=== PATIENT | male | born 1935 | race Caucasian/White ===

== ENCOUNTER 2018-03-22 14:33 | Inpatient (IN) | payer MEDICARE, OTHER ==
--- NOTE | 2018-03-22 15:12 | ED Physician Documentation ---
PD HPI GI BLEED - Stated complaint Stated Complaint: BLOODY STOOL - Chief complaint Chief Complaint: Abd Pain - History obtained from History obtained from: Patient - History of Present Illness Timing - onset: How many days ago (3) Timing - duration: Days (3) Timing - details: Abrupt onset, Still present Associated symptoms: Black/tarry stool. No: Vomiting, Hematemesis, Maroon stool, Diarrhea, Constipation, Abdominal pain, Fever Contributing factors: NSAID use (Aleve twice daily regularly). No: Sick contact, Bad food, Aspirin use Similar symptoms before: Has not had sx before Recently seen: Not recently seen Review of Systems Constitutional: reports: Fatigue. denies: Fever, Myalgias Nose: denies: Rhinorrhea / runny nose, Congestion Throat: denies: Sore throat Cardiac: denies: Chest pain / pressure Respiratory: denies: Dyspnea GI: reports: Bloody / black stool. denies: Abdominal Pain, Nausea, Vomiting, Constipation, Diarrhea : denies: Dysuria, Frequency Neurologic: reports: Generalized weakness. denies: Focal weakness, Near syncope PD PAST MEDICAL HISTORY - Past Medical History Cardiovascular: None Neuro: None Endocrine/Autoimmune: Type 2 diabetes : Benign prostate hypertrophy Musculoskeletal: Chronic back pain - Present Medications Home Medications: Ambulatory Orders Medication Instructions Recorded Confirmed Cholecalciferol (Vitamin D3) 2,000 unit PO DAILY 03/22/18 03/22/18 [Vitamin D] Cod Liver Oil 1 each PO DAILY 03/22/18 03/22/18 Finasteride 5 mg PO DAILY 03/22/18 03/22/18 Glucosamine HCl 1,500 mg PO DAILY 03/22/18 03/22/18 Multivitamin [Multivitamins] 1 each PO DAILY 03/22/18 03/22/18 Naproxen [Naprosyn] 500 mg PO Q8H 03/22/18 03/22/18 Omeprazole 20 mg PO DAILY 03/22/18 03/22/18 Pravastatin [Pravachol] 10 mg PO DAILY 03/22/18 03/22/18 Primidone 50 mg PO DAILY 03/22/18 03/22/18 diphenhydrAMINE [Benadryl] 25 mg PO ONCE 03/22/18 03/22/18 - Allergies Allergies/Adverse Reactions: Allergies Allergy/AdvReac Type Severity Reaction Status Date / Time Sulfa (Sulfonamide AdvReac Rash Verified 03/22/18 14:44 Antibiotics) PD ED PE NORMAL - Vitals Vital signs reviewed: Yes - General General: Alert and oriented X 3, No acute distress, Well developed/nourished - HEENT HEENT: Moist mucous membranes, Pharynx benign - Neck Neck: Supple, no meningeal sign, No adenopathy, No JVD - Cardiac Cardiac: RRR, No murmur - Respiratory Respiratory: Clear bilaterally - Abdomen Abdomen: Normal bowel sounds, Soft, Non tender, Non distended, No organomegaly - Male Male : Deferred - Rectal Rectal: Other (black to purple stool in vault, markedly guiac positive. No hemorrhoids. ) - Back Back: No CVA TTP - Derm Derm: Normal color, Warm and dry - Extremities Extremities: No deformity, No tenderness to palpate, Normal ROM s pain, No edema, No calf tenderness / cord - Neuro Neuro: Alert and oriented X 3 Eye Opening: Spontaneous Motor: Obeys Commands Verbal: Oriented GCS Score: 15 - Psych Psych: Normal mood, Normal affect Results - Vitals Vitals: Vital Signs - 24 hr 03/22/18 03/22/18 14:42 16:33 Temperature 36 C L Heart Rate 92 74 Respiratory 20 10 L Rate Blood Pressure 125/67 125/56 L O2 Saturation 100 100 Oxygen O2 Source Room air - Labs Labs: Laboratory Tests 03/22/18 03/22/18 16:10 16:10 WBC 8.7 RBC 2.61 L Hgb 8.3 L Hct 25.4 L MCV 97.5 H MCH 31.7 H MCHC 32.5 RDW 13.9 Plt Count 281 MPV 7.5 Neut # (Auto) 5.6 Lymph # (Auto) 2.1 [place] # (Auto) 0.6 Eos # (Auto) 0.3 Baso # (Auto) 0.0 Absolute Nucleated RBC 0.01 Nucleated RBC % 0.1 Sodium 139 Potassium 3.8 Chloride 101 Carbon Dioxide 26 Anion Gap 12.0 BUN 38 H Creatinine 1.3 H Estimated GFR (MDRD) 53 L Glucose 191 H Calcium 8.7 Magnesium 1.8 Total Bilirubin 0.7 AST 35 ALT 20 Alkaline Phosphatase 74 Total Protein 6.3 L Albumin 3.4 Globulin 2.9 Albumin/Globulin Ratio 1.2 Lipase 29 PD MEDICAL DECISION MAKING - ED course Complexity details: reviewed results (Hgb 8.3, will recheck in few hours.), considered differential (3 days of dark stool with general weakness. He does not have any abdominal pain or tenderness. He does take Aleve twice daily regularly for general pains. I would think it most likely to be gastric etiology. Will check his blood count, type and screen, give IV fluids and check orthostatics. I do not see evaluate and imaging at this point so defer any CT or ultrasound. Most useful would be a direct endoscopy.), d/w patient, d/w community health consultant (Matthias Marion, surgery - will consult on patient. ) Departure - Departure Disposition: 66 [facility] DC/Xfer Clinical Impression: GI bleeding Qualifiers: GI bleed type/associated pathology: unspecified gastrointestinal hemorrhage type Qualified Code(s): K92.2 - Gastrointestinal hemorrhage, unspecified Anemia Qualifiers: Anemia type: unspecified type Qualified Code(s): D64.9 - Anemia, unspecified Clinical Impression: (Ruled Out): Abdominal pain Condition: Stable Record reviewed to determine appropriate education?: Yes
[2018-03-22] MEDS ORDERED: SODIUM CHLORIDE 0.9% 1,000 ML IV ONE ×2 (15:39→17:34)
[2018-03-22] MEDS ORDERED: FAMOTIDINE 20 MG/50 ML 50 ML IV ONE (15:40)
[2018-03-22 16:33] LABS: BASOPHILS % (AUTO) 0.6 %; EOSINOPHILS # (AUTO) 0.3 10^3/uL (0.0-0.7); EOSINOPHILS % (AUTO) 3.3 %; HGB - HEMOGLOBIN 8.3 g/dL (14.0-18.0); LYMPHOCYTES # (AUTO) 2.1 10^3/uL (1.5-3.5); LYMPHOCYTES % (AUTO) 24.2 %; MEAN CORPUSCULAR HEMOGLOBIN 31.7 pg (27.0-31.0); MEAN CORPUSCULAR HGB CONC 32.5 g/dL (32.0-36.0); MEAN CORPUSCULAR VOLUME 97.5 fL (80.0-94.0); MEAN PLATELET VOLUME 7.5 fL (7.4-11.4); MONOCYTES # (AUTO) 0.6 10^3/uL (0.0-1.0); NEUTROPHILS # (AUTO) 5.6 10^3/uL (1.5-6.6); NEUTROPHILS % (AUTO) 64.9 %; PLT - PLATELET COUNT 281 10^3/uL (130-450); RED BLOOD COUNT 2.61 10^6/uL (4.70-6.10); RED CELL DISTRIBUTION WIDTH 13.9 % (12.0-15.0); WHITE BLOOD COUNT 8.7 x10^3/uL (4.8-10.8)
[2018-03-22 16:46] LABS: ALBUMIN 3.4 g/dL (3.2-5.5); ALBUMIN/GLOBULIN RATIO 1.2 (1.0-2.2); BILIRUBIN,TOTAL 0.7 mg/dL (0.2-1.0); CALCIUM 8.7 mg/dL (8.5-10.3); CREATININE 1.3 mg/dL (0.6-1.2); MAGNESIUM 1.8 mg/dL (1.7-2.8); TOTAL PROTEIN 6.3 g/dL (6.7-8.2)
[2018-03-22] MEDS ORDERED: PANTOPRAZOLE 40 MG VIAL IVP STA (17:34)
--- NOTE | 2018-03-22 17:49 | HISTORY & PHYSICAL EXAMINATION ---
Chief Complaint - Chief Complaint Chief Complaint: Melena with no abd pain on Alleve for chronic back pain GI Bleed Admit Template - Admitted From Admitted from: ED - History Obtained From Records Reviewed: RN notes reviewed History obtained from: Patient Exam limitations: No limitations (Pleasant 82 y/p) - History of Present Illness Context-bleeding started w/: reports: Bowel movement Timing: reports: Gradual onset Improved with: reports: Nothing Associated symptoms: reports: Feeling faint / dizzy, General Weakness (This is a pleasant 82 y/o with Type 2 DM, BPH Chroninc LBP who takes alleve prn for his back pain was shoveling now and noticed progressive weakness has been for the last 3 days having dark maroon like stools looking somewhat purple in color with increase in volume w/o abd pain, nause, emesis, hemoptysis, MP rash, joint swelling, chest pain, SOB, or other GI/ symptoms. On exam he had some mild pallor, initial hgb 8.3 and unknown baseline, would admit for possible upper endoscopy, Dr. Marion aware.) HPI Comment/Other: This is a pleasant 82 y/o with Type 2 DM, essential tremors, HLP, BPH Chronic LBP who takes alleve prn for his back pain was shoveling now and noticed progressive weakness has been for the last 3 days having dark maroon like stools looking somewhat purple in color with increase in volume w/o abd pain, nausea, emesis, hemoptysis, MP rash, joint swelling, chest pain, SOB, or other GI/ symptoms. On exam he had some mild pallor, initial hgb 8.3 and unknown baseline, would admit for possible upper endoscopy, Dr. Marion aware. PMH/PSH - Past Medical History Cardiovascular: positive: None Respiratory: positive: None Neuro: positive: None Endocrine/Autoimmune: positive: Type 2 diabetes GI: positive: GERD : positive: Benign prostate hypertrophy Musculoskeletal: positive: Chronic back pain Derm: positive: None MRSA Hx?: No - Past Surgical History General: positive: Hiatal hernia repair Social & Family Hx - Social History Does the pt smoke?: No Smoking Status: Never smoker Does the pt drink ETOH?: No Does the pt have substance abuse?: No Meds/Allgy - Home Medications Home Medications: Ambulatory Orders Medication Instructions Recorded Confirmed Cholecalciferol (Vitamin D3) 2,000 unit PO DAILY 03/22/18 03/22/18 [Vitamin D] Cod Liver Oil 1 each PO DAILY 03/22/18 03/22/18 Finasteride 5 mg PO DAILY 03/22/18 03/22/18 Glucosamine HCl 1,500 mg PO DAILY 03/22/18 03/22/18 Multivitamin [Multivitamins] 1 each PO DAILY 03/22/18 03/22/18 Naproxen [Naprosyn] 500 mg PO Q8H 03/22/18 03/22/18 Omeprazole 20 mg PO DAILY 03/22/18 03/22/18 Pravastatin [Pravachol] 10 mg PO DAILY 03/22/18 03/22/18 Primidone 50 mg PO DAILY 03/22/18 03/22/18 diphenhydrAMINE [Benadryl] 25 mg PO ONCE 03/22/18 03/22/18 - Allergies Allergies/Adverse Reactions: Allergies Allergy/AdvReac Type Severity Reaction Status Date / Time Sulfa (Sulfonamide AdvReac Rash Verified 03/22/18 14:44 Antibiotics) Review of Systems - Constitutional Constitutional: reports: Fatigue, Weakness - Ears, Nose & Throat Ears, Nose & Throat: denies: Tinnitus, Vertigo - Cardiovascular Cariovascular: denies: Irregular heart rate, Palpitations, Chest pain, Lightheadedness, Syncope, Exertional dyspnea - Respiratory Respiratory: denies: Sputum production, Wheezing, Hemoptysis, Orthopnea, SOB at rest, SOB with exertion, Pleuritic pain - Gastrointestinal Gastrointestinal: reports: Black stools, Bloody stools. denies: Abdominal pain, Abdominal distention, Constipation, Diarrhea, Nausea, Vomiting, Bile emesis, Justin blood emesis, Coffee grounds emesis, Reflux/heartburn, Bloating, Poor appetite - Genitourinary Genitourinary: denies: Dysuria, Frequency, Urgency - Musculoskeletal Musculoskeletal: denies: Muscle pain, Back pain, Stiffness - Integumentary Integumentary: denies: Rash, Pruritis, Lesions - Neurological Neurological: denies: General weakness, Focal weakness, Headache, Memory problems - Psychiatric Psychiatric: denies: Depression, Hallucinations - Endocrine Endocrine: denies: Polyuria, Polydypsia, Polyphagia - Hematologic/Lymphatic Hematologic/Lymphatic: reports: Blood clots. denies: Anemia Prior Level of Functionality: Independent with home ADL's Exam - Vital Signs Reviewed Vital Signs: Yes Vital Signs: Vital Signs x48h Temp Pulse Resp BP Pulse Ox 03/22/18 16:33 74 10 L 125/56 L 100 03/22/18 14:42 36 C L 92 20 125/67 100 - Physical Exam General Appearance: positive: No acute distress, Alert Eyes Bilateral: positive: Normal inspection, PERRL, EOMI, Conjunctivae nml, No scleral icterus ENT: positive: ENT inspection nml, Pharynx nml Neck: positive: Thyroid nml, No JVD, Trachea midline. negative: Thyromegaly Respiratory: positive: Chest non-tender, No respiratory distress, Breath sounds nml Cardiovascular: positive: Regular rate & rhythm, No murmur, No gallop. negative: Irregularly irregular, JVD present Peripheral Pulses: positive: 2+ Abdomen: positive: Non-tender, No organomegaly, Nml bowel sounds, No distention. negative: Tenderness Rectal: positive: Stool - heme POS Skin: positive: Color nml, No rash, Warm, Pallor. negative: Skin rash Extremities: positive: Non-tender, Full ROM, Nml appearance. negative: Pedal edema, Joint swelling Neurologic/Psychiatric: positive: Oriented x3, CN's nml (2-12) Results - Lab Results Lab results reviewed: Yes Fish Bones: 03/22/18 16:10 03/22/18 16:10 Other Lab Results: Lab Results x24hrs 03/22/18 03/22/18 03/22/18 Range/Units 16:10 16:10 16:10 WBC 8.7 (4.8-10.8) x10^3/uL RBC 2.61 L (4.70-6.10) 10^6/uL Hgb 8.3 L (14.0-18.0) g/dL Hct 25.4 L (42.0-52.0) % MCV 97.5 H (80.0-94.0) fL MCH 31.7 H (27.0-31.0) pg MCHC 32.5 (32.0-36.0) g/dL RDW 13.9 (12.0-15.0) % Plt Count 281 (130-450) 10^3/uL MPV 7.5 (7.4-11.4) fL Neut # (Auto) 5.6 (1.5-6.6) 10^3/uL Lymph # (Auto) 2.1 (1.5-3.5) 10^3/uL [place] # (Auto) 0.6 (0.0-1.0) 10^3/uL Eos # (Auto) 0.3 (0.0-0.7) 10^3/uL Baso # (Auto) 0.0 (0.0-0.1) 10^3/uL Absolute Nucleated RBC 0.01 x10^3/uL Nucleated RBC % 0.1 /100WBC Sodium 139 (135-145) mmol/L Potassium 3.8 (3.5-5.0) mmol/L Chloride 101 (101-111) mmol/L Carbon Dioxide 26 (21-32) mmol/L Anion Gap 12.0 (6-13) BUN 38 H (6-20) mg/dL Creatinine 1.3 H (0.6-1.2) mg/dL Estimated GFR (MDRD) 53 L (>89) Glucose 191 H (70-100) mg/dL Calcium 8.7 (8.5-10.3) mg/dL Magnesium 1.8 (1.7-2.8) mg/dL Total Bilirubin 0.7 (0.2-1.0) mg/dL AST 35 (10-42) IU/L ALT 20 (10-60) IU/L Alkaline Phosphatase 74 (42-121) IU/L Total Protein 6.3 L (6.7-8.2) g/dL Albumin 3.4 (3.2-5.5) g/dL Globulin 2.9 (2.1-4.2) g/dL Albumin/Globulin Ratio 1.2 (1.0-2.2) Lipase 29 (22-51) U/L Blood Type O POSITIVE Antibody Screen NEGATIVE - EKG Results EKG Interpreted Independently: No Impression/Plan - Problem List Problem List: 1. UGIB sec to NSAIDS vs bleeding PUD 2. Acute blood loss anemia 3. Generalized weakness sec to above 4. BPH 5. Hyperlipidemia 6. Essential tremors 7. Advanced Care planning and counseling 8. Type 2 DM Plan: Will admit to tele/obs. NPO, bowel rest, start IV protonic 40 mg BID plus sandostatin gtt, IVF's to run, place on ISS with NPO protocol, check iron, vitb12/FA due to macrocytosis, TSH, HgbA1c. Patient likely has a NSAID induced bleeding ulcer due to the chronicity of taking naproxen for his chronic back pain. Would need an EGD with Dr. Marion who was consulted in ED. Serial H/H with transfusion if Hgb<7 g/dl due to no evidence of cardiac disease. DVT ppx with SCD's only, already will have a PPI for dvt ppx. Advanced Care planning and counseling was done. Patient has a clear understanding of his medical condition and we discussed goals of care, symptom mgmt in terms of giving blood transfusions, placing on NPO for bowel rest and managing his diabetes. In the setting of cardiac or neurological events he expressed his wishes for full resuscitative efforts but would not continue with aggressive means if medical futility was present. Code status: Full code Core Measures - Anticipated LOS I expect patient to be DC'd or transferred within 96 hours.: Yes - Issues Hospital Issues and Management Plan: EGD, NPO, IVF;s and supportive care, IV PPI/Sandostantin - DVT/VTE - Prophylaxis VTE/DVT Device ordered at admit?: Yes VTE/DVT Prophylaxis med ordered at admit?: No Not Ordered - Medical Reason: Contraindicated - Stroke - Rehab Assessment Rehab services assessment to be ordered?: No Not Ordered - Medical Reason: Not indicated - AMI - Statin at Admit Aspirin Prescribed on Admit: No Not Ordered - Medical Reason: Not indicated
[2018-03-22] MEDS ORDERED: ONDANSETRON 4 MG/2 ML VIAL IVP PRN (17:52)
[2018-03-22] MEDS ORDERED: PROCHLORPERAZINE 10 MG/2 ML VIAL IVP PRN (17:52)
[2018-03-22 18:26] LABS: % IRON SATURATION 7 % (20-50); IRON 28 ug/dL (45-182); TOTAL IRON BINDING CAPACITY 384 ug/dL (250-450); TRANSFERRIN 274 mg/dL (180-329)
[2018-03-22 18:38] LABS: THYROID STIMULATING HORMONE 1.3 uIU/mL (0.34-5.60)
[2018-03-22 19:02] LABS: HB2 TOTAL 8.6 g/dL; HEMOGLOBIN A1C 0.43 g/dL; HEMOGLOBIN A1C % 6.7 % (4.6-6.2)
[2018-03-22] MEDS: D5NS W/20 MEQ KCL 1,000 ML IV SCH (19:02)
[2018-03-22 19:26] LABS: BASOPHILS # (AUTO) 0.1 10^3/uL (0.0-0.1); BASOPHILS % (AUTO) 0.6 %; EOSINOPHILS # (AUTO) 0.3 10^3/uL (0.0-0.7); EOSINOPHILS % (AUTO) 3.1 %; HGB - HEMOGLOBIN 7.3 g/dL (14.0-18.0); LYMPHOCYTES # (AUTO) 2.7 10^3/uL (1.5-3.5); LYMPHOCYTES % (AUTO) 29.4 %; MEAN CORPUSCULAR HEMOGLOBIN 32.3 pg (27.0-31.0); MEAN CORPUSCULAR HGB CONC 32.5 g/dL (32.0-36.0); MEAN CORPUSCULAR VOLUME 99.3 fL (80.0-94.0); MEAN PLATELET VOLUME 7.4 fL (7.4-11.4); MONOCYTES % (AUTO) 10.3 %; NEUTROPHILS # (AUTO) 5.3 10^3/uL (1.5-6.6); NEUTROPHILS % (AUTO) 56.6 %; PLT - PLATELET COUNT 264 10^3/uL (130-450); RED BLOOD COUNT 2.25 10^6/uL (4.70-6.10); RED CELL DISTRIBUTION WIDTH 13.7 % (12.0-15.0); WHITE BLOOD COUNT 9.3 x10^3/uL (4.8-10.8)
--- NOTE | 2018-03-22 19:53 | CONSULTATION NOTE ---
Referring Provider Name of Referring Provider:: Consult Date: 03/22/18 Chief Complaint - Chief Complaint Chief Complaint: black tarry stools History of Present Illness - Admitted From Admitted From:: ER - History Obtained From Records Reviewed: yes History obtained from: pt, records Exam Limitations: none - History of Present Illness HPI Comment/Other: 82 yo male with 3 days of passing black tarry bowel movements. Up to 3 per day. No N/V, abd pain, hematochezia, previous similar episodes, dizziness or syncope, or wt loss. No hx PUD. He does have chronic GERD which is well controlled with 20 mg omeprazole daily. Neg Fh GI tumors. His last and only colonoscopy was approximately [address] [facility], which was incomplete and was foll owed by a barium enema which was nl per pt. He takes naproxen 500 mg BID for chronic low back pain; no tobacco; minimal alcohol, denies other NSAID or steroid use. History - Past Medical History Cardiovascular: reports: None Respiratory: reports: None Neuro: reports: None Endocrine/Autoimmune: reports: Type 2 diabetes GI: reports: GERD : reports: Benign prostate hypertrophy Musculoskeletal: reports: Chronic back pain Derm: reports: None MRSA Hx?: No - Past Surgical History General: reports: Colonoscopy, Other (BIH, umbilical hernia repairs) Neuro: reports: Craniotomy (x 2 for benign tumor) - Family & Social History Family History Comment/Other: neg for GI tumors Living arrangement: At home - Substance History Use: Uses substance without health or social issues: NONE Meds/Allgy - Home Medications Home Medications: Ambulatory Orders Medication Instructions Recorded Confirmed Cholecalciferol (Vitamin D3) 2,000 unit PO DAILY 03/22/18 03/22/18 [Vitamin D] Cod Liver Oil 1 each PO DAILY 03/22/18 03/22/18 Finasteride 5 mg PO DAILY 03/22/18 03/22/18 Glucosamine HCl 1,500 mg PO DAILY 03/22/18 03/22/18 Multivitamin [Multivitamins] 1 each PO DAILY 03/22/18 03/22/18 Naproxen [Naprosyn] 500 mg PO Q8H 03/22/18 03/22/18 Omeprazole 20 mg PO DAILY 03/22/18 03/22/18 Pravastatin [Pravachol] 10 mg PO DAILY 03/22/18 03/22/18 Primidone 50 mg PO DAILY 03/22/18 03/22/18 diphenhydrAMINE [Benadryl] 25 mg PO ONCE 03/22/18 03/22/18 - Allergies Allergies/Adverse Reactions: Allergies Allergy/AdvReac Type Severity Reaction Status Date / Time Sulfa (Sulfonamide AdvReac Rash Verified 03/22/18 14:44 Antibiotics) Review of Systems - Constitutional Constitutional: denies: Weight loss - Cardiovascular Cariovascular: denies: Chest pain, Lightheadedness, Syncope - Respiratory Respiratory: denies: Cough, Sputum production - Gastrointestinal Gastrointestinal: reports: Change in bowel habits, Black stools, Reflux/heartburn. denies: Abdominal pain, Abdominal distention, Constipation, Diarrhea, Rectal bleeding, Bloody stools, Nausea, Vomiting, Coffee grounds emesis, Bloating, Poor appetite - Hematologic/Lymphatic Hematologic/Lymphatic: denies: Blood clots, Bleeding tendencies - All Other Systems All Other Systems: reports: Reviewed and negative Exam - Vital Signs Reviewed Vital Signs: Yes Vital Signs: Vital Signs x48h Temp Pulse Pulse Resp BP BP Pulse Ox 03/22/18 19:30 36.6 C 81 18 113/58 L 100 03/22/18 18:00 75 13 123/54 L 100 03/22/18 16:33 74 10 L 125/56 L 100 03/22/18 14:42 36 C L 92 20 125/67 100 - Physical Exam General Appearance: positive: No acute distress, Alert Eyes Bilateral: positive: Normal inspection, No scleral icterus, Other (conjunctivae pale) ENT: positive: ENT inspection nml, Pharynx nml, Dry mucous membranes Neck: positive: Nml inspection, No JVD. negative: Lymphadenopathy (R), Lymphadenopathy (L) Respiratory: positive: Chest non-tender, No respiratory distress, Breath sounds nml. negative: Wheezes, Rales, Rhonchi Cardiovascular: positive: Regular rate & rhythm, No murmur, No gallop Abdomen: positive: Non-tender, No organomegaly, Nml bowel sounds, No distention. negative: Guarding, Rebound, Hepatomegaly, Splenomegaly, Mass Skin: positive: Color nml, No rash, Warm, Dry. negative: Cyanosis Extremities: positive: No pedal edema. negative: Calf tenderness Neurologic/Psychiatric: positive: Oriented x3 Conclusion/Plan - Diagnosis Diagnosis: GI bleed/melena. DDX includes UGI sources such as PUD, ulcerative esophagitis, dieulafoy lesion, angiodysplasia, UGI malignancy, doubt varices, doubt LGI source but can not r/o. - Plan Plan: Agree with IVF, empiric high dose PPI therapy, transfuse as necessary. EGD in am. PAR conference with pt. IF neg, will need colonoscopy for further evaluation. thanks, - Lab Results Lab results reviewed: Yes Peter Bones: 03/22/18 17:10 03/22/18 16:10
[2018-03-22] MEDS: INSULIN REGULAR HUMAN 100 UNIT/1 ML 10 ML MDV SUBQ SCH (19:58)
[2018-03-22] MEDS: OCTREOTIDE 500 MCG in SODIUM CHLORIDE 0.9% 100ML 99 ML IV SCH (20:18)
[2018-03-22] MEDS: PANTOPRAZOLE 40 MG VIAL IVP SCH (20:47)
[2018-03-22 22:03] LABS: HGB - HEMOGLOBIN 6.4 g/dL (14.0-18.0)
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
[2018-03-22] MEDS ORDERED: SODIUM CHLORIDE 0.9% 500 ML IV ONE (22:17)
[2018-03-23] MEDS: INSULIN REGULAR HUMAN 100 UNIT/1 ML 10 ML MDV SUBQ SCH ×4 (00:07→18:19)
[2018-03-23] MEDS: SODIUM CHLORIDE FLUSH 0.9% 10 ML SYRINGE IVP SCH ×3 (00:09→18:19)
[2018-03-23] MEDS ORDERED: SODIUM CHLORIDE 0.9% 500 ML IV ONE (01:19)
[2018-03-23] MEDS: ACETAMINOPHEN 325 MG TABLET PO PRN ×2 (01:41→12:25)
[2018-03-23] MEDS: SODIUM CHLORIDE FLUSH 0.9% 10 ML SYRINGE IVP PRN ×2 (01:43→01:44)
[2018-03-23] MEDS: D5NS W/20 MEQ KCL 1,000 ML IV SCH ×3 (02:07→19:31)
[2018-03-23 05:43] LABS: BASOPHILS # (AUTO) 0.1 10^3/uL (0.0-0.1); BASOPHILS % (AUTO) 0.8 %; EOSINOPHILS # (AUTO) 0.2 10^3/uL (0.0-0.7); EOSINOPHILS % (AUTO) 2.9 %; HGB - HEMOGLOBIN 8.1 g/dL (14.0-18.0); LYMPHOCYTES # (AUTO) 1.5 10^3/uL (1.5-3.5); LYMPHOCYTES % (AUTO) 18.2 %; MEAN CORPUSCULAR HEMOGLOBIN 31.4 pg (27.0-31.0); MEAN CORPUSCULAR HGB CONC 33.7 g/dL (32.0-36.0); MEAN CORPUSCULAR VOLUME 93.4 fL (80.0-94.0); MEAN PLATELET VOLUME 7.5 fL (7.4-11.4); MONOCYTES # (AUTO) 0.8 10^3/uL (0.0-1.0); MONOCYTES % (AUTO) 9.6 %; NEUTROPHILS # (AUTO) 5.7 10^3/uL (1.5-6.6); NEUTROPHILS % (AUTO) 68.5 %; PLT - PLATELET COUNT 204 10^3/uL (130-450); RED BLOOD COUNT 2.58 10^6/uL (4.70-6.10); RED CELL DISTRIBUTION WIDTH 15.7 % (12.0-15.0); WHITE BLOOD COUNT 8.3 x10^3/uL (4.8-10.8)
[2018-03-23 05:50] LABS: ALBUMIN 2.8 g/dL (3.2-5.5); CALCIUM 7.5 mg/dL (8.5-10.3); CREATININE 1.1 mg/dL (0.6-1.2); PHOSPHORUS 3.3 mg/dL (2.5-4.6)
[2018-03-23] MEDS: OCTREOTIDE 500 MCG in SODIUM CHLORIDE 0.9% 100ML 99 ML IV SCH ×2 (06:08→19:26)
--- NOTE | 2018-03-23 07:44 | ANESTHESIA ---
Pre-Anesthesia VS, & Labs - Diagnosis Diagnosis GI bleed/melena. DDX includes UGI sources such as PUD, ulcerative esophagitis, dieulafoy lesion , angiodysplasia, UGI malignancy, doubt varices, doubt LGI source but can not r/o. - Procedure EGD Vital Signs: Temp Pulse Resp BP Pulse Ox 36.5 C 31 L 16 134/70 H 100 03/23/18 04:25 03/23/18 04:25 03/23/18 04:25 03/23/18 04:25 03/23/18 04:25 Height 6 ft Weight (kg) 89.5 kg Body Mass Index 26.7 - NPO >8 hours - Lab Results Current Lab Results: Laboratory Tests 03/23/18 05:58: POC Whole Bld Glucose 176 H 03/23/18 05:21: Sodium 137, Potassium 4.3, Chloride 104, Carbon Dioxide 24, Anion Gap 9.0, BUN 33 H, Creatinine 1.1, Estimated GFR (MDRD) 64 L, Glucose 203 H, Calcium 7.5 L, Phosphorus 3.3, Albumin 2.8 L 03/23/18 05:21: WBC 8.3, RBC 2.58 L, Hgb 8.1 L, Hct 24.1 L, MCV 93.4, MCH 31.4 H , MCHC 33.7, RDW 15.7 H, Plt Count 204, MPV 7.5, Neut # (Auto) 5.7, Lymph # (Auto) 1.5, [place] # (Auto) 0.8, Eos # (Auto) 0.2, Baso # (Auto) 0.1, Absolute Nucleated RBC 0.00, Nucleated RBC % 0.0 03/22/18 23:48: POC Whole Bld Glucose 228 H 03/22/18 21:50: Hgb 6.4 L*, Hct 19.3 L* 03/22/18 19:12: POC Whole Bld Glucose 119 H 03/22/18 17:10: Blood Type Recheck O POSITIVE 03/22/18 17:10: WBC 9.3, RBC 2.25 L, Hgb 7.3 L, Hct 22.3 L, MCV 99.3 H, MCH 32.3 H, MCHC 32.5, RDW 13.7, Plt Count 264, MPV 7.4, Neut # (Auto) 5.3, Lymph # (Auto) 2.7, [place] # (Auto) 1.0, Eos # (Auto) 0.3, Baso # (Auto) 0.1, Absolute Nucleated RBC 0.00, Nucleated RBC % 0.0 03/22/18 16:10: Blood Type Cancelled, Antibody Screen Cancelled, Crossmatch IS Only See Detail 03/22/18 16:10: Glycated Hemoglobin 6.7 H, Estim Average Glucose 146 H 03/22/18 16:10: Blood Type Cancelled, Antibody Screen Cancelled, Crossmatch IS Only See Detail 03/22/18 16:10: Blood Type O POSITIVE, Antibody Screen NEGATIVE 03/22/18 16:10: Sodium 139, Potassium 3.8, Chloride 101, Carbon Dioxide 26, Anion Gap 12.0, BUN 38 H, Creatinine 1.3 H, Estimated GFR (MDRD) 53 L, Glucose 191 H, Calcium 8.7, Magnesium 1.8, Total Bilirubin 0.7, AST 35, ALT 20, Alkaline Phosphatase 74, Total Protein 6.3 L, Albumin 3.4, Globulin 2.9, Albumin/Globulin Ratio 1.2, Lipase 29 03/22/18 16:10: WBC 8.7, RBC 2.61 L, Hgb 8.3 L, Hct 25.4 L, MCV 97.5 H, MCH 31.7 H, MCHC 32.5, RDW 13.9, Plt Count 281, MPV 7.5, Neut # (Auto) 5.6, Lymph # (Auto) 2.1, [place] # (Auto) 0.6, Eos # (Auto) 0.3, Baso # (Auto) 0.0, Absolute Nucleated RBC 0.01, Nucleated RBC % 0.1 03/22/18 15:40: Vitamin B12 251, Folate 31.00, TSH 1.30 03/22/18 15:40: Iron 28 L, TIBC 384, % Saturation 7 L, Transferrin 274 Fish Bones: 03/23/18 05:21 03/23/18 05:21 Home Medications and Allergies Home Medications: Ambulatory Orders Cholecalciferol (Vitamin D3) [Vitamin D] 2,000 unit PO DAILY 03/22/18 Cod Liver Oil 1 each PO DAILY 03/22/18 Finasteride 5 mg PO DAILY 03/22/18 Glucosamine HCl 1,500 mg PO DAILY 03/22/18 Multivitamin [Multivitamins] 1 each PO DAILY 03/22/18 Naproxen [Naprosyn] 500 mg PO Q8H 03/22/18 Omeprazole 20 mg PO DAILY 03/22/18 Pravastatin [Pravachol] 10 mg PO DAILY 03/22/18 Primidone 50 mg PO DAILY 03/22/18 diphenhydrAMINE [Benadryl] 25 mg PO ONCE 03/22/18 Active Medications Acetaminophen (Tylenol) 650 mg PO Q4HR PRN PRN Reason: Pain or Fever > 38C (100.4F) Last Admin: 03/23/18 01:41 Dose: 650 mg Potassium Chloride/Dextrose/Sod Cl () 1,000 mls @ 125 mls/hr IV .Q8H [facility] Last Admin: 03/23/18 02:07 Dose: 125 mls/hr Octreotide Acetate 500 mcg/ (Sodium Chloride) 100 mls @ 10 mls/hr IV .Q10H [facility] Last Admin: 03/23/18 06:08 Dose: 50 mcg/hr, 10 mls/hr Insulin Human Regular (Novolin R) 2 - 10 unit SUBQ Q6HR [facility]; Protocol Last Admin: 03/23/18 06:09 Dose: 2 unit Ondansetron HCl (Zofran Inj) 4 mg IVP Q6HR PRN PRN Reason: Nausea / Vomiting Pantoprazole Sodium (Protonix) 40 mg IVP BID [facility] Last Admin: 03/22/18 20:47 Dose: 40 mg Polyethylene Glycol (Miralax) 17 gm PO DAILY [facility] Prochlorperazine Edisylate (Compazine Inj) 10 mg IVP Q6HR PRN PRN Reason: Nausea / Vomiting Sodium Chloride (Normal Saline Flush 0.9%) 10 ml IVP PRN PRN PRN Reason: NEEDED PER PROVIDER ORDERS Last Admin: 03/23/18 01:44 Dose: 10 ml Sodium Chloride (Normal Saline Flush 0.9%) 10 ml IVP 0100,0900,1700 [facility] Last Admin: 03/23/18 00:09 Dose: Not Given Cholecalciferol (Vitamin D3) [Vitamin D] 2,000 unit PO DAILY 03/22/18 Cod Liver Oil 1 each PO DAILY 03/22/18 Finasteride 5 mg PO DAILY 03/22/18 Glucosamine HCl 1,500 mg PO DAILY 03/22/18 Multivitamin [Multivitamins] 1 each PO DAILY 03/22/18 Naproxen [Naprosyn] 500 mg PO Q8H 03/22/18 Omeprazole 20 mg PO DAILY 03/22/18 Pravastatin [Pravachol] 10 mg PO DAILY 03/22/18 Primidone 50 mg PO DAILY 03/22/18 diphenhydrAMINE [Benadryl] 25 mg PO ONCE 03/22/18 Allergies/Adverse Reactions: Allergies Allergy/AdvReac Type Severity Reaction Status Date / Time Sulfa (Sulfonamide AdvReac Rash Verified 03/22/18 14:44 Antibiotics) Anes History & Medical History - Anesthetic History Anesthesia Complications: reports: No previous complications - Medical History Cardiovascular: reports: None Pulmonary: reports: None Gastrointestinal: reports: GERD Urinary: reports: Benign prostate hypertrophy Neuro: reports: None, Other (crani for tumor) Musculoskeletal: reports: Chronic back pain Endocrine/Autoimmune: reports: Type 2 diabetes Blood Disorders: reports: None Skin: reports: None Smoking Status: Former smoker - Surgical History General: Colonoscopy, Other (BIH, umbilical hernia repairs) Urologic: Bladder surgery Neurologic: Craniotomy (x 2 for benign tumor) Exam General: Alert Dental: WNL Mouth Opening: Greater than 4 Fingerbreadths Neck Mobility: Normal Respiratory: Lungs clear Cardiovascular: Regular rate Plan Anesthesia Type: MAC Consent for Procedure(s) Verified and Reviewed: Yes Code Status: Attempt Resuscitation ASA classification: 2-Mild systemic disease Is this case an emergency?: Yes
--- NOTE | 2018-03-23 08:16 | PROVIDER PROGRESS NOTE ---
Assessment/Plan - Problem List (1) GI bleeding Qualifiers: GI bleed type/associated pathology: unspecified gastrointestinal hemorrhage type Qualified Code(s): K92.2 - Gastrointestinal hemorrhage, unspecified Assessment/Plan: Ongoing, etiology as yet unclear. Hemodynamically stable; plan EGD this morning. - Current Meds Current Meds: Current Medications Generic Name Dose Route Start Last Admin Trade Name Freq PRN Reason Stop Dose Admin Acetaminophen 650 mg 03/23/18 01:22 03/23/18 01:41 Tylenol PO 650 mg Q4HR PRN Administration Pain or Fever > 38C (100.4F) Potassium Chloride/Dextrose/Sod Cl 1,000 mls @ 125 mls/hr 03/22/18 19:00 03/23/18 02:07 IV 125 mls/hr .Q8H [facility] Administration Octreotide Acetate 500 mcg/ 100 mls @ 10 mls/hr 03/22/18 20:00 03/23/18 06:08 Sodium Chloride IV 50 mcg/hr .Q10H [facility] 10 mls/hr Administration 50 MCG/HR Insulin Human Regular 2 - 10 unit 03/22/18 19:00 03/23/18 06:09 Novolin R SUBQ 2 unit Q6HR [facility] Administration Protocol Pantoprazole Sodium 40 mg 03/22/18 20:00 03/22/18 20:47 Protonix IVP 40 mg BID [facility] Administration Sodium Chloride 10 ml 03/22/18 17:52 03/23/18 01:44 Normal Saline Flush 0.9% IVP 10 ml PRN PRN Administration NEEDED PER PROVIDER ORDERS Sodium Chloride 10 ml 03/23/18 01:00 03/23/18 00:09 Normal Saline Flush 0.9% IVP Not Given 0100,0900,1700 [facility] - Lab Result Fish Bone Diagrams: 03/23/18 05:21 03/23/18 05:21 Other Lab Results: Received 2 units PRBCS over night Subjective - Subjective Patient Reports: No Complaints (except passing large black stool last night with dizziness and near syncope; none since; received 2 units prbcs) Objective Vital Signs: Vital Signs - 24 hr 03/22/18 03/22/18 03/22/18 14:42 16:33 18:00 Temperature 36 C L Heart Rate 92 74 75 Heart Rate [ Brachial] Respiratory 20 10 L 13 Rate Blood Pressure 125/67 125/56 L 123/54 L Blood Pressure [Left Brachial artery] Blood Pressure [Right Brachial artery] O2 Saturation 100 100 100 03/22/18 03/22/18 03/22/18 19:30 21:42 21:45 Temperature 36.6 C 36.4 C L Heart Rate Heart Rate [ 81 86 84 Brachial] Respiratory 18 Rate Blood Pressure Blood Pressure 113/47 L [Left Brachial artery] Blood Pressure 113/58 L 130/50 L [Right Brachial artery] O2 Saturation 100 95 98 03/22/18 03/22/18 03/22/18 22:15 22:35 22:45 Temperature 36.7 C 36.7 C 36.7 C Heart Rate 76 73 76 Heart Rate [ 76 Brachial] Respiratory 12 12 12 Rate Blood Pressure 101/46 L 98/47 L 109/42 L Blood Pressure 101/46 L [Left Brachial artery] Blood Pressure [Right Brachial artery] O2 Saturation 99 03/22/18 03/23/18 03/23/18 23:46 01:06 01:34 Temperature 36.5 C 36.6 C 36.6 C Heart Rate 79 76 Heart Rate [ 82 Brachial] Respiratory 17 14 15 Rate Blood Pressure 116/55 L 116/53 L Blood Pressure [Left Brachial artery] Blood Pressure 115/42 L [Right Brachial artery] O2 Saturation 99 03/23/18 03/23/18 03/23/18 01:50 01:58 04:23 Temperature 36.6 C 36.7 C 36.5 C Heart Rate 76 76 81 Heart Rate [ Brachial] Respiratory 15 16 16 Rate Blood Pressure 127/60 114/53 L 134/70 H Blood Pressure [Left Brachial artery] Blood Pressure [Right Brachial artery] O2 Saturation 03/23/18 03/23/18 04:25 08:08 Temperature 36.5 C 36.5 C Heart Rate Heart Rate [ 31 L 76 Brachial] Respiratory 16 16 Rate Blood Pressure Blood Pressure 134/70 H [Left Brachial artery] Blood Pressure 108/58 L [Right Brachial artery] O2 Saturation 100 100 Oxygen O2 Source Nasal cannula I&O (Last 24 Hrs): Intake and Output Totals x24h 03/21/18 03/22/18 03/23/18 23:59 23:59 23:59 Intake Total 1241.3 1681.750 Output Total 425 Balance 1241.3 1256.750 General: Alert, Oriented x3, Cooperative, No acute distress Neck: No JVD Neuro: Alert Abdomen: Soft, No tenderness, No hepatospenomegaly, No masses Extremities: No edema, No tenderness/swelling - Results Results: Laboratory Results WBC 8.3 x10^3/uL (4.8-10.8) 03/23/18 05:21 RBC 2.58 10^6/uL (4.70-6.10) L 03/23/18 05:21 Hgb 8.1 g/dL (14.0-18.0) L 03/23/18 05:21 Hct 24.1 % (42.0-52.0) L 03/23/18 05:21 MCV 93.4 fL (80.0-94.0) 03/23/18 05:21 MCH 31.4 pg (27.0-31.0) H 03/23/18 05:21 MCHC 33.7 g/dL (32.0-36.0) 03/23/18 05:21 RDW 15.7 % (12.0-15.0) H 03/23/18 05:21 Plt Count 204 10^3/uL (130-450) 03/23/18 05:21 MPV 7.5 fL (7.4-11.4) 03/23/18 05:21 Neut # (Auto) 5.7 10^3/uL (1.5-6.6) 03/23/18 05:21 Lymph # (Auto) 1.5 10^3/uL (1.5-3.5) 03/23/18 05:21 [place] # (Auto) 0.8 10^3/uL (0.0-1.0) 03/23/18 05:21 Eos # (Auto) 0.2 10^3/uL (0.0-0.7) 03/23/18 05:21 Baso # (Auto) 0.1 10^3/uL (0.0-0.1) 03/23/18 05:21 Absolute Nucleated RBC 0.00 x10^3/uL 03/23/18 05:21 Nucleated RBC % 0.0 /100WBC 03/23/18 05:21 Sodium 137 mmol/L (135-145) 03/23/18 05:21 Potassium 4.3 mmol/L (3.5-5.0) 03/23/18 05:21 Chloride 104 mmol/L (101-111) 03/23/18 05:21 Carbon Dioxide 24 mmol/L (21-32) 03/23/18 05:21 Anion Gap 9.0 (6-13) 03/23/18 05:21 BUN 33 mg/dL (6-20) H 03/23/18 05:21 Creatinine 1.1 mg/dL (0.6-1.2) 03/23/18 05:21 Estimated GFR (MDRD) 64 (>89) L 03/23/18 05:21 Glucose 203 mg/dL (70-100) H 03/23/18 05:21 POC Whole Bld Glucose 176 mg/dL (70 - 100) H 03/23/18 05:58 Glycated Hemoglobin 6.7 % (4.6-6.2) H 03/22/18 16:10 Estim Average Glucose 146 (70-100) H 03/22/18 16:10 Calcium 7.5 mg/dL (8.5-10.3) L 03/23/18 05:21 Phosphorus 3.3 mg/dL (2.5-4.6) 03/23/18 05:21 Magnesium 1.8 mg/dL (1.7-2.8) 03/22/18 16:10 Iron 28 ug/dL (45-182) L 03/22/18 15:40 TIBC 384 ug/dL (250-450) 03/22/18 15:40 % Saturation 7 % (20-50) L 03/22/18 15:40 Transferrin 274 mg/dL (180-329) 03/22/18 15:40 Total Bilirubin 0.7 mg/dL (0.2-1.0) 03/22/18 16:10 AST 35 IU/L (10-42) 03/22/18 16:10 ALT 20 IU/L (10-60) 03/22/18 16:10 Alkaline Phosphatase 74 IU/L (42-121) 03/22/18 16:10 Total Protein 6.3 g/dL (6.7-8.2) L 03/22/18 16:10 Albumin 2.8 g/dL (3.2-5.5) L 03/23/18 05:21 Globulin 2.9 g/dL (2.1-4.2) 03/22/18 16:10 Albumin/Globulin Ratio 1.2 (1.0-2.2) 03/22/18 16:10 Lipase 29 U/L (22-51) 03/22/18 16:10 Vitamin B12 251 pg/mL (180-914) 03/22/18 15:40 Folate 31.00 ng/mL (5.90 - >24.8) 03/22/18 15:40 TSH 1.30 uIU/mL (0.34-5.60) 03/22/18 15:40 Blood Type O POSITIVE 03/22/18 16:10 Blood Type Recheck O POSITIVE 03/22/18 17:10 Antibody Screen NEGATIVE 03/22/18 16:10 Crossmatch IS Only See Detail 03/22/18 16:10 ABX Reporting Has patient been on IV antibiotics over the past 48 hours?: No
[2018-03-23] MEDS ORDERED: LACTATED RINGERS 1,000 ML IV ONE ×2 (08:45→08:54)
[2018-03-23] MEDS ORDERED: POLYETHYLENE GLYCOL 3350 17 GM PACKET PO SCH (09:00)
[2018-03-23] MEDS ORDERED: PROPOFOL 200 MG/20 ML VIAL IVP ONE (09:06)
[2018-03-23] MEDS ORDERED: LIDOCAINE-MPF 2% 5 ML VIAL IM ONE (09:06)
--- NOTE | 2018-03-23 09:09 | PROCEDURE REPORT ---
Hospitalist Procedure Note - Procedure Note Procedure Note: 03/23/18: EGD: findings: 1. No blood in UGI tract; no UGI source of bleeding identified 2. 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 3. Esophageal polyp at 36 cm 4. Hiatal hernia. Rec: CT angio to attempt localization of source of bleeding today.
[2018-03-23] MEDS ORDERED: IOVERSOL 320 100 ML VIAL IVP ONE ×2 (09:29→10:13)
[2018-03-23] MEDS: PANTOPRAZOLE 40 MG VIAL IVP SCH (09:39)
--- NOTE | 2018-03-23 10:45 | CT Report ---
Reason: LOWER GI BLEED, ASSESS FOR ETIOLOGY Procedure Date: 03/23/2018 Accession Number: [id number] / [id number] Procedure: CT - Abdomen/Pelvis Angio CPT Code: FULL RESULT: EXAM: CT ANGIOGRAM ABDOMEN AND PELVIS WITH AND WITHOUT CONTRAST EXAM DATE: 03/23/2018 09:55 AM. CLINICAL HISTORY: LOWER GI BLEED, ASSESS FOR ETIOLOGY. COMPARISONS: 11/19/2015. TECHNIQUE: Routine helical CT angiogram imaging was performed through the abdomen and pelvis in the arterial phase and without contrast. IV contrast: ISOVUE 300 100mL. Enteric contrast: No. Reconstructions: Coronal, sagittal, and 3D MIP reconstructions. In accordance with CT protocol optimization, one or more of the following dose reduction techniques were utilized for this exam: automated exposure control, adjustment of mA and/or KV based on patient size, or use of iterative reconstructive technique. FINDINGS: Vasculature: Unenhanced images are without evidence of intramural or periaortic hematoma. Extensive calcified plaque is identified. Lung Bases: Basilar scar/atelectasis. Heart size upper normal. Coronary artery calcified plaque. Thoracic aortic calcified plaque. Trace pericardial effusion. Moderate to large hiatal hernia. The abdominal aorta is normal in caliber. Extensive noncalcified plaque. The celiac artery is widely patent as well as the splenic and hepatic artery. No occlusion, stenosis, or aneurysm. The SMA is patent. Mild stenosis is seen proximally due to noncalcified and calcified plaque. No evidence for severe stenosis. The SMA and its branches are patent. The LORETTA is patent. Calcified and noncalcified plaque is seen in the iliac and femoral arteries. No occlusion or severe stenosis. There are rounded areas of high density seen within diverticula in the distal colon likely due to stool-like material. Otherwise, no other areas of high density are seen within the lumen of bowel on the unenhanced images. Arterial phase images are without areas of focal contrast accumulation either in the small bowel or colon. Delayed images are without evidence for accumulation of contrast within the lumen of the small bowel or colon. Abdominal Solid Organs: No hepatic lesions. Multiple at least partially calcified gallstones are seen. No pericholecystic edema. Pancreatic parenchymal volume loss. No peripancreatic edema. Spleen is unremarkable. Adrenal glands appear normal. Right renal nonobstructing calculi are seen. Renal low-attenuation lesions are evident with the largest right peripelvic measuring 4.6 cm. No right ureteral dilatation. There is left perinephric edema and left hydronephrosis due to a collection of several calculi in the left ureter with the largest most distal calculus measures 11 x 8 mm causing left hydronephrosis. Multiple left renal cysts are seen, the largest along the lateral upper pole measuring up to 6 cm. Nonobstructing calculus in the left kidney which appears to be a staghorn calculus and measures up to 18 mm. Delayed images show minimal opacification of the right ureter. Minimal opacification of the left renal collecting system with fluid level. Peritoneal Cavity: Stomach is mildly distended and unremarkable. No small bowel obstruction. No small bowel wall thickening. Duodenal diverticula noted. Small to moderate volume of stool is seen in the colon. Multiple diverticula are seen throughout the colon. No clear evidence for diverticulitis. Appendix is normal. No enlarged retroperitoneal or mesenteric lymph nodes. Pelvic Organs: Urinary bladder is mildly distended and unremarkable prostate calcifications are noted. No bladder calculi. No significant opacification with contrast of the urinary bladder. There is a right ureteral jet identified. Bilateral fatty inguinal hernias. Bones: Degenerative changes lower thoracic and lumbar spine greatest at L5-S1. Facet arthropathy. Degenerative changes of both hip joints. Other: None. IMPRESSION: 1. No focus of extravasation of contrast or contrast accumulation is seen within the lumen of the small bowel or colon to suggest acute bleeding. 2. Abdominal aortic and iliac atherosclerosis. Widely patent mesenteric vasculature. No occlusion or stenosis. 3. Multiple aligned obstructing mid left ureteral calculi with the largest distalmost calculus within the left ureter measuring 11 x 8 mm causing left hydronephrosis. 4. Bilateral nonobstructing renal calculi. 5. Bilateral renal cysts. 6. Colonic diverticulosis. No diverticulitis. No bowel obstruction. No focal bowel wall thickening. 7. Normal appendix. 8. Cholelithiasis. 9. Moderate to large hiatal hernia. RADIA
--- NOTE | 2018-03-23 11:25 | PROVIDER PROGRESS NOTE ---
Assessment/Plan - Problem List (1) GI bleeding Qualifiers: GI bleed type/associated pathology: unspecified gastrointestinal hemorrhage type Qualified Code(s): K92.2 - Gastrointestinal hemorrhage, unspecified Assessment/Plan: The upper endoscopy showed no active bleeding and the CTA of abd/pelvis showed no extravasation of blood to localize the source. Will continue nPO, posibly a bowel prep for colonoscopy, per [facility] [employer] [facility], Dr Francisco Marion. Continue PPI, and avoid ulcerogenic meds, his Naprosyn is on hold. (2) Anemia Qualifiers: Anemia type: iron deficiency Assessment/Plan: Pt had 2 U of PRBCs transfused this a.m., after his Hgb dropped to 6.3. Will follow CBC every 6-12 hours, till bleeding stops and Hgb stabilizes. (3) Syncope due to orthostatic hypotension Assessment/Plan: Pt will be transferred to full Inpt status, given his ongoing symptomatic GI blood loss anemia. Continue iv hydration, while he is NPO. Follow BMP and CBC. (4) Diabetes mellitus Qualifiers: Diabetes mellitus type: type 2 Assessment/Plan: His Metformin is on hold. On ss Insulin and hypoglycemia protocol and fingerstick glu checks for NPO status. (5) Hydronephrosis concurrent with and due to calculi of kidney and ureter Assessment/Plan: Incidental finding on abd/pelvis imaging found today was a large calculus, obstructing flow and he has hydronephrosis. Currently not symptomatic from this. Creat not increasing. Will watch BUN/creat daily. - Current Meds Current Meds: Current Medications Generic Name Dose Route Start Last Admin Trade Name Freq PRN Reason Stop Dose Admin Acetaminophen 650 mg 03/23/18 01:22 03/23/18 01:41 Tylenol PO 650 mg Q4HR PRN Administration Pain or Fever > 38C (100.4F) Potassium Chloride/Dextrose/Sod Cl 1,000 mls @ 125 mls/hr 03/22/18 19:00 03/23/18 02:07 IV 125 mls/hr .Q8H MONTSE Administration Octreotide Acetate 500 mcg/ 100 mls @ 10 mls/hr 03/22/18 20:00 03/23/18 06:08 Sodium Chloride IV 50 mcg/hr .Q10H MONTSE 10 mls/hr Administration 50 MCG/HR Insulin Human Regular 2 - 10 unit 03/22/18 19:00 03/23/18 06:09 Novolin R SUBQ 2 unit Q6HR MONTSE Administration Protocol Pantoprazole Sodium 40 mg 03/22/18 20:00 03/23/18 09:39 Protonix IVP 40 mg BID MONTSE Administration Polyethylene Glycol 17 gm 03/23/18 09:00 03/23/18 09:39 Miralax PO Not Given DAILY MONTSE Sodium Chloride 10 ml 03/22/18 17:52 03/23/18 01:44 Normal Saline Flush 0.9% IVP 10 ml PRN PRN Administration NEEDED PER PROVIDER ORDERS Sodium Chloride 10 ml 03/23/18 01:00 03/23/18 09:39 Normal Saline Flush 0.9% IVP 10 ml 0100,0900,1700 MONTSE Administration - Lab Result Fish Bone Diagrams: 03/23/18 05:21 03/23/18 05:21 - Additional Planning My Orders: My Active Orders 03/23/18 15:00 CBC - COMP BLD CT W/AUTO DIFF [HEME] Timed 03/24/18 05:00 BMP - BASIC METABOLIC PANEL [CHEM] DAILYLAB CBC - COMP BLD CT W/AUTO DIFF [HEME] DAILYLAB 03/25/18 05:00 BMP - BASIC METABOLIC PANEL [CHEM] DAILYLAB CBC - COMP BLD CT W/AUTO DIFF [HEME] DAILYLAB 03/26/18 05:00 BMP - BASIC METABOLIC PANEL [CHEM] DAILYLAB CBC - COMP BLD CT W/AUTO DIFF [HEME] DAILYLAB Subjective - Subjective Patient Reports: Resting Comfortably Nursing Reports: Other (Patient had orthostatic syncope overnight, handled by [employer].) Objective Vital Signs: Vital Signs - 24 hr 03/22/18 03/22/18 03/22/18 14:42 16:33 18:00 Temperature 36 C L Heart Rate 92 74 75 Heart Rate [ Brachial] Respiratory 20 10 L 13 Rate Blood Pressure 125/67 125/56 L 123/54 L Blood Pressure [Left Brachial artery] Blood Pressure [Right Brachial artery] O2 Saturation 100 100 100 03/22/18 03/22/18 03/22/18 19:30 21:42 21:45 Temperature 36.6 C 36.4 C L Heart Rate Heart Rate [ 81 86 84 Brachial] Respiratory 18 Rate Blood Pressure Blood Pressure 113/47 L [Left Brachial artery] Blood Pressure 113/58 L 130/50 L [Right Brachial artery] O2 Saturation 100 95 98 03/22/18 03/22/18 03/22/18 22:15 22:35 22:45 Temperature 36.7 C 36.7 C 36.7 C Heart Rate 76 73 76 Heart Rate [ 76 Brachial] Respiratory 12 12 12 Rate Blood Pressure 101/46 L 98/47 L 109/42 L Blood Pressure 101/46 L [Left Brachial artery] Blood Pressure [Right Brachial artery] O2 Saturation 99 03/22/18 03/23/18 03/23/18 23:46 01:06 01:34 Temperature 36.5 C 36.6 C 36.6 C Heart Rate 79 76 Heart Rate [ 82 Brachial] Respiratory 17 14 15 Rate Blood Pressure 116/55 L 116/53 L Blood Pressure [Left Brachial artery] Blood Pressure 115/42 L [Right Brachial artery] O2 Saturation 99 03/23/18 03/23/18 03/23/18 01:50 01:58 04:23 Temperature 36.6 C 36.7 C 36.5 C Heart Rate 76 76 81 Heart Rate [ Brachial] Respiratory 15 16 16 Rate Blood Pressure 127/60 114/53 L 134/70 H Blood Pressure [Left Brachial artery] Blood Pressure [Right Brachial artery] O2 Saturation 03/23/18 03/23/18 03/23/18 04:25 08:08 08:54 Temperature 36.5 C 36.5 C 36.2 C L Heart Rate 68 Heart Rate [ 31 L 76 Brachial] Respiratory 16 16 18 Rate Blood Pressure 109/64 Blood Pressure 134/70 H [Left Brachial artery] Blood Pressure 108/58 L [Right Brachial artery] O2 Saturation 100 100 99 03/23/18 03/23/18 03/23/18 09:00 09:05 09:15 Temperature 36.2 C L Heart Rate 67 68 70 Heart Rate [ Brachial] Respiratory 18 16 16 Rate Blood Pressure 109/64 111/64 123/63 Blood Pressure [Left Brachial artery] Blood Pressure [Right Brachial artery] O2 Saturation 99 99 100 03/23/18 03/23/18 09:30 10:00 Temperature 36.5 C 36.4 C L Heart Rate Heart Rate [ 72 78 Brachial] Respiratory 16 18 Rate Blood Pressure Blood Pressure 121/60 132/59 H [Left Brachial artery] Blood Pressure [Right Brachial artery] O2 Saturation 98 99 Oxygen O2 Source Nasal cannula I&O (Last 24 Hrs): Intake and Output Totals x24h 03/21/18 03/22/18 03/23/18 23:59 23:59 23:59 Intake Total 1241.3 1681.750 Output Total 425 Balance 1241.3 1256.750 General: Alert, Oriented x3 HEENT: Mucous membr. moist/pink Neck: Supple, No JVD Neuro: Non Focal Cardiovascular: Regular rate, No murmurs Respiratory: No respiratory distress, Breath sounds nml Abdomen: Soft, No tenderness, No hepatospenomegaly Extremities: No edema - Results Results: Laboratory Results WBC 8.3 x10^3/uL (4.8-10.8) 03/23/18 05:21 RBC 2.58 10^6/uL (4.70-6.10) L 03/23/18 05:21 Hgb 8.1 g/dL (14.0-18.0) L 03/23/18 05:21 Hct 24.1 % (42.0-52.0) L 03/23/18 05:21 MCV 93.4 fL (80.0-94.0) 03/23/18 05:21 MCH 31.4 pg (27.0-31.0) H 03/23/18 05:21 MCHC 33.7 g/dL (32.0-36.0) 03/23/18 05:21 RDW 15.7 % (12.0-15.0) H 03/23/18 05:21 Plt Count 204 10^3/uL (130-450) 03/23/18 05:21 MPV 7.5 fL (7.4-11.4) 03/23/18 05:21 Neut # (Auto) 5.7 10^3/uL (1.5-6.6) 03/23/18 05:21 Lymph # (Auto) 1.5 10^3/uL (1.5-3.5) 03/23/18 05:21 [place] # (Auto) 0.8 10^3/uL (0.0-1.0) 03/23/18 05:21 Eos # (Auto) 0.2 10^3/uL (0.0-0.7) 03/23/18 05:21 Baso # (Auto) 0.1 10^3/uL (0.0-0.1) 03/23/18 05:21 Absolute Nucleated RBC 0.00 x10^3/uL 03/23/18 05:21 Nucleated RBC % 0.0 /100WBC 03/23/18 05:21 Sodium 137 mmol/L (135-145) 03/23/18 05:21 Potassium 4.3 mmol/L (3.5-5.0) 03/23/18 05:21 Chloride 104 mmol/L (101-111) 03/23/18 05:21 Carbon Dioxide 24 mmol/L (21-32) 03/23/18 05:21 Anion Gap 9.0 (6-13) 03/23/18 05:21 BUN 33 mg/dL (6-20) H 03/23/18 05:21 Creatinine 1.1 mg/dL (0.6-1.2) 03/23/18 05:21 Estimated GFR (MDRD) 64 (>89) L 03/23/18 05:21 Glucose 203 mg/dL (70-100) H 03/23/18 05:21 POC Whole Bld Glucose 176 mg/dL (70 - 100) H 03/23/18 05:58 Glycated Hemoglobin 6.7 % (4.6-6.2) H 03/22/18 16:10 Estim Average Glucose 146 (70-100) H 03/22/18 16:10 Calcium 7.5 mg/dL (8.5-10.3) L 03/23/18 05:21 Phosphorus 3.3 mg/dL (2.5-4.6) 03/23/18 05:21 Magnesium 1.8 mg/dL (1.7-2.8) 03/22/18 16:10 Iron 28 ug/dL (45-182) L 03/22/18 15:40 TIBC 384 ug/dL (250-450) 03/22/18 15:40 % Saturation 7 % (20-50) L 03/22/18 15:40 Transferrin 274 mg/dL (180-329) 03/22/18 15:40 Total Bilirubin 0.7 mg/dL (0.2-1.0) 03/22/18 16:10 AST 35 IU/L (10-42) 03/22/18 16:10 ALT 20 IU/L (10-60) 03/22/18 16:10 Alkaline Phosphatase 74 IU/L (42-121) 03/22/18 16:10 Total Protein 6.3 g/dL (6.7-8.2) L 03/22/18 16:10 Albumin 2.8 g/dL (3.2-5.5) L 03/23/18 05:21 Globulin 2.9 g/dL (2.1-4.2) 03/22/18 16:10 Albumin/Globulin Ratio 1.2 (1.0-2.2) 03/22/18 16:10 Lipase 29 U/L (22-51) 03/22/18 16:10 Vitamin B12 251 pg/mL (180-914) 03/22/18 15:40 Folate 31.00 ng/mL (5.90 - >24.8) 03/22/18 15:40 TSH 1.30 uIU/mL (0.34-5.60) 03/22/18 15:40 Blood Type O POSITIVE 03/22/18 16:10 Blood Type Recheck O POSITIVE 03/22/18 17:10 Antibody Screen NEGATIVE 03/22/18 16:10 Crossmatch IS Only See Detail 03/22/18 16:10
[2018-03-23 16:26] LABS: BASOPHILS # (AUTO) 0.1 10^3/uL (0.0-0.1); BASOPHILS % (AUTO) 0.5 %; EOSINOPHILS # (AUTO) 0.5 10^3/uL (0.0-0.7); HGB - HEMOGLOBIN 8.3 g/dL (14.0-18.0); LYMPHOCYTES # (AUTO) 1.8 10^3/uL (1.5-3.5); LYMPHOCYTES % (AUTO) 14.9 %; MEAN CORPUSCULAR HEMOGLOBIN 31.1 pg (27.0-31.0); MEAN CORPUSCULAR HGB CONC 33.5 g/dL (32.0-36.0); MEAN CORPUSCULAR VOLUME 92.9 fL (80.0-94.0); MEAN PLATELET VOLUME 7.6 fL (7.4-11.4); NEUTROPHILS # (AUTO) 8.7 10^3/uL (1.5-6.6); NEUTROPHILS % (AUTO) 72.6 %; PLT - PLATELET COUNT 211 10^3/uL (130-450); RED BLOOD COUNT 2.68 10^6/uL (4.70-6.10); RED CELL DISTRIBUTION WIDTH 16.1 % (12.0-15.0)
[2018-03-23] MEDS: SODIUM/POTASSIUM/MAG SULFATES 354 ML PREP KIT PO SCH (18:19)
--- NOTE | 2018-03-23 19:06 | PROVIDER PROGRESS NOTE ---
Assessment/Plan - Problem List (1) GI bleeding Qualifiers: GI bleed type/associated pathology: unspecified gastrointestinal hemorrhage type Qualified Code(s): K92.2 - Gastrointestinal hemorrhage, unspecified Assessment/Plan: Clinically stable at present; etiology unclear; UGI source excluded. ddx now includes angiodysplasia of small or large bowel, diverticular hemorrhage. No evidence of malignancy, IBD, colitis, etc on CT angiogram. Rec: colonoscopy in am PAR conference with patient, who wishes to proceed. - Current Meds Current Meds: Current Medications Generic Name Dose Route Start Last Admin Trade Name Freq PRN Reason Stop Dose Admin Acetaminophen 650 mg 03/23/18 01:22 03/23/18 12:25 Tylenol PO 650 mg Q4HR PRN Administration Pain or Fever > 38C (100.4F) Potassium Chloride/Dextrose/Sod Cl 1,000 mls @ 125 mls/hr 03/22/18 19:00 03/23/18 11:23 IV 125 mls/hr .Q8H M[facility]SE Administration Octreotide Acetate 500 mcg/ 100 mls @ 10 mls/hr 03/22/18 20:00 03/23/18 18:05 Sodium Chloride IV Infused .Q10H MONTSE Infusion 50 MCG/HR Insulin Human Regular 2 - 10 unit 03/22/18 19:00 03/23/18 18:19 Novolin R SUBQ 2 unit Q6HR MONTSE Administration Protocol Sodium Chloride 10 ml 03/22/18 17:52 03/23/18 01:44 Normal Saline Flush 0.9% IVP 10 ml PRN PRN Administration NEEDED PER PROVIDER ORDERS Sodium Chloride 10 ml 03/23/18 01:00 03/23/18 18:19 Normal Saline Flush 0.9% IVP 10 ml 0100,0900,1700 MONTSE Administration Sodium Sulfate/Potass Sulf/Mag Sulf 177 ml 03/23/18 18:00 03/23/18 18:19 Suprep Bowel Prep Kit PO 03/24/18 05:01 177 ml 1800,0500 MONTSE Administration - Lab Result Lab results reviewed: Yes Fish Bone Diagrams: 03/23/18 16:16 03/23/18 05:21 - Additional Planning Condition/Complexity: Stable My Orders: My Active Orders 03/23/18 18:00 Sodium/Potassium/Mag Sulfates [Suprep Bowel Prep Kit] 177 ml PO 1800,0500 02/13/19 07:00 Pantoprazole [Protonix] 40 mg IVP QDAC Plan Discussed with:: Patient, Other (hospitalists) Time Spent: 15-30 minutes Subjective - Subjective Patient Reports: No Complaints (no further bm's since EGD this am) Objective Vital Signs: Vital Signs - 24 hr 03/22/18 03/22/18 03/22/18 19:30 21:42 21:45 Temperature 36.6 C 36.4 C L Heart Rate Heart Rate [ 81 86 84 Brachial] Respiratory 18 Rate Blood Pressure Blood Pressure 113/47 L [Left Brachial artery] Blood Pressure 113/58 L 130/50 L [Right Brachial artery] O2 Saturation 100 95 98 03/22/18 03/22/18 03/22/18 22:15 22:35 22:45 Temperature 36.7 C 36.7 C 36.7 C Heart Rate 76 73 76 Heart Rate [ 76 Brachial] Respiratory 12 12 12 Rate Blood Pressure 101/46 L 98/47 L 109/42 L Blood Pressure 101/46 L [Left Brachial artery] Blood Pressure [Right Brachial artery] O2 Saturation 99 03/22/18 03/23/18 03/23/18 23:46 01:06 01:34 Temperature 36.5 C 36.6 C 36.6 C Heart Rate 79 76 Heart Rate [ 82 Brachial] Respiratory 17 14 15 Rate Blood Pressure 116/55 L 116/53 L Blood Pressure [Left Brachial artery] Blood Pressure 115/42 L [Right Brachial artery] O2 Saturation 99 03/23/18 03/23/18 03/23/18 01:50 01:58 04:23 Temperature 36.6 C 36.7 C 36.5 C Heart Rate 76 76 81 Heart Rate [ Brachial] Respiratory 15 16 16 Rate Blood Pressure 127/60 114/53 L 134/70 H Blood Pressure [Left Brachial artery] Blood Pressure [Right Brachial artery] O2 Saturation 03/23/18 03/23/18 03/23/18 04:25 08:08 08:54 Temperature 36.5 C 36.5 C 36.2 C L Heart Rate 68 Heart Rate [ 31 L 76 Brachial] Respiratory 16 16 18 Rate Blood Pressure 109/64 Blood Pressure 134/70 H [Left Brachial artery] Blood Pressure 108/58 L [Right Brachial artery] O2 Saturation 100 100 99 03/23/18 03/23/1819 09:00 09:05 09:15 Temperature 36.2 C L Heart Rate 67 68 70 Heart Rate [ Brachial] Respiratory 18 16 16 Rate Blood Pressure 109/64 111/64 123/63 Blood Pressure [Left Brachial artery] Blood Pressure [Right Brachial artery] O2 Saturation 99 99 100 03/23/18 03/23/18 03/23/18 09:30 10:00 11:45 Temperature 36.5 C 36.4 C L 36.5 C Heart Rate Heart Rate [ 72 78 72 Brachial] Respiratory 16 18 18 Rate Blood Pressure Blood Pressure 121/60 132/59 H 123/56 L [Left Brachial artery] Blood Pressure [Right Brachial artery] O2 Saturation 98 99 97 03/23/18 16:35 Temperature 36.8 C Heart Rate Heart Rate [ 80 Brachial] Respiratory 18 Rate Blood Pressure Blood Pressure 110/48 L [Left Brachial artery] Blood Pressure [Right Brachial artery] O2 Saturation 94 Oxygen O2 Source Room air I&O (Last 24 Hrs): Intake and Output Totals x24h 03/21/18 03/22/18 03/23/18 23:59 23:59 23:59 Intake Total 1241.3 2781.750 Output Total 425 Balance 1241.3 2356.750 General: Alert, Oriented x3, Cooperative - Results Results: Laboratory Results WBC 12.0 x10^3/uL (4.8-10.8) H 03/23/18 16:16 RBC 2.68 10^6/uL (4.70-6.10) L 03/23/18 16:16 Hgb 8.3 g/dL (14.0-18.0) L 03/23/18 16:16 Hct 24.9 % (42.0-52.0) L 03/23/18 16:16 MCV 92.9 fL (80.0-94.0) 03/23/18 16:16 MCH 31.1 pg (27.0-31.0) H 03/23/18 16:16 MCHC 33.5 g/dL (32.0-36.0) 03/23/18 16:16 RDW 16.1 % (12.0-15.0) H 03/23/18 16:16 Plt Count 211 10^3/uL (130-450) 03/23/18 16:16 MPV 7.6 fL (7.4-11.4) 03/23/18 16:16 Neut # (Auto) 8.7 10^3/uL (1.5-6.6) H 03/23/18 16:16 Lymph # (Auto) 1.8 10^3/uL (1.5-3.5) 03/23/18 16:16 [place] # (Auto) 1.0 10^3/uL (0.0-1.0) 03/23/18 16:16 Eos # (Auto) 0.5 10^3/uL (0.0-0.7) 03/23/18 16:16 Baso # (Auto) 0.1 10^3/uL (0.0-0.1) 03/23/18 16:16 Absolute Nucleated RBC 0.00 x10^3/uL 03/23/18 16:16 Nucleated RBC % 0.0 /100WBC 03/23/18 16:16 Sodium 137 mmol/L (135-145) 03/23/18 05:21 Potassium 4.3 mmol/L (3.5-5.0) 03/23/18 05:21 Chloride 104 mmol/L (101-111) 03/23/18 05:21 Carbon Dioxide 24 mmol/L (21-32) 03/23/18 05:21 Anion Gap 9.0 (6-13) 03/23/18 05:21 BUN 33 mg/dL (6-20) H 03/23/18 05:21 Creatinine 1.1 mg/dL (0.6-1.2) 03/23/18 05:21 Estimated GFR (MDRD) 64 (>89) L 03/23/18 05:21 Glucose 203 mg/dL (70-100) H 03/23/18 05:21 POC Whole Bld Glucose 176 mg/dL (70 - 100) H 03/23/18 16:31 Glycated Hemoglobin 6.7 % (4.6-6.2) H 03/22/18 16:10 Estim Average Glucose 146 (70-100) H 03/22/18 16:10 Calcium 7.5 mg/dL (8.5-10.3) L 03/23/18 05:21 Phosphorus 3.3 mg/dL (2.5-4.6) 03/23/18 05:21 Magnesium 1.8 mg/dL (1.7-2.8) 03/22/18 16:10 Iron 28 ug/dL (45-182) L 03/22/18 15:40 TIBC 384 ug/dL (250-450) 03/22/18 15:40 % Saturation 7 % (20-50) L 03/22/18 15:40 Transferrin 274 mg/dL (180-329) 03/22/18 15:40 Total Bilirubin 0.7 mg/dL (0.2-1.0) 03/22/18 16:10 AST 35 IU/L (10-42) 03/22/18 16:10 ALT 20 IU/L (10-60) 03/22/18 16:10 Alkaline Phosphatase 74 IU/L (42-121) 03/22/18 16:10 Total Protein 6.3 g/dL (6.7-8.2) L 03/22/18 16:10 Albumin 2.8 g/dL (3.2-5.5) L 03/23/18 05:21 Globulin 2.9 g/dL (2.1-4.2) 03/22/18 16:10 Albumin/Globulin Ratio 1.2 (1.0-2.2) 03/22/18 16:10 Lipase 29 U/L (22-51) 03/22/18 16:10 Vitamin B12 251 pg/mL (180-914) 03/22/18 15:40 Folate 31.00 ng/mL (5.90 - >24.8) 03/22/18 15:40 TSH 1.30 uIU/mL (0.34-5.60) 03/22/18 15:40 Blood Type O POSITIVE 03/22/18 16:10 Blood Type Recheck O POSITIVE 03/22/18 17:10 Antibody Screen NEGATIVE 03/22/18 16:10 Crossmatch IS Only See Detail 03/22/18 16:10 - Procedures Procedures: EGD this am: no UGI source of bleeding identified. ABX Reporting Has patient been on IV antibiotics over the past 48 hours?: No
[2018-03-24] MEDS: INSULIN REGULAR HUMAN 100 UNIT/1 ML 10 ML MDV SUBQ SCH ×3 (00:41→12:23)
[2018-03-24] MEDS: SODIUM CHLORIDE FLUSH 0.9% 10 ML SYRINGE IVP SCH ×2 (03:52→08:05)
[2018-03-24] MEDS: D5NS W/20 MEQ KCL 1,000 ML IV SCH (03:52)
[2018-03-24 05:16] LABS: BASOPHILS # (AUTO) 0.1 10^3/uL (0.0-0.1); BASOPHILS % (AUTO) 0.8 %; EOSINOPHILS # (AUTO) 0.5 10^3/uL (0.0-0.7); EOSINOPHILS % (AUTO) 5.9 %; HGB - HEMOGLOBIN 7.7 g/dL (14.0-18.0); LYMPHOCYTES # (AUTO) 2.2 10^3/uL (1.5-3.5); LYMPHOCYTES % (AUTO) 25.4 %; MEAN CORPUSCULAR HEMOGLOBIN 31.3 pg (27.0-31.0); MEAN CORPUSCULAR VOLUME 94.8 fL (80.0-94.0); MEAN PLATELET VOLUME 7.5 fL (7.4-11.4); MONOCYTES # (AUTO) 0.7 10^3/uL (0.0-1.0); MONOCYTES % (AUTO) 8.5 %; NEUTROPHILS # (AUTO) 5.2 10^3/uL (1.5-6.6); NEUTROPHILS % (AUTO) 59.4 %; PLT - PLATELET COUNT 210 10^3/uL (130-450); RED BLOOD COUNT 2.47 10^6/uL (4.70-6.10); WHITE BLOOD COUNT 8.8 x10^3/uL (4.8-10.8)
[2018-03-24 05:29] LABS: CALCIUM 7.4 mg/dL (8.5-10.3); CREATININE 1.1 mg/dL (0.6-1.2)
[2018-03-24] MEDS: SODIUM/POTASSIUM/MAG SULFATES 354 ML PREP KIT PO SCH (05:38)
[2018-03-24] MEDS: SODIUM CHLORIDE FLUSH 0.9% 10 ML SYRINGE IVP PRN (06:41)
[2018-03-24] MEDS: OCTREOTIDE 500 MCG in SODIUM CHLORIDE 0.9% 100ML 99 ML IV SCH (06:42)
[2018-03-24] MEDS ORDERED: PANTOPRAZOLE 40 MG VIAL IVP SCH (07:00)
--- NOTE | 2018-03-24 07:26 | PROVIDER PROGRESS NOTE ---
Assessment/Plan - Problem List (1) GI bleeding Qualifiers: GI bleed type/associated pathology: unspecified gastrointestinal hemorrhage type Qualified Code(s): K92.2 - Gastrointestinal hemorrhage, unspecified Assessment/Plan: appears to be resolving; hemodynamically stable, minimal bleeding overnight with bowel prep; plan colonoscopy this am. - Current Meds Current Meds: Current Medications Generic Name Dose Route Start Last Admin Trade Name Freq PRN Reason Stop Dose Admin Acetaminophen 650 mg 03/23/18 01:22 03/23/18 12:25 Tylenol PO 650 mg Q4HR PRN Administration Pain or Fever > 38C (100.4F) Potassium Chloride/Dextrose/Sod Cl 1,000 mls @ 125 mls/hr 03/22/18 19:00 03/24/18 03:52 IV 125 mls/hr .Q8H MONTSE Administration Octreotide Acetate 500 mcg/ 100 mls @ 10 mls/hr 03/22/18 20:00 03/24/18 06:42 Sodium Chloride IV 50 mcg/hr .Q10H MONTSE 10 mls/hr Administration 50 MCG/HR Insulin Human Regular 2 - 10 unit 03/22/18 19:00 03/24/18 06:41 Novolin R SUBQ 2 unit Q6HR MONTSE Administration Protocol Pantoprazole Sodium 40 mg 03/24/18 07:00 03/24/18 06:41 Protonix IVP 40 mg QDAC MONTSE Administration Sodium Chloride 10 ml 03/22/18 17:52 03/24/18 06:41 Normal Saline Flush 0.9% IVP 10 ml PRN PRN Administration NEEDED PER PROVIDER ORDERS Sodium Chloride 10 ml 03/23/18 01:00 03/24/18 03:52 Normal Saline Flush 0.9% IVP Not Given 0100,0900,1700 MONTSE - Lab Result Lab results reviewed: Yes Fish Bone Diagrams: 03/24/18 04:50 03/24/18 04:50 Other Lab Results: h/h stable without need for additional blood products since EGD yesterday. - Diagnostic Imaging Results Diagnostic Imaging Results: Final report reviewed, Discussed with radiologist, Read independently Diagnostic Imaging Results Comments: CT angiogram neg for source of bleeding; tics in colon noted. - Additional Planning Condition/Complexity: Stable My Orders: My Active Orders 03/24/18 07:00 Pantoprazole [Protonix] 40 mg IVP QDAC Plan Discussed with:: Patient Time Spent: 15-30 minutes Subjective - Subjective Patient Reports: Resting Comfortably, No Complaints (brown stools last night with bowel prep; mild blood tinged clear liquid stool this am.) Objective Vital Signs: Vital Signs - 24 hr 03/23/18 03/23/18 03/23/18 08:08 08:54 09:00 Temperature 36.5 C 36.2 C L Heart Rate 68 67 Heart Rate [ 76 Brachial] Respiratory 16 18 18 Rate Blood Pressure 109/64 109/64 Blood Pressure [Left Brachial artery] Blood Pressure 108/58 L [Right Brachial artery] O2 Saturation 100 99 99 03/23/18 03/23/18 03/23/18 09:05 09:15 09:30 Temperature 36.2 C L 36.5 C Heart Rate 68 70 Heart Rate [ 72 Brachial] Respiratory 16 16 16 Rate Blood Pressure 111/64 123/63 Blood Pressure 121/60 [Left Brachial artery] Blood Pressure [Right Brachial artery] O2 Saturation 99 100 98 03/23/18 03/23/18 03/23/18 10:00 11:45 16:35 Temperature 36.4 C L 36.5 C 36.8 C Heart Rate Heart Rate [ 78 72 80 Brachial] Respiratory 18 18 18 Rate Blood Pressure Blood Pressure 132/59 H 123/56 L 110/48 L [Left Brachial artery] Blood Pressure [Right Brachial artery] O2 Saturation 99 97 94 03/23/18 03/24/18 21:00 01:00 Temperature 36.8 C 36.9 C Heart Rate Heart Rate [ 84 86 Brachial] Respiratory 18 18 Rate Blood Pressure Blood Pressure 131/64 H 119/47 L [Left Brachial artery] Blood Pressure [Right Brachial artery] O2 Saturation 99 96 Oxygen O2 Source Room air I&O (Last 24 Hrs): Intake and Output Totals x24h 03/22/18 03/23/18 03/24/18 23:59 23:59 23:59 Intake Total 1241.3 5281.750 2050 Output Total 425 200 Balance 1241.3 4856.750 1850 General: Alert, Oriented x3, Cooperative - Results Results: Laboratory Results WBC 8.8 x10^3/uL (4.8-10.8) 03/24/18 04:50 RBC 2.47 10^6/uL (4.70-6.10) L 03/24/18 04:50 Hgb 7.7 g/dL (14.0-18.0) L 03/24/18 04:50 Hct 23.4 % (42.0-52.0) L 03/24/18 04:50 MCV 94.8 fL (80.0-94.0) H 03/24/18 04:50 MCH 31.3 pg (27.0-31.0) H 03/24/18 04:50 MCHC 33.0 g/dL (32.0-36.0) 03/24/18 04:50 RDW 16.0 % (12.0-15.0) H 03/24/18 04:50 Plt Count 210 10^3/uL (130-450) 03/24/18 04:50 MPV 7.5 fL (7.4-11.4) 03/24/18 04:50 Neut # (Auto) 5.2 10^3/uL (1.5-6.6) 03/24/18 04:50 Lymph # (Auto) 2.2 10^3/uL (1.5-3.5) 03/24/18 04:50 [place] # (Auto) 0.7 10^3/uL (0.0-1.0) 03/24/18 04:50 Eos # (Auto) 0.5 10^3/uL (0.0-0.7) 03/24/18 04:50 Baso # (Auto) 0.1 10^3/uL (0.0-0.1) 03/24/18 04:50 Absolute Nucleated RBC 0.00 x10^3/uL 03/24/18 04:50 Nucleated RBC % 0.0 /100WBC 03/24/18 04:50 Sodium 140 mmol/L (135-145) 03/24/18 04:50 Potassium 3.8 mmol/L (3.5-5.0) 03/24/18 04:50 Chloride 108 mmol/L (101-111) 03/24/18 04:50 Carbon Dioxide 25 mmol/L (21-32) 03/24/18 04:50 Anion Gap 7.0 (6-13) 03/24/18 04:50 BUN 21 mg/dL (6-20) H 03/24/18 04:50 Creatinine 1.1 mg/dL (0.6-1.2) 03/24/18 04:50 Estimated GFR (MDRD) 64 (>89) L 03/24/18 04:50 Glucose 172 mg/dL (70-100) H 03/24/18 04:50 POC Whole Bld Glucose 146 mg/dL (70 - 100) H 03/24/18 06:22 Glycated Hemoglobin 6.7 % (4.6-6.2) H 03/22/18 16:10 Estim Average Glucose 146 (70-100) H 03/22/18 16:10 Calcium 7.4 mg/dL (8.5-10.3) L 03/24/18 04:50 Phosphorus 3.3 mg/dL (2.5-4.6) 03/23/18 05:21 Magnesium 1.8 mg/dL (1.7-2.8) 03/22/18 16:10 Iron 28 ug/dL (45-182) L 03/22/18 15:40 TIBC 384 ug/dL (250-450) 03/22/18 15:40 % Saturation 7 % (20-50) L 03/22/18 15:40 Transferrin 274 mg/dL (180-329) 03/22/18 15:40 Total Bilirubin 0.7 mg/dL (0.2-1.0) 03/22/18 16:10 AST 35 IU/L (10-42) 03/22/18 16:10 ALT 20 IU/L (10-60) 03/22/18 16:10 Alkaline Phosphatase 74 IU/L (42-121) 03/22/18 16:10 Total Protein 6.3 g/dL (6.7-8.2) L 03/22/18 16:10 Albumin 2.8 g/dL (3.2-5.5) L 03/23/18 05:21 Globulin 2.9 g/dL (2.1-4.2) 03/22/18 16:10 Albumin/Globulin Ratio 1.2 (1.0-2.2) 03/22/18 16:10 Lipase 29 U/L (22-51) 03/22/18 16:10 Vitamin B12 251 pg/mL (180-914) 03/22/18 15:40 Folate 31.00 ng/mL (5.90 - >24.8) 03/22/18 15:40 TSH 1.30 uIU/mL (0.34-5.60) 03/22/18 15:40 Blood Type O POSITIVE 03/22/18 16:10 Blood Type Recheck O POSITIVE 03/22/18 17:10 Antibody Screen NEGATIVE 03/22/18 16:10 Crossmatch IS Only See Detail 03/22/18 16:10 ABX Reporting Has patient been on IV antibiotics over the past 48 hours?: No
[2018-03-24] MEDS ORDERED: LACTATED RINGERS 1,000 ML IV ONE (07:37)
[2018-03-24] MEDS ORDERED: fentaNYL 250 MCG/5 ML VIAL IVP ONE (07:37)
[2018-03-24] MEDS ORDERED: MIDAZOLAM 2 MG/2 ML VIAL IVP ONE (07:37)
--- NOTE | 2018-03-24 08:49 | PROCEDURE REPORT ---
Hospitalist Procedure Note - Procedure Note Procedure Note: 03/24/18: Colonoscopy findings: 1. Stage 2 coccygeal decubitus ulcer 2. mild rectal mucosal prolapse 3. large internal hemorrhoids, nonbleeding 4. severe escudero diverticulosis 5. no active gi bleeding identified.
[2018-03-24] MEDS ORDERED: MIN OIL/DIMETHICON/COCONUT OIL 92 GM TUBE TOP PRN (11:33)
[2018-03-24 11:53] LABS: BASOPHILS # (AUTO) 0.1 10^3/uL (0.0-0.1); BASOPHILS % (AUTO) 0.7 %; EOSINOPHILS # (AUTO) 0.5 10^3/uL (0.0-0.7); EOSINOPHILS % (AUTO) 5.3 %; HGB - HEMOGLOBIN 8.8 g/dL (14.0-18.0); MEAN CORPUSCULAR HEMOGLOBIN 31.9 pg (27.0-31.0); MEAN CORPUSCULAR HGB CONC 34.2 g/dL (32.0-36.0); MEAN CORPUSCULAR VOLUME 93.3 fL (80.0-94.0); MEAN PLATELET VOLUME 7.4 fL (7.4-11.4); MONOCYTES # (AUTO) 0.8 10^3/uL (0.0-1.0); MONOCYTES % (AUTO) 7.8 %; NEUTROPHILS # (AUTO) 6.7 10^3/uL (1.5-6.6); NEUTROPHILS % (AUTO) 66.2 %; PLT - PLATELET COUNT 244 10^3/uL (130-450); RED BLOOD COUNT 2.76 10^6/uL (4.70-6.10); RED CELL DISTRIBUTION WIDTH 15.9 % (12.0-15.0); WHITE BLOOD COUNT 10.1 x10^3/uL (4.8-10.8)
--- NOTE | 2018-03-24 14:36 | Discharge Plan ---
Discharge Plan Disposition: 01 Home, Self Care Condition: Stable Prescriptions: Ferrous Gluconate [Fergon] 270 mg PO DAILY #30 tablet Diet: Regular Activity Restrictions: Activity as Tolerated Shower Restrictions: No Driving Restrictions: Yes (No driving until cleared to do so by your PCP) Instruction Topics: Bleeding Gastrointestinal Additional Instructions or Follow Up instructions: You were admitted for evaluation and management of a significant intestinal bleed. You were severely anemic which caused you to faint. The scope evaluations showed no active bleeding, therefore the source was not found. Resume your pre-hospital medications EXCEPT STOP using the Naprosyn (which can cause bleeding in the GI tract). You are being discharged with new Iron replacement pills. See your PCP for blood tests regarding the anemia and Iron pill refills. You had endoscopy done by the surgeon, and you should also see Dr Francisco Marion in office for follow-up, as directed. One of the imaging tests found that you have a large stone in your urinary system. You will need a referral to a Urologist for furthet management of this. You also have an open wound on your lower back (coccyx area) which was evaluated and managed with the Wound Nurse. You should follow her directions for care of that wound. [place] be [place] [facility] [place] [facility] [facility] [place]; make an appointment for follow-up. If you have new or worsening symptoms, come to the ER. Follow-Up Care: [facility] [place] [facility] [place] No Smoking: If you smoke, Please STOP! Call for help. Follow-up with: Steven Pinedo MD [Primary Care Provider] -
[2018-03-24 15:36] VITALS: BP 130/65
[2018-03-25] MEDS ORDERED: FERROUS GLUCONATE 324 MG TABLET PO SCH (12:00)
--- NOTE | 2018-03-28 03:07 | DISCHARGE SUMMARY ---
Physician: Nohemy Carpio MD DATE OF ADMISSION: 03/23/2018 DATE OF DISCHARGE: 03/24/2018 HISTORY OF PRESENT ILLNESS: This is an 82-year-old white male who has a history of type 2 diabetes, BPH, presented to the emergency room after he felt extremely weak while shoveling snow and had continued weakness for several days. He also admitted to 3 days of dark maroon stools without abdominal pain, nausea, vomiting or hematemesis. He was examined in the emergency room and found to have a heme-positive stool. Hemoglobin was 6.4. He was admitted for evaluation and management of GI blood loss anemia. HOSPITAL COURSE AND DISCHARGE DIAGNOSES 1. Gastrointestinal hemorrhage, unspecified. Patient was kept n.p.o. and underwent an EGD that was within normal limits. He then had bowel preparation and underwent colonoscopy, which showed many diverticuli, none were bleeding and there was also a very large hemorrhoid that was also not bleeding. The presumed source could be the diverticuli, however, there was never active bleeding seen. He was sent home on iron replacement therapy and told to stop Naprosyn, which he was using for arthritis pain relief. He was told to see his primary care physician in a week for followup CBC, followup exam, and future refills of iron tablets if needed. 2. Iron deficiency anemia. Hemoglobin was 6.4, and he required 2 units of red blood cells. Hemoglobin improved to 8.3. His iron panel showed low iron of 28, TIBC of 384, and low saturation of 7%. He was discharged home with iron replacement. 3. Syncope due to orthostatic hypotension. On the first night of admission, the patient walked to the bathroom and got dizzy and had a syncopal episode without any trauma. He was also incontinent of maroon stool at this point. He was stabilized. Blood pressure when he returned to bed was 130/90. Pulse was controlled. He was then ordered not to be out of bed on his own. Bedside commode was ordered. He was also advised not to drive, at discharge, but to see his primary care physician for clearance to resume driving. 4. Type 2 diabetes. Patient was on a carbohydrate-controlled diet after his various scopes were completed as well as sliding scale insulin coverage. 5. Hydronephrosis. Abdomen and pelvis CTA was done to look for extravasation of dye into the abdominal space when there was suspected active bleeding. There was no focus of extravasation or contrast seen in any area to suggest acute bleeding. 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 He was told he will need referral to a Urologist for further management of his kidney and ureteral stones. 6. Sacral decubitus ulcer. Patient was noted to have a stage II decubitus ulcer when he had the close evaluation during colonoscopy. The patient admitted that he had been laying in bed for 3 days because of his extreme weakness. He was seen by a wound nurse while here, who advised dressing management and gave him an appointment to the [facility] [place] wound clinic here in several days. LABORATORY DATA AND IMAGING: Reviewed and summarized above. ALLERGIES: SULFA. MEDICATIONS AT THE TIME OF DISCHARGE 1. Vitamin D3 2000 units daily. 2. Cod liver oil daily. 3. Finasteride 5 mg daily. 4. Glucosamine sulfate 1000 mg b.i.d. 5. Metformin 1500 mg p.o., unknown frequency. 6. Multivitamin daily. 7. Omeprazole 20 mg daily. 8. Primidone 75 mg b.i.d. 9. Crestor 5 mg daily. 10. Benadryl p.r.n. 11. Ferrous gluconate 270 mg daily. 12. Naprosyn was ordered to be discontinued. CONDITION AT DISCHARGE: Stable. PHYSICAL EXAMINATION VITAL SIGNS: Blood pressure 130/60 with no orthostatic drop. Heart rate in the 60s and 70s, in sinus rhythm. Afebrile. Room air saturation 100%. HEENT: Unremarkable. NECK: Without JVD or carotid bruits. CHEST: Clear. HEART: Normal heart sounds. ABDOMEN: Soft. Positive bowel sounds. Nontender. No organomegaly. EXTREMITIES: No edema. NEUROLOGIC: Grossly intact. FOLLOWUP: He was advised to see his PCP within 1 week for followup of this hospitalization, a CBC test, clearance for driving. He is advised to see the surgeon who performed the endoscopies in approximately a week for followup;and the surgeon's instructions were given to patient. He was advised to keep his new wound clinic appointment. CODE STATUS: FULL CODE. Time required to complete this entire discharge, chart review, patient education, prescription orders: 35 minutes. cc: Steven Pinedo MD TD: 03/27/2018 19:28 GUSTAVO
== END 2018-03-24 15:55 | disposition home or self-care (01) | DRG 378 ==
LOC: ED 14:33 → OBS 17:52 → OBSVTOIN 03-23 09:26 → MS2 03-23 09:27
PROVIDERS: ADMIT Family Medicine; ATTEND Internal Medicine
PROC: 0DB38ZX Excision of Lower Esophagus, Via Natural or Artificial Opening Endoscopic, Diagnostic (ICD-10-PCS; 2018-03-23)
PROC: 30233N1 Transfusion of Nonautologous Red Blood Cells into Peripheral Vein, Percutaneous Approach (ICD-10-PCS; 2018-03-23)
PROC: 0DB38ZZ Excision of Lower Esophagus, Via Natural or Artificial Opening Endoscopic (ICD-10-PCS; principal; 2018-03-23 08:00)
PROC: 0DJD8ZZ Inspection of Lower Intestinal Tract, Via Natural or Artificial Opening Endoscopic (ICD-10-PCS; 2018-03-24)
DX: K92.2 Gastrointestinal hemorrhage, unspecified (principal); D64.9 Anemia, unspecified; K57.31 Diverticulosis of large intestine without perforation or abscess with bleeding; N13.2 Hydronephrosis with renal and ureteral calculous obstruction; D62 Acute posthemorrhagic anemia; K22.711 Barrett's esophagus with high grade dysplasia; K21.9 Gastro-esophageal reflux disease without esophagitis; M54.9 Dorsalgia, unspecified; G89.29 Other chronic pain; I95.1 Orthostatic hypotension; E11.9 Type 2 diabetes mellitus without complications; L89.152 Pressure ulcer of sacral region, stage 2; N40.0 Benign prostatic hyperplasia without lower urinary tract symptoms; E78.5 Hyperlipidemia, unspecified; G25.0 Essential tremor; K44.9 Diaphragmatic hernia without obstruction or gangrene; K64.8 Other hemorrhoids; K62.3 Rectal prolapse; Z79.84 Long term (current) use of oral hypoglycemic drugs; Z79.1 Long term (current) use of non-steroidal anti-inflammatories (NSAID)
CPT/HCPCS: 36415; 36430; 74174; 80048; 80053; 80069; 82607; 82746; 83036; 83540; 83690; 83735; 84443; 84466; 85014; 85018; 85025; 86850; 86900; 86901; 86920; 96361; 96365; 96366; 96367; 96375; 96376; 99283; 99284

== ENCOUNTER 2018-07-15 14:38 | Outpatient (CLI) | payer MEDICARE, OTHER ==
[2018-07-15 15:14] LABS: BASOPHILS # (AUTO) 0.2 10^3/uL (0.0-0.1); BASOPHILS % (AUTO) 1.9 %; EOSINOPHILS # (AUTO) 0.4 10^3/uL (0.0-0.7); EOSINOPHILS % (AUTO) 4.5 %; LYMPHOCYTES % (AUTO) 24.8 %; MEAN CORPUSCULAR HEMOGLOBIN 29.7 pg (27.0-31.0); MEAN CORPUSCULAR HGB CONC 32.6 g/dL (32.0-36.0); MEAN PLATELET VOLUME 7.6 fL (7.4-11.4); MONOCYTES # (AUTO) 0.6 10^3/uL (0.0-1.0); NEUTROPHILS % (AUTO) 61.8 %; PLT - PLATELET COUNT 305 10^3/uL (130-450); RED BLOOD COUNT 4.39 10^6/uL (4.70-6.10); RED CELL DISTRIBUTION WIDTH 14.9 % (12.0-15.0); WHITE BLOOD COUNT 8.1 x10^3/uL (4.8-10.8)
[2018-07-15 15:27] LABS: ALBUMIN 4.2 g/dL (3.2-5.5); ALBUMIN/GLOBULIN RATIO 1.2 (1.0-2.2); BILIRUBIN,TOTAL 0.6 mg/dL (0.2-1.0); CALCIUM 9.4 mg/dL (8.5-10.3); CREATININE 1.4 mg/dL (0.6-1.2); TOTAL PROTEIN 7.6 g/dL (6.7-8.2)
== END 2018-07-15 14:39 | disposition home or self-care (01) ==
LOC: LAB 14:38
PROVIDERS: ATTEND Internal Medicine Gastroenterology
DX: N13.30 Unspecified hydronephrosis (principal); K22.711 Barrett's esophagus with high grade dysplasia; D50.9 Iron deficiency anemia, unspecified
CPT/HCPCS: 36415; 80053; 85025

== ENCOUNTER 2018-07-20 07:23 | Day surgery (SDC) | payer MEDICARE, OTHER ==
[~2018-07-20 07:23] MED LIST: LACTATED RINGERS 1,000 ML IV ONE
[2018-07-20] MEDS ORDERED: LIDO GARGLE 30 ML BOTTLE ONE (08:02)
[2018-07-20] MEDS ORDERED: LIDO GARGLE 30 ML BOTTLE PO ONE (08:57)
[2018-07-20] MEDS ORDERED: MIDAZOLAM 2 MG/2 ML VIAL IVP ONE (09:00)
[2018-07-20] MEDS ORDERED: fentaNYL 250 MCG/5 ML VIAL IVP ONE (09:00)
[2018-07-20 10:21] VITALS: BP 105/54
== END 2018-07-20 07:24 | disposition home or self-care (01) ==
LOC: SDS 07:23
PROVIDERS: ATTEND Internal Medicine Gastroenterology
PROC: 0DB78ZZ Excision of Stomach, Pylorus, Via Natural or Artificial Opening Endoscopic (ICD-10-PCS; 2018-07-20)
PROC: 0DB58ZX Excision of Esophagus, Via Natural or Artificial Opening Endoscopic, Diagnostic (ICD-10-PCS; principal; 2018-07-20 08:30)
DX: K22.711 Barrett's esophagus with high grade dysplasia (principal); D50.9 Iron deficiency anemia, unspecified; K31.7 Polyp of stomach and duodenum; K44.9 Diaphragmatic hernia without obstruction or gangrene; K22.8 Other specified diseases of esophagus; E11.9 Type 2 diabetes mellitus without complications; N13.30 Unspecified hydronephrosis
CPT/HCPCS: 43239; 43251; A9270; J3010; J7120

== ENCOUNTER 2019-07-20 18:42 | Outpatient (CLI) | payer MEDICARE, OTHER | END 2019-07-20 18:43 | disposition critical access hospital (66) | LOC: EMS 18:42 | PROVIDERS: ATTEND Surgery | DX: S01.511A Laceration without foreign body of lip, initial encounter (principal); W01.0XXA Fall on same level from slipping, tripping and stumbling without subsequent striking against object, initial encounter; Y93.01 Activity, walking, marching and hiking; Y92.480 Sidewalk as the place of occurrence of the external cause | CPT/HCPCS: A0425; A0429 ==

== ENCOUNTER 2019-07-20 18:56 | Emergency (ER) | payer MEDICARE, OTHER ==
--- NOTE | 2019-07-20 19:47 | ED Physician Documentation ---
PD HPI Fall - Stated complaint Stated Complaint: GLF X2/ LIP LAC - Chief complaint Chief Complaint: Trauma Hd/Nk - History obtained from History obtained from: Patient - History of Present Illness Mechanism of injury: Tripped, Lost balance (The patient denies lightheadedness nor feeling of near syncope or syncope. He states he was walking a usual route that he walks uphill and then returns downhill. As he turned from going uphill to start downhill he states his feet felt family and his leg gave out and he fell forward onto his face. He denied any ongoing feeling of weakness of his legs and did not have any weakness of his arms. He states he has had problems with his left knee in the past with cartilage and it does feel like it gives out at times.) Fall distance: Standing position Where injury occurred: Street (He states he lose at assisted living at [facility] and takes a walk regularly and a established route that he is done before going uphill and then turns around and comes down the hill. It was a familiar area. He states he felt off balance as he started going downhill in his legs fumbled and his left knee gave out.) Timing - onset: Today (just METALLURGIST PROCESS) Injury(ies) location: Face, Chest (sternal area is hurting). No: Neck, Abdomen Associated symptoms: Other (facial abrasions and upper lip laceration). No: LOC, AMS, Seizures, Weakness, Paresthesias Contributing factors: No: Anticoagulated, Intoxicated Similar symptoms before: No diagnosis (has had left knee give out and not support him at times in the past.) Recently seen: Not recently seen Review of Systems Constitutional: denies: Fever, Chills Nose: denies: Rhinorrhea / runny nose, Congestion Throat: denies: Oral lesions / sores, Sore throat Cardiac: denies: Chest pain / pressure Respiratory: denies: Cough GI: denies: Nausea, Vomiting Skin: reports: Abrasion (s), Laceration (s) (left upper lip) Musculoskeletal: denies: Neck pain, Back pain Neurologic: reports: Headache (mild frontal area since fall). denies: Focal weakness, Numbness, Near syncope, Syncope, Altered mental status PD PAST MEDICAL HISTORY - Past Medical History Past Medical History: Yes Cardiovascular: None Respiratory: None Neuro: None, Other Endocrine/Autoimmune: Type 2 diabetes GI: GERD : Benign prostate hypertrophy HEENT: Chronic vision loss, Chronic hearing loss Psych: None Musculoskeletal: Chronic back pain Derm: None - Past Surgical History Past Surgical History: Yes General: Colonoscopy, EGD Neuro: Craniotomy - Present Medications Home Medications: Ambulatory Orders Medication Instructions Recorded Confirmed Cholecalciferol (Vitamin D3) 2,000 unit PO DAILY 03/22/18 07/20/18 [Vitamin D3] Cod Liver Oil 1 each PO DAILY 03/22/18 07/20/18 Finasteride 5 mg PO DAILY 03/22/18 07/20/18 Multivitamin [Multivitamins] 1 each PO DAILY 03/22/18 07/20/18 Omeprazole 20 mg PO DAILY 03/22/18 07/20/18 Primidone 75 mg PO BID 03/22/18 07/20/18 Glucosamine Sulfate Dipot Chlr 1,000 mg PO BID 03/23/18 07/20/18 [Glucosamine Sulfate] Rosuvastatin Calcium 5 mg PO DAILY 03/23/18 07/20/18 metFORMIN [Glucophage] 1,500 mg PO TIDWM 03/23/18 07/20/18 Ferrous Gluconate [Fergon] 270 mg PO DAILY #30 tablet 03/24/18 07/20/18 diphenhydrAMINE [Benadryl] 25 mg PO BID PRN #0 03/24/18 07/20/18 - Allergies Allergies/Adverse Reactions: Allergies Allergy/AdvReac Type Severity Reaction Status Date / Time Sulfa (Sulfonamide AdvReac Rash Verified 03/22/18 14:44 Antibiotics) - Social History Does the pt smoke?: No Smoking Status: Never smoker Does the pt drink ETOH?: No Does the pt have substance abuse?: No - Immunizations Immunizations are current?: Yes - POLST Patient has POLST: No PD ED PE NORMAL - Vitals Vital signs reviewed: Yes - General General: Alert and oriented X 3, Well developed/nourished - HEENT HEENT: PERRL, EOMI, Moist mucous membranes, Pharynx benign (no noted sores/swelling), Other (There are abrasions noted on the left cheek and the forehead. There is a 1-1/2 cm laceration in the left upper lip outer aspect not crossing the vermilion border. There is a inner lip laceration in that same area. No dental fractures noted.) - Neck Neck: Supple, no meningeal sign, No bony TTP, No adenopathy (nor masses felt) - Cardiac Cardiac: RRR, No murmur - Respiratory Respiratory: Clear bilaterally, Other (There is tenderness along the midsternal area without any crepitance or no obvious deformity.) - Abdomen Abdomen: Soft, Non tender - Back Back: No CVA TTP - Derm Derm: Normal color, Warm and dry - Extremities Extremities: No tenderness to palpate, Normal ROM s pain, No edema, No calf tenderness / cord - Neuro Neuro: Alert and oriented X 3, No motor deficit, No sensory deficit, Normal speech Eye Opening: Spontaneous Motor: Obeys Commands Verbal: Oriented GCS Score: 15 Results - Vitals Vitals: Vital Signs - 24 hr 07/20/19 07/20/19 07/20/19 19:02 19:20 21:24 Temperature 36.6 C Heart Rate 86 76 65 Respiratory 16 16 16 Rate Blood Pressure 160/81 H 160/69 H 135/69 H O2 Saturation 94 95 96 07/20/19 23:34 Temperature Heart Rate 65 Respiratory 13 Rate Blood Pressure 156/68 H O2 Saturation 96 Oxygen O2 Source Room air - Labs Labs: Laboratory Tests 07/20/19 07/20/19 07/20/19 19:42 19:42 19:42 WBC 9.2 RBC 4.31 L Hgb 14.4 Hct 42.8 MCV 99.3 H MCH 33.4 H MCHC 33.6 RDW 12.6 Plt Count 262 MPV 9.0 Neut # (Auto) 6.0 Lymph # (Auto) 2.1 Cross # (Auto) 0.6 Eos # (Auto) 0.3 Baso # (Auto) 0.1 Absolute Nucleated RBC 0.00 Nucleated RBC % 0.0 Sodium 139 Potassium 3.8 Chloride 101 Carbon Dioxide 24 Anion Gap 14.0 H BUN 21 H Creatinine 1.6 H Estimated GFR (MDRD) 41 L Glucose 219 H Calcium 8.8 Magnesium Total Bilirubin 0.5 AST 25 ALT 23 Alkaline Phosphatase 73 Troponin I High Sens 11.5 Total Protein 6.9 Albumin 3.9 Globulin 3.0 Albumin/Globulin Ratio 1.3 Lipase 31 07/20/19 19:42 WBC RBC Hgb Hct MCV MCH MCHC RDW Plt Count MPV Neut # (Auto) Lymph # (Auto) Cross # (Auto) Eos # (Auto) Baso # (Auto) Absolute Nucleated RBC Nucleated RBC % Sodium Potassium Chloride Carbon Dioxide Anion Gap BUN Creatinine Estimated GFR (MDRD) Glucose Calcium Magnesium 1.9 Total Bilirubin AST ALT Alkaline Phosphatase Troponin I High Sens Total Protein Albumin Globulin Albumin/Globulin Ratio Lipase - Rads (name of study) chest CT Radiology: Prelim report reviewed (no acute processes), See rad report head/neck/face CT Radiology: Prelim report reviewed (No fractures nor ICH. There is mass in left tonsillar pillar area, with some distortion of the mastoid air cells and erosion of the petrous ridge. ), See rad report Procedures - Laceration (location) left upper lip Length in cm: 1.5 Wound type: Stellate, Into subcut fat, Clean Neurovascular status: Sensory intact, Motor intact Anesthesia: LET Wound Preparation: Irrigated copiously NS, Wound explored, To the base. No: FB identified Skin layer closure: Nylon, Running, Size #-0 - enter number (5), Sutures - enter # (6) Other: Patient tolerated well, No complications, Neurovascular intact, Tetanus UTD Complexity: Simple PD MEDICAL DECISION MAKING - ED course Complexity details: re-evaluated patient (Sounds like mechanical fall and was not syncopal episode. No unilateral weakness but really sounds like his footing missed stepped and possibly his knee gave out sounding meniscal. He does not have any notable injuries on CT scans but did find a unknown on previously known throat mass with erosion of the petrous ridge. Clinically I cannot see it in the throat or palpably on the neck and he does not have any lump feeling with swallowing. This is truly in fortunate incidental finding and hopefully it is not evolved too much at this time. Refer him to ENT at this point for initial evaluation.), considered differential (The patient denies lightheadedness nor feeling of near syncope or syncope. He states he was walking a usual route that he walks uphill and then returns downhill. As he turned from going uphill to start downhill he states his feet felt family and his leg gave out and he fell forward onto his face. He denied any ongoing feeling of weakness of his legs and did not have any weakness of his arms. He states he has had problems with his left knee in the past with cartilage and it does feel like it gives out at times.), d/w patient Departure - Departure Disposition: 01 Home, Self Care Clinical Impression: Neck mass Fall from slip, trip, or stumble Qualifiers: Encounter type: initial encounter Qualified Code(s): W01.0XXA - Fall on same level from slipping, tripping and stumbling without subsequent striking against object, initial encounter Facial contusion Qualifiers: Encounter type: initial encounter Qualified Code(s): S00.83XA - Contusion of other part of head, initial encounter Lip laceration Qualifiers: Encounter type: initial encounter Qualified Code(s): S01.511A - Laceration without foreign body of lip, initial encounter Condition: Stable Record reviewed to determine appropriate education?: Yes Instructions: ED Laceration Facial Sutr Tape Follow-Up: Steven Pinedo MD [Primary Care Provider] - [facility] [Provider Group] Comments: It is okay to wash and shower. Clean off the wound twice a day with soap and water, or peroxide and water. Apply some antibiotic ointment to it to keep it moist. Also to watch for signs of infection such as purulence, redness or increasing pain. Return to your primary care or the ER at the specified time for suture removal. Suture removal 7 or 8 days. Tylenol if needed for pains. The CT scans of your head face and neck did not show any obvious fractures or bleeding. Your chest scan was normal as well. You will still be sore in those areas. 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 It is causing some erosion in the bone near the base of the ear as well so it is concerning for neoplasm. Call ENT and follow-up with them regarding further evaluation of it and whether this needs biopsy (presumably) or if it is a surgical approach. Call them tomorrow for a soon follow-up. Discharge Date/Time: 07/20/19 23:52
[2019-07-20 19:48] LABS: BASOPHILS # (AUTO) 0.1 10^3/uL (0.0-0.1); BASOPHILS % (AUTO) 0.9 %; EOSINOPHILS # (AUTO) 0.3 10^3/uL (0.0-0.7); EOSINOPHILS % (AUTO) 3.1 %; HGB - HEMOGLOBIN 14.4 g/dL (14.0-18.0); LYMPHOCYTES # (AUTO) 2.1 10^3/uL (1.5-3.5); LYMPHOCYTES % (AUTO) 23.2 %; MEAN CORPUSCULAR HEMOGLOBIN 33.4 pg (27.0-31.0); MEAN CORPUSCULAR HGB CONC 33.6 g/dL (32.0-36.0); MEAN CORPUSCULAR VOLUME 99.3 fL (80.0-94.0); MONOCYTES # (AUTO) 0.6 10^3/uL (0.0-1.0); MONOCYTES % (AUTO) 6.7 %; NEUTROPHILS % (AUTO) 65.3 %; PLT - PLATELET COUNT 262 10^3/uL (130-450); RED BLOOD COUNT 4.31 10^6/uL (4.70-6.10); RED CELL DISTRIBUTION WIDTH 12.6 % (12.0-15.0); WHITE BLOOD COUNT 9.2 x10^3/uL (4.8-10.8)
[2019-07-20 20:02] LABS: ALBUMIN 3.9 g/dL (3.2-5.5); ALBUMIN/GLOBULIN RATIO 1.3 (1.0-2.2); BILIRUBIN,TOTAL 0.5 mg/dL (0.2-1.0); CALCIUM 8.8 mg/dL (8.5-10.3); CREATININE 1.6 mg/dL (0.6-1.2); TOTAL PROTEIN 6.9 g/dL (6.7-8.2)
[2019-07-20] MEDS ORDERED: KETOROLAC 15 MG/ML VIAL IVP STA (20:12)
[2019-07-20] MEDS ORDERED: SODIUM CHLORIDE 0.9% 1,000 ML IV STA (20:12)
[2019-07-20] MEDS ORDERED: MORPHINE 2 MG/ML CARPUJECT IVP STA (20:12)
[2019-07-20] MEDS ORDERED: IOVERSOL 320 100 ML VIAL IVP ONE ×2 (20:24→21:03)
--- NOTE | 2019-07-20 21:30 | CT Report ---
Reason: fall with sternal tenderness Procedure Date: 07/20/2019 Accession Number: [id number] / [id number] Procedure: CT - CHEST W CPT Code: Final Report FULL RESULT: PROCEDURE: CHEST W INDICATIONS: fall with sternal tenderness CONTRAST: IV CONTRAST: Optiray 320 ml: 80 PO CONTRAST: *NO PO CONTRAST TECHNIQUE: After the administration of intravenous contrast, 5 mm thick sections acquired from the pulmonary apices to the posterior costophrenic angles. 7 mm thick coronal MIP reformats were acquired. For radiation dose reduction, the following was used: automated exposure control, adjustment of mA and/or kV according to patient size. COMPARISON: None. FINDINGS: Image quality: Excellent. Lungs and pleura: No acute air space opacities. No pleural effusions or pneumothorax. Central and peripheral airways are patent and normal in caliber. Mediastinum: Heart size is normal. No pericardial effusion. No mediastinal or hilar adenopathy by size criteria. Thoracic aorta and central pulmonary arteries are normal in size. Esophagus is normal in caliber. No hiatal hernia. Bones and chest wall: No suspicious bony lesions. No vertebral body compression fractures. No axillary or supraclavicular adenopathy by size criteria. Thyroid gland appears normal where well seen. Abdomen: There is a large hiatal hernia behind the heart IMPRESSION: No definite acute disease over the chest. Large hiatal hernia behind the heart. Please also refer to dedicated reports for scanning of the abdomen/pelvis. Reviewed by: Joel Robles MD on 07/20/2019 9:28 PM PDT Approved by: Joel Robles MD on 07/20/2019 9:28 PM PDT Station ID: [id number]
[2019-07-20] MEDS ORDERED: LIDOCAINE-EPINEPH-TETRACAINE 3 ML SYRINGE TOP STA (21:32)
--- NOTE | 2019-07-20 21:38 | CT Report ---
Reason: fall with facial injury and headache Procedure Date: 07/20/2019 Accession Number: [id number] / [id number] Procedure: CT - MAXILLOFACIAL WO CPT Code: Final Report FULL RESULT: PROCEDURE: MAXILLOFACIAL WO INDICATIONS: fall with facial injury and headache TECHNIQUE: Noncontrast 1.5 mm thick axial images acquired from the mandible through the frontal sinuses, with coronal and sagittal reformatting. For radiation dose reduction, the following was used: automated exposure control, adjustment of mA and/or kV according to patient size. COMPARISON: None. FINDINGS: Image quality: Excellent. Bones and teeth: Orbital chiu are intact. Sinus chiu show no fracture or deformity. Nasal bones and septum are intact. Visualized portions of the mandible demonstrate no fractures or subluxation but there is relatively severe degeneration at the left mandibular condyle. Zygomatic arches are intact. Pterygoid plates are intact. Sinuses: Paranasal sinuses are aerated, without fluid levels, mucosal thickening, or mucoceles. Mastoid air cells are asymmetrically normally aerated on the right but densely opacified on the left. Soft tissues: No edema or fluid collections. There is a masslike deformity involving the base of the left than the contiguous left tonsillar pillar, seen on axial imaging, with soft tissue asymmetry extending posteriorly to the skull base. Axial and coronal reformation imaging show what appears to the skull base osseous erosions involving the medial left petrous ridge, incompletely visualized by this noncontrast CT scanning. No enlarged lymph nodes. No soft tissue lacerations or debris. Vascular: Visualized vascular structures appear normal in the absence of contrast. Bony vascular foramina and canals are intact. IMPRESSION: 1. No acute trauma found. 2. 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 This is associated with asymmetric dense opacification through the mastoid air cells on the left, and ostial lysis appears to extend into the occipital condyle on the left. Follow-up by contrast-enhanced MR scanning is recommended to most accurately assess the skull base lesion and adjacent left-sided pharyngeal soft tissue abnormalities. 3. Incidental note is made of asymmetric left-sided predominant mandibular condyle degeneration. Reviewed by: Joel Robles MD on 07/20/2019 9:37 PM PDT Approved by: Joel Robles MD on 07/20/2019 9:37 PM PDT Station ID: [id number]
--- NOTE | 2019-07-20 21:44 | CT Report ---
Reason: fall with facial injury and headache Procedure Date: 07/20/2019 Accession Number: [id number] / [id number] Procedure: CT - HEAD WO CPT Code: Final Report FULL RESULT: PROCEDURE: HEAD WO INDICATIONS: fall with facial injury and headache TECHNIQUE: Noncontrast 4.5 mm thick angled axial sections acquired from the foramen magnum to the vertex. For radiation dose reduction, the following was used: automated exposure control, adjustment of mA and/or kV according to patient size. COMPARISON: None. FINDINGS: Image quality: Excellent. CSF spaces: Basal cisterns are patent. No extra-axial fluid collections. Ventricles are normal in size and shape. Brain: No midline shift. No intracranial masses or hemorrhage. Varghese-white matter interface is normal except at the left temporal fossa where encephalomalacia is present and asymmetric enlargement of the temporal horn of the left lateral ventricle is associated. Skull and face: Calvarium and visualized facial bones are intact, without suspicious lesions. Note is made of what appears to be a fixation plate at the left lateral orbital rim, and also left posterior temporal prior craniotomy, in this patient with possible osteolytic process at the medial left petrous ridge. Sinuses: Visualized sinuses and mastoids are clear. 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 Secondary mild enlargement of the temporal horn of the left lateral ventricle. No acute trauma found. Note is made of prior craniotomy on the left involving the left temporal bone, and it is unclear whether the prior operative procedure may relate to the findings worrisome for representing a medial left petrous ridge osteolytic process. Clinical history provided indicates some form of brain surgery in 2003 reported by the patient. The area of concern for asymmetry of the left tonsillar pillar and left base of tongue is not included on this portion of the patient and evaluation by CT scanning this evening. Chronicity therefore is uncertain. Reviewed by: Joel Robles MD on 07/20/2019 9:43 PM PDT Approved by: Joel Robles MD on 07/20/2019 9:43 PM PDT Station ID: [id number]
--- NOTE | 2019-07-20 21:51 | CT Report ---
Reason: fall with head/neck pain Procedure Date: 07/20/2019 Accession Number: [id number] / [id number] Procedure: CT - CERVICAL SPINE WO CPT Code: Final Report FULL RESULT: PROCEDURE: CERVICAL SPINE WO INDICATIONS: fall with head/neck pain TECHNIQUE: Noncontrast 3 mm thick sections acquired from the skull base to the T4 level. Sagittal and coronal reformats were then constructed. For radiation dose reduction, the following was used: automated exposure control, adjustment of mA and/or kV according to patient size. COMPARISON: None. FINDINGS: Image quality: Excellent. Bones: No cervical fractures or dislocations. Visualized superior ribs are intact. Note is again made of the findings of prior left temporal craniotomy and what appears to be a osteolytic process involving the medial left petrous ridge, chronicity uncertain. Soft tissues: Prevertebral soft tissues are normal in thickness but again noted is the asymmetric soft tissue prominence along the left tonsillar pillar and base of the tongue on the left.. No paravertebral hematomas. No apical pneumothoraces. IMPRESSION: As was previously described in maxillofacial CT report there is no acute appearing trauma but significant distortions are present involving the soft tissues in the area of the left tonsillar pillar, and the possible permeative infiltrative neoplastic process may explain the increased radiodensity and loss of fat planes adjacent to the undersurface of the base of the left skull and what appears to be ostial lysis at the medial anterior left petrous ridge. The clinical history seems to indicate some form of prior brain surgery but the current findings extend well beyond the cranial vault. Close clinical correlation to the base of the left, and tonsillar pillar area, and also obtaining old comparison CT and MR studies through this area would be recommended. Follow-up by dedicated high-resolution postcontrast MR scanning through the skull base and pharyngeal regions likely is warranted, electively, unless these abnormalities can be established as chronic. Reviewed by: Joel Robles MD on 07/20/2019 9:49 PM PDT Approved by: Joel Robles MD on 07/20/2019 9:49 PM PDT Station ID: [id number]
[2019-07-20 23:35] VITALS: BP 156/68
== END 2019-07-20 23:52 | disposition home or self-care (01) ==
LOC: EDUNIT# → ED 18:56
DX: S01.511A Laceration without foreign body of lip, initial encounter (principal); S00.83XA Contusion of other part of head, initial encounter; S00.81XA Abrasion of other part of head, initial encounter; W01.0XXA Fall on same level from slipping, tripping and stumbling without subsequent striking against object, initial encounter; Y93.01 Activity, walking, marching and hiking; Y92.410 Unspecified street and highway as the place of occurrence of the external cause; R22.1 Localized swelling, mass and lump, neck; K44.9 Diaphragmatic hernia without obstruction or gangrene; I45.2 Bifascicular block; E11.9 Type 2 diabetes mellitus without complications; Z79.84 Long term (current) use of oral hypoglycemic drugs
CPT/HCPCS: 12011; 36415; 70450; 70486; 71260; 72125; 80053; 83690; 83735; 84484; 85025; 93005; 96361; 96374; 99284; Q9967

== ENCOUNTER 2019-07-29 13:21 | Emergency (ER) | payer MEDICARE, OTHER ==
[2019-07-29 13:37] VITALS: BP 158/67
--- NOTE | 2019-07-29 13:47 | ED Physician Documentation ---
History of Present Illness - Stated complaint Stated Complaint: Suture removal - Chief complaint Chief Complaint: General - History obtained from History obtained from: Patient - Additonal information Additional information: Patient comes emergency department for removal of sutures from his left upper lip after sustaining a laceration on July 19. Patient states the wound has been doing well and that he was not able to get in a couple of days ago when he was actually supposed to have the sutures removed. No redness or drainage of the wound. No wound dehiscence. Patient denies any other trauma to the area. No other complaints at this time. Review of Systems Ten Systems: 10 systems reviewed and negative Constitutional: reports: Reviewed and negative Eyes: reports: Reviewed and negative Ears: reports: Reviewed and negative Nose: reports: Reviewed and negative Throat: reports: Reviewed and negative Cardiac: reports: Reviewed and negative Respiratory: reports: Reviewed and negative GI: reports: Reviewed and negative : reports: Reviewed and negative Skin: reports: Laceration (s) (Healed) Musculoskeletal: reports: Reviewed and negative Neurologic: reports: Reviewed and negative Psychiatric: reports: Reviewed and negative Endocrine: reports: Reviewed and negative Immunocompromised: reports: Reviewed and negative PD PAST MEDICAL HISTORY - Past Medical History Past Medical History: Yes Cardiovascular: None Respiratory: None Neuro: None, Other Endocrine/Autoimmune: Type 2 diabetes GI: GERD : Benign prostate hypertrophy HEENT: Chronic vision loss, Chronic hearing loss Psych: None Musculoskeletal: Chronic back pain Derm: None - Past Surgical History Past Surgical History: Yes General: Colonoscopy, EGD Neuro: Craniotomy - Present Medications Home Medications: Ambulatory Orders Medication Instructions Recorded Confirmed Cholecalciferol (Vitamin D3) 2,000 unit PO DAILY 03/22/18 07/20/18 [Vitamin D3] Cod Liver Oil 1 each PO DAILY 03/22/18 07/20/18 Finasteride 5 mg PO DAILY 03/22/18 07/20/18 Multivitamin [Multivitamins] 1 each PO DAILY 03/22/18 07/20/18 Omeprazole 20 mg PO DAILY 03/22/18 07/20/18 Primidone 75 mg PO BID 03/22/18 07/20/18 Glucosamine Sulfate Dipot Chlr 1,000 mg PO BID 03/23/18 07/20/18 [Glucosamine Sulfate] Rosuvastatin Calcium 5 mg PO DAILY 03/23/18 07/20/18 metFORMIN [Glucophage] 1,500 mg PO TIDWM 03/23/18 07/20/18 Ferrous Gluconate [Fergon] 270 mg PO DAILY #30 tablet 03/24/18 07/20/18 diphenhydrAMINE [Benadryl] 25 mg PO BID PRN #0 03/24/18 07/20/18 - Allergies Allergies/Adverse Reactions: Allergies Allergy/AdvReac Type Severity Reaction Status Date / Time Sulfa (Sulfonamide AdvReac Rash Verified 07/29/19 13:26 Antibiotics) - Social History Does the pt smoke?: No Smoking Status: Never smoker Does the pt drink ETOH?: No Does the pt have substance abuse?: No - Immunizations Immunizations are current?: Yes - POLST Patient has POLST: No PD ED PE NORMAL - Vitals Vital signs reviewed: Yes - General General: Alert and oriented X 3, No acute distress - HEENT HEENT: Atraumatic, PERRL, EOMI, Moist mucous membranes (5 mm healing mucosal laceration of the left upper lip which appears to have previously communicated with the external laceration noted below.No induration or wound drainage.), Other (No acute trauma of the face or mouth noted.) - Neck Neck: Supple, no meningeal sign - Respiratory Respiratory: No respiratory distress - Derm Derm: Normal color, Warm and dry, No rash, Other (Well-healed laceration noted on the left upper lip with no sutures in place. No erythema or induration. No evidence of sutures beneath the skin. No wound dehiscence or drainage.) - Extremities Extremities: No deformity - Neuro Neuro: Alert and oriented X 3 - Psych Psych: Normal mood, Normal affect Results - Vitals Vitals: Vital Signs - 24 hr 07/29/19 13:26 Temperature 36.7 C Heart Rate 73 Respiratory 14 Rate Blood Pressure 158/67 H O2 Saturation 98 Oxygen O2 Source Room air PD MEDICAL DECISION MAKING - ED course Complexity details: considered differential, d/w patient ED course: I discussed with the patient that I do not see any sutures present in his wound. The patient then did note that he had shaved at this morning with his electric razor, and on reexamination, I did note that patient had freshly shaved hairs directly adjacent to the wound. Review of the patient's prior note stated the patient had had a running suture with 5-0 nylon. I discussed with the patient that his sutures appear to be completely gone at this point. We have discussed home management of the wound, which is almost completely healed. We have also discussed the usual indications for return. Departure - Departure Disposition: 01 Home, Self Care Clinical Impression: Visit for wound check Condition: Stable Instructions: ED Wound Check Sutr Remove No Infec Comments: You have no sutures in place at this time. Most likely, while you are receiving, your sutures were cut and pulled out. Please follow-up with your primary doctor if needed. At this point in time, however, your wound looks great, and is unlikely to cause you any issues.
== END 2019-07-29 14:12 | disposition home or self-care (01) ==
LOC: ED 13:21
DX: S01.511D Laceration without foreign body of lip, subsequent encounter (principal); X58.XXXD Exposure to other specified factors, subsequent encounter; E11.9 Type 2 diabetes mellitus without complications; Z79.84 Long term (current) use of oral hypoglycemic drugs
CPT/HCPCS: 99281

== ENCOUNTER 2020-11-12 18:44 | Outpatient (CLI) | payer MEDICARE, OTHER | END 2020-11-12 18:45 | disposition critical access hospital (66) | LOC: EMS 18:44 | DX: R55 Syncope and collapse (principal); I95.9 Hypotension, unspecified | CPT/HCPCS: A0425; A0427 ==

== ENCOUNTER 2020-11-12 19:31 | Emergency (ER) | payer MEDICARE, OTHER ==
[2020-11-12 20:21] LABS: BASOPHILS # (AUTO) 0.1 10^3/uL (0.0-0.1); BASOPHILS % (AUTO) 0.3 %; EOSINOPHILS % (AUTO) 0.1 %; HCT - HEMATOCRIT 37.9 % (42.0-52.0); HGB - HEMOGLOBIN 12.2 g/dL (14.0-18.0); LYMPHOCYTES # (AUTO) 0.9 10^3/uL (1.5-3.5); LYMPHOCYTES % (AUTO) 4.9 %; MEAN CORPUSCULAR HEMOGLOBIN 32.8 pg (27.0-31.0); MEAN CORPUSCULAR HGB CONC 32.2 g/dL (32.0-36.0); MEAN CORPUSCULAR VOLUME 101.9 fL (80.0-94.0); MEAN PLATELET VOLUME 8.9 fL (7.4-11.4); MONOCYTES # (AUTO) 0.9 10^3/uL (0.0-1.0); MONOCYTES % (AUTO) 4.9 %; NEUTROPHILS # (AUTO) 15.6 10^3/uL (1.5-6.6); NEUTROPHILS % (AUTO) 89.2 %; PLT - PLATELET COUNT 357 10^3/uL (130-450); RED BLOOD COUNT 3.72 10^6/uL (4.70-6.10); WHITE BLOOD COUNT 17.5 x10^3/uL (4.8-10.8)
[2020-11-12 20:35] LABS: ALBUMIN 3.6 g/dL (3.2-5.5); ALBUMIN/GLOBULIN RATIO 1.2 (1.0-2.2); BILIRUBIN,TOTAL 1.6 mg/dL (0.2-1.0); CALCIUM 9.1 mg/dL (8.5-10.3); CREATININE 1.3 mg/dL (0.6-1.2); POTASSIUM 3.5 mmol/L (3.5-5.0); TOTAL PROTEIN 6.7 g/dL (6.7-8.2)
--- NOTE | 2020-11-12 20:52 | XRAY Report ---
PROCEDURE: Chest 1 View X-Ray INDICATIONS: Chest Pain TECHNIQUE: One view of the chest was acquired. COMPARISON: CT chest dated 07/20/2019 FINDINGS: Surgical changes and devices: None. Lungs and pleura: No pleural effusions or pneumothorax. Minimal streaky left basilar opacities likel y representing atelectasis. Moderate size hiatal hernia as before. Mediastinum: Mediastinal contours appear normal. Heart size is normal. Bones and chest wall: No suspicious bony lesions. Overlying soft tissues appear unremarkable. IMPRESSION: Chest without acute cardiopulmonary abnormalities. Moderate-sized hiatal hernia with adjacent compressive atelectasis of the left lung base. Reviewed by: Giancarlo Major MD on 11/12/2020 8:51 PM PDT Approved by: Giancarlo Major MD on 11/12/2020 8:51 PM PDT Station ID: [id number]
--- NOTE | 2020-11-12 21:28 | ED Physician Documentation ---
PD HPI SYNCOPE - Stated complaint Stated Complaint: GLF/ALOC - Chief complaint Chief Complaint: Neuro - History obtained from History obtained from: Patient - History of Present Illness Witnessed: Witnessed Timing - onset: Today Duration: Seconds Preceding symptoms: Vision changes, Light headed, Generalized weakness Contributing factors: Other (viagra) Injury occurred: None Similar symptoms before: Has not had sx before Recently seen: Clinic - Additional information Additional information: 85-year-old male took some Viagra this evening and within about an hour he began to feel lightheaded and dizzy and had a syncopal episode. The patient was hypoxic at the scene and has subsequently recovered.The patient tells me that he feels normal now. He has had a 2-month history of dysphagia and he has been evaluated for a mass in his neck. He has not been able to eat much she has lost weight and he indicates that even when he swallows liquids it sometimes is having a hard time going down. Review of Systems Constitutional: denies: Fever Eyes: denies: Decreased vision Ears: denies: Ear pain Nose: denies: Congestion Throat: denies: Sore throat Respiratory: denies: Cough GI: reports: Vomiting PD PAST MEDICAL HISTORY - Past Medical History Cardiovascular: None Respiratory: None Neuro: None, Other Endocrine/Autoimmune: Type 2 diabetes GI: GERD : Benign prostate hypertrophy HEENT: Chronic vision loss, Chronic hearing loss Psych: None Musculoskeletal: Chronic back pain Derm: None - Past Surgical History Past Surgical History: Yes General: Colonoscopy, EGD Neuro: Craniotomy - Present Medications Home Medications: Ambulatory Orders Medication Instructions Recorded Confirmed Cholecalciferol (Vitamin D3) 2,000 unit PO DAILY 03/22/18 07/20/18 [Vitamin D3] Cod Liver Oil 1 each PO DAILY 03/22/18 07/20/18 Finasteride 5 mg PO DAILY 03/22/18 07/20/18 Multivitamin [Multivitamins] 1 each PO DAILY 03/22/18 07/20/18 Omeprazole 20 mg PO DAILY 03/22/18 07/20/18 Primidone 75 mg PO BID 03/22/18 07/20/18 Glucosamine Sulfate Dipot Chlr 1,000 mg PO BID 03/23/18 07/20/18 [Glucosamine Sulfate] Rosuvastatin Calcium 5 mg PO DAILY 03/23/18 07/20/18 metFORMIN [Glucophage] 1,500 mg PO TIDWM 03/23/18 07/20/18 Ferrous Gluconate [Fergon] 270 mg PO DAILY #30 tablet 03/24/18 07/20/18 diphenhydrAMINE [Benadryl] 25 mg PO BID PRN #0 03/24/18 07/20/18 - Allergies Allergies/Adverse Reactions: Allergies Allergy/AdvReac Type Severity Reaction Status Date / Time Sulfa (Sulfonamide Allergy Intermediate Rash Verified 11/12/20 19:46 Antibiotics) - Social History Does the pt smoke?: No Smoking Status: Never smoker Does the pt drink ETOH?: No Does the pt have substance abuse?: No - Immunizations Immunizations are current?: Yes - POLST Patient has POLST: No PD ED PE NORMAL - Vitals Vital signs reviewed: Yes (Wide pulse pressure and hypoxia) - General General: Alert and oriented X 3, No acute distress, Well developed/nourished, Other (Low gravelly voice) - HEENT HEENT: Atraumatic, PERRL, EOMI - Neck Neck: Supple, no meningeal sign, No bony TTP - Cardiac Cardiac: RRR, No murmur - Respiratory Respiratory: No respiratory distress, Clear bilaterally - Abdomen Abdomen: Normal bowel sounds, Soft, Non tender, Non distended, No organomegaly - Back Back: No CVA TTP, No spinal TTP - Derm Derm: Normal color, Warm and dry, No rash - Extremities Extremities: No deformity, No edema - Neuro Neuro: Alert and oriented X 3, 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, No motor deficit, No sensory deficit, Other (The speech is low and gravelly) Eye Opening: Spontaneous Motor: Obeys Commands Verbal: Oriented GCS Score: 15 - Psych Psych: Normal mood, Normal affect Results - Vitals Vitals: Vital Signs - 24 hr 11/12/20 11/12/20 11/12/20 19:39 19:46 20:35 Temperature 36.1 C L Heart Rate 92 97 Respiratory 24 21 Rate Blood Pressure 113/55 L 139/63 H O2 Saturation 87 L 95 97 11/12/20 11/12/20 11/12/20 21:00 21:38 22:00 Temperature 37.2 C Heart Rate 92 91 90 Respiratory 20 16 18 Rate Blood Pressure 125/59 L 139/61 H 130/64 O2 Saturation 94 96 95 11/12/20 11/12/20 11/12/20 22:30 23:00 23:30 Temperature 37.0 C Heart Rate 87 97 90 Respiratory 17 23 20 Rate Blood Pressure 114/64 114/64 112/62 O2 Saturation 96 94 95 Oxygen O2 Source Room air - EKG (time done) 20:06 Rate: Rate (enter#) (94) Rhythm: NSR Tad: Anterior hemiblock Intervals: RBBB Ischemia: Normal ST segments Compare to prior EKG: Changed from prior EKG (SPT 11-29-19 rate has increased) Computer interpretation: Agree with computer - Labs Labs: Laboratory Tests 11/12/20 11/12/20 11/12/20 20:14 20:14 20:14 WBC 17.5 H RBC 3.72 L Hgb 12.2 L Hct 37.9 L MCV 101.9 H MCH 32.8 H MCHC 32.2 RDW 13.0 Plt Count 357 MPV 8.9 Neut # (Auto) 15.6 H Lymph # (Auto) 0.9 L Daniels # (Auto) 0.9 Eos # (Auto) 0.0 Baso # (Auto) 0.1 Absolute Nucleated RBC 0.00 Nucleated RBC % 0.0 Sodium 141 Potassium 3.5 Chloride 103 Carbon Dioxide 22 Anion Gap 16.0 H BUN 23 H Creatinine 1.3 H Estimated GFR (MDRD) 52 L Glucose 185 H Calcium 9.1 Total Bilirubin 1.6 H AST 23 ALT 34 Alkaline Phosphatase 67 Troponin I High Sens 27.1 H* Total Protein 6.7 Albumin 3.6 Globulin 3.1 Albumin/Globulin Ratio 1.2 Lipase 24 11/12/20 22:34 WBC RBC Hgb Hct MCV MCH MCHC RDW Plt Count MPV Neut # (Auto) Lymph # (Auto) Daniels # (Auto) Eos # (Auto) Baso # (Auto) Absolute Nucleated RBC Nucleated RBC % Sodium Potassium Chloride Carbon Dioxide Anion Gap BUN Creatinine Estimated GFR (MDRD) Glucose Calcium Total Bilirubin AST ALT Alkaline Phosphatase Troponin I High Sens 31.9 H* Total Protein Albumin Globulin Albumin/Globulin Ratio Lipase - Rads (name of study) chest Radiology: Prelim report reviewed (Impression: Chest without acute cardiopulmonary abnormalities. Moderate sized hiatal hernia with adjacent compressive atelectasis of the left lung base.), EMP read indepedently, See rad report PD MEDICAL DECISION MAKING - ED course Complexity details: reviewed old records, reviewed results, re-evaluated patient, considered differential, d/w patient ED course: 85-year-old male with syncope after taking Viagra as a mild elevation in his troponin which is stable and he is administered a banana bag intravenously for support. He has not been able to eat or drink normally for 2 months. He is currently undergoing evaluation for a mass in his neck. He feels back to his baseline. He was discharged to home. Departure - Departure Disposition: 01 Home, Self Care Clinical Impression: Syncope due to orthostatic hypotension, Dehydration Condition: Stable Instructions: ED Dehydration, ED Syncope Vasovagal Follow-Up: Steven Pinedo MD [Primary Care Provider] - Discharge Date/Time: 11/13/20 00:15
[2020-11-12] MEDS ORDERED: FOLIC ACID INJ 1 MG, THIAMINE INJ 100 MG, MAGNESIUM SULFATE 2 GM, MULTIVITAMIN 10 ML in... IV STA ×5 (22:30)
[2020-11-12] MEDS ORDERED: MAGNESIUM SULFATE 1 GM/2 ML VIAL ONE (22:41)
[2020-11-12] MEDS ORDERED: THIAMINE 100 MG/1 ML 2 ML MDV ONE (22:41)
[2020-11-12] MEDS ORDERED: ACETAMINOPHEN 325 MG TABLET PO STA (22:47)
[2020-11-12 23:48] VITALS: BP 112/62
== END 2020-11-13 00:15 | disposition home or self-care (01) ==
LOC: EDUNIT# → ED 19:31
DX: I95.1 Orthostatic hypotension (principal); E11.9 Type 2 diabetes mellitus without complications; Z79.84 Long term (current) use of oral hypoglycemic drugs; R09.02 Hypoxemia
CPT/HCPCS: 36415; 71045; 80053; 83690; 84484; 85025; 93005; 96365; 99283; 99284; A9270; J3411

== ENCOUNTER 2021-07-26 10:54 | Emergency (ER) | payer MEDICARE, OTHER ==
[2021-07-26] MEDS ORDERED: SODIUM CHLORIDE 0.9% 1,000 ML IV STA ×2 (11:20→12:38)
--- NOTE | 2021-07-26 11:24 | ED Physician Documentation ---
History of Present Illness - Stated complaint Stated Complaint: WEAK - Chief complaint Chief Complaint: General - History obtained from History obtained from: Patient - Additonal information Additional information: 85-year-old gentleman with history of craniotomy for probably meningioma had had troubles with swallowing for quite some time. He was seen by GI at the [facility] and had several upper endoscopies, the findings are unknown but he sounds like there was nothing major. Subsequently about 8 months ago started to lose his voice and was seen by ENT. Per his description he had nasolaryngoscopy showing vocal cord dysfunction and/or paralysis. He has had a gravelly low voice since then but about 4 days ago developed a cough and feels like there is mucus stuck in his throat and because of that he cannot tolerate swallowing food or liquid, it just comes right back up. He has a runny nose with it. No fevers. Review of Systems Ten Systems: 10 systems reviewed and negative Constitutional: denies: Fever, Chills Throat: reports: Reviewed and negative Cardiac: reports: Reviewed and negative Respiratory: reports: Reviewed and negative PD PAST MEDICAL HISTORY - Past Medical History Cardiovascular: None Respiratory: None Neuro: None, Other Endocrine/Autoimmune: Type 2 diabetes GI: GERD : Benign prostate hypertrophy HEENT: Chronic vision loss, Chronic hearing loss Psych: None Musculoskeletal: Chronic back pain Derm: None - Past Surgical History Past Surgical History: Yes General: Colonoscopy, EGD Neuro: Craniotomy - Present Medications Home Medications: Ambulatory Orders Medication Instructions Recorded Confirmed Cholecalciferol (Vitamin D3) 2,000 unit PO DAILY 03/22/18 07/20/18 [Vitamin D3] Cod Liver Oil 1 each PO DAILY 03/22/18 07/20/18 Finasteride 5 mg PO DAILY 03/22/18 07/20/18 Multivitamin [Multivitamins] 1 each PO DAILY 03/22/18 07/20/18 Omeprazole 20 mg PO DAILY 03/22/18 07/20/18 Primidone 75 mg PO BID 03/22/18 07/20/18 Glucosamine Sulfate Dipot Chlr 1,000 mg PO BID 03/23/18 07/20/18 [Glucosamine Sulfate] Rosuvastatin Calcium 5 mg PO DAILY 03/23/18 07/20/18 metFORMIN [Glucophage] 1,500 mg PO TIDWM 02/12/19 06/11/19 Ferrous Gluconate [Fergon] 270 mg PO DAILY #30 tablet 03/24/18 07/20/18 diphenhydrAMINE [Benadryl] 25 mg PO BID PRN #0 03/24/18 07/20/18 Amoxicillin/Potassium Clav 10 ml PO BID #200 ml 07/26/21 [Amox-Clav 400-57 mg/5 ml Susp] - Allergies Allergies/Adverse Reactions: Allergies Allergy/AdvReac Type Severity Reaction Status Date / Time Sulfa (Sulfonamide Allergy Intermediate Rash Verified 07/26/21 11:17 Antibiotics) - Social History Does the pt smoke?: No Smoking Status: Never smoker Does the pt drink ETOH?: No Does the pt have substance abuse?: No - Immunizations Immunizations are current?: Yes - POLST Patient has POLST: No PD ED PE NORMAL - Vitals Vital signs reviewed: Yes - General General: Alert and oriented X 3, Other (Quiet gravelly slow voice and has a coarse tremor.) - HEENT HEENT: Other (Visualized portions of the oropharynx are normal) - Neck Neck: Supple, no meningeal sign, No bony TTP - Cardiac Cardiac: RRR, No murmur - Respiratory Respiratory: No respiratory distress, Clear bilaterally - Back Back: No CVA TTP, No spinal TTP - Derm Derm: Normal color, Warm and dry - Extremities Extremities: No edema, No calf tenderness / cord - Neuro Neuro: Alert and oriented X 3, Normal speech Results - Vitals Vitals: Vital Signs - 24 hr 07/26/21 07/26/21 11:13 11:55 Temperature 36.9 C Heart Rate 87 73 Respiratory 14 17 Rate Blood Pressure 116/67 O2 Saturation 98 98 Oxygen O2 Source Room air - Labs Labs: Laboratory Tests 07/26/21 07/26/21 11:28 11:28 WBC 7.7 RBC 4.14 L Hgb 13.4 L Hct 41.8 L MCV 101.0 H MCH 32.4 H MCHC 32.1 RDW 13.1 Plt Count 349 MPV 9.6 Neut # (Auto) 5.1 Lymph # (Auto) 1.8 Linn # (Auto) 0.6 Eos # (Auto) 0.1 Baso # (Auto) 0.1 Absolute Nucleated RBC 0.00 Nucleated RBC % 0.0 Sodium 141 Potassium 4.0 Chloride 99 L Carbon Dioxide 28 Anion Gap 14.0 H BUN 21 H Creatinine 1.3 H Estimated GFR (MDRD) 52 L Glucose 142 H Calcium 9.9 Magnesium 1.9 Total Bilirubin 0.7 AST 36 ALT 50 Alkaline Phosphatase 82 Total Protein 8.2 Albumin 3.9 Globulin 4.3 H Albumin/Globulin Ratio 0.9 L Lipase 26 PD MEDICAL DECISION MAKING - ED course ED course: I tried to have him drink a glass of water at the bedside. He started coughing and sputtering and spit up some mucus fairly quickly after drinking just a few sips. 85-year-old gentleman presents with difficulty swallowing, this is in addition to a subacute process which is caused him to lose his voice. Now he is more phlegmy and having difficulty keeping anything down. Mild prerenal azotemia with a BUN of 21 and creatinine of 1.3, basically unremarkable electrolytes and CBC. CT of the neck and chest were with and without contrast given the ongoing severe contrast shortage and concerning for an abnormality in the tongue with atrophic tongue and a slowly progressive mass with left lower lobe nodule suggestive of infection or inflammation. He may have a mild case of aspiration and received a dose of Unasyn here. He felt well enough to go home after that and I discussed the case by phone with Dr. Redd Romero, ENT in [place] and agrees that he should follow-up with them but also recommends following up for an EGD as well. Departure - Departure Disposition: 01 Home, Self Care Clinical Impression: Aspiration pneumonia Qualifiers: Aspiration pneumonia type: unspecified Laterality: left Lung location: lower lobe of lung Qualified Code(s): J69.0 - Pneumonitis due to inhalation of food and vomit Dysphagia Qualifiers: Dysphagia type: unspecified Qualified Code(s): R13.10 - Dysphagia, unspecified Condition: Good Record reviewed to determine appropriate education?: Yes Instructions: Pneumonia Dc Prescriptions: Amoxicillin/Potassium Clav [Amox-Clav 400-57 mg/5 ml Susp] 10 ml PO BID #200 ml Comments: As discussed, the scans are concerning for potentially a mass at the base of the tongue and an aspiration pneumonia. You need to follow-up with ENT as well as GI for scopes of both your throat and esophagus to get this again. Call your primary care physician on Thursday for the GI referral. I did discuss your case with Dr. Redd Romero in [place] and they are happy to see you for the throat scope. Their phone number is [phone]. Call today or Thursday for an appointment.
[2021-07-26 11:35] LABS: BASOPHILS # (AUTO) 0.1 10^3/uL (0.0-0.1); BASOPHILS % (AUTO) 0.8 %; EOSINOPHILS # (AUTO) 0.1 10^3/uL (0.0-0.7); EOSINOPHILS % (AUTO) 1.4 %; HCT - HEMATOCRIT 41.8 % (42.0-52.0); HGB - HEMOGLOBIN 13.4 g/dL (14.0-18.0); LYMPHOCYTES # (AUTO) 1.8 10^3/uL (1.5-3.5); LYMPHOCYTES % (AUTO) 23.6 %; MEAN CORPUSCULAR HEMOGLOBIN 32.4 pg (27.0-31.0); MEAN CORPUSCULAR HGB CONC 32.1 g/dL (32.0-36.0); MEAN PLATELET VOLUME 9.6 fL (7.4-11.4); MONOCYTES # (AUTO) 0.6 10^3/uL (0.0-1.0); MONOCYTES % (AUTO) 7.2 %; NEUTROPHILS # (AUTO) 5.1 10^3/uL (1.5-6.6); NEUTROPHILS % (AUTO) 66.9 %; PLT - PLATELET COUNT 349 10^3/uL (130-450); RED BLOOD COUNT 4.14 10^6/uL (4.70-6.10); RED CELL DISTRIBUTION WIDTH 13.1 % (12.0-15.0); WHITE BLOOD COUNT 7.7 x10^3/uL (4.8-10.8)
[2021-07-26 11:47] LABS: ALBUMIN 3.9 g/dL (3.2-5.5); ALBUMIN/GLOBULIN RATIO 0.9 (1.0-2.2); BILIRUBIN,TOTAL 0.7 mg/dL (0.2-1.0); CALCIUM 9.9 mg/dL (8.5-10.3); CREATININE 1.3 mg/dL (0.6-1.2); MAGNESIUM 1.9 mg/dL (1.7-2.8); TOTAL PROTEIN 8.2 g/dL (6.7-8.2)
--- NOTE | 2021-07-26 12:21 | CT Report ---
PROCEDURE: CHEST WO INDICATIONS: cough/can't swallow TECHNIQUE: Noncontrast 1mm axial images were acquired from the pulmonary apices to the posterior costophrenic an gles. Axial 5 mm soft tissue kernel reconstructions were performed as well as 8 mm axial MIP and cor onal and sagittal 5 mm reformations. For radiation dose reduction, the following was used: automate d exposure control, adjustment of mA and/or kV according to patient size. COMPARISON: CT neck 07/26/2021, CT chest 08/19/2019 FINDINGS: Image quality: Excellent. Lungs and pleura: 3 mm groundglass nodules noted within the right upper lobe on series 4 image 133. 3 mm nodular focus is noted within the right upper lobe on series 4 image 131, new compared to prior e xam. Punctate nodule is present in the right upper lobe on series 4 image 147, new compared to prior exam. 2 mm nodule is present in the anterior aspect of the right upper lobe series 4 image 92. 4 mm r ight lateral lower lobe nodule series 4 image 267 is unchanged. There is a persistent 6 mm anterior l eft upper lobe pleural-based focus of groundglass opacity on series 4 image 114, unchanged. The left lower lobe demonstrates multiple scattered nodules new compared to prior exam. No pleural effusions or pneumothorax. Central and peripheral airways are patent and normal in calibe r. Mediastinum: Heart size is normal. Minimal pericardial effusion. No mediastinal adenopathy by size criteria. Thoracic aorta and central pulmonary arteries are normal in size. Esophagus is normal in caliber. Mild to moderate hiatal hernia. Bones and chest wall: No suspicious bony lesions. No vertebral body compression fractures. No axil nikko or supraclavicular adenopathy by size criteria. The thyroid is normal in size and there are no incidental findings. Abdomen: Simple left cyst with nonobstructing renal calcifications. Visualized upper abdominal solid organs and bowel loops appear normal in the absence of contrast. IMPRESSION: Scattered appearance of subcentimeter pulmonary nodules as described above, with several appearing ne w compared to prior exam. There overall nonspecific and recommend interval follow-up as below. Multiple nodules within the left lower lobe in appearance overall suggestive of infection or inflamma tion including atypical etiologies such as fungal or mycobacterial. Recommend interval follow-up afte r appropriate therapy to document resolution. Hiatal hernia. Fleischner Society criteria for SOLID lung nodule followup. Nodule size (mm) *<6 *Low-risk patient: No follow-up needed *High-risk patient: Optional CT at 12 months; if no change, no further follow-up *6-8 *Low-risk patient: Initial follow-up CT at 6-12 months, then optional CT at 18-24 months. *High-risk patient: Initial follow-up CT at CT at 6-[address] 18-24 months. *>8 single nodule *Low-risk patient: CT, PET or biopsy at 3 months. *High-risk patient: Same as for low-risk pts. *>8 multiple nodules *Low-risk patient: CT at 3-6 months, then optional CT at 18-24 months *High-risk patient: CT at 3-6 months, then CT at 18-24 months CLINICAL RECOMMENDATION STATEMENTS: In patients <35 years with an ITN detected on CT, MRI, or extrathyroidal ultrasound, the Committee re commends further evaluation with dedicated thyroid ultrasound if the nodule is "e1 cm and has no susp icious imaging features, and if the patient has normal life expectancy. In patients "e35 years with an ITN detected on CT, MRI, or extrathyroidal ultrasound, the Committee r ecommends further evaluation with dedicated thyroid ultrasound if the nodule is "e1.5 cm and has no s uspicious imaging features, and if the patient has normal life expectancy. (ACR, 2014) Reviewed by: Kelly Baker MD on 07/26/2021 12:19 PM PDT Approved by: Kelly Baker MD on 07/26/2021 12:19 PM PDT Station ID: [id number]
[2021-07-26] MEDS ORDERED: AMPICILLIN/SULBACTAM 3 GM in SODIUM CHLORIDE 0.9% MINIBAG 100 ML IV STA (12:38)
--- NOTE | 2021-07-26 13:00 | CT Report ---
PROCEDURE: SOFT TISSUE NECK WO INDICATIONS: cough/can't swallow TECHNIQUE: Non-contrast 3.0 mm axial sections acquired from the sella to the aortic arch. Additiona l oblique axial 3.0 mm sections acquired through the pharynx. 3 mm thick coronal reformats were gene rated. For radiation dose reduction, the following was used: automated exposure control, adjustment of mA and/or kV according to patient size. COMPARISON: CT chest 07/20/2019, 07/26/2021 FINDINGS: Image quality: Excellent. Lymph nodes: No enlarged lymph nodes seen throughout the neck. Vessels: Non-opacified vessels appear normal in caliber. Neck spaces: Evaluation for mucosal lesions is markedly limited secondary to lack of IV contrast. How ever, there is marked fatty atrophy of the tongue compared to 2020 particularly in the left lateral a nd posterior aspect. There is asymmetrical undulation at the left base of tongue, which was present i n 2020 and has become more pronounced given superimposed atrophy. There is narrowing of the airway at the posterior oropharynx extending to the suprahyoid region. There is airway narrowing also at the l evel of the vocal cords with the right cord extending into the midline. This area was not included wi thin the [id number] on prior exam. Glands: The parotid and submandibular glands appear normal, without stones. The thyroid is normal i n size and there are no incidental findings. Miscellaneous: Lung apices appear clear. Superficial soft tissues appear normal. There has been le ft zygomatic surgical fixation as well as partial left temporal craniotomy with areas of left tempora l lobe encephalomalacia likely related to prior trauma and/or ischemia. Additionally, as identified on prior exam there is an erosive process within the left skull base, rel atively stable compared to prior exam. Mastoid air cells on the left are fluid opacified. There are a reas of scalloped lucency within the posterior calvarium which has been present since prior exam. Low -attenuation focus is present within the posterior fossa of CSF signal intensity, unchanged. IMPRESSION: Asymmetric undulation at the left posterior base of tongue which has become more prominent compared t o prior exam as well as significant interval fatty infiltration and atrophy of the tongue. There is a fullness of the right vocal cord extending to the midline which is more pronounced compared to prior exam. 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 Overall constellation of findings are most suggestive of malignancy with uncertain site of primary versus po ssible secondary effect such as denervation. Direct ENT visualization of the base of tongue as well a s vocal cords is recommended. In addition, further characterization of the skull base lesion is recom mended with CT neck or MR neck with contrast. 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 Focal areas of lucency within the posterior calvarium which can be caused by arachnoid granulations. However, given the above findings, lytic lucencies of more aggressive etiology such as malignancy chey uld be considered. CLINICAL RECOMMENDATION STATEMENTS: In patients <35 years with an ITN detected on CT, MRI, or extrathyroidal ultrasound, the Committee re commends further evaluation with dedicated thyroid ultrasound if the nodule is "e1 cm and has no susp icious imaging features, and if the patient has normal life expectancy. In patients "e35 years with an ITN detected on CT, MRI, or extrathyroidal ultrasound, the Committee r ecommends further evaluation with dedicated thyroid ultrasound if the nodule is "e1.5 cm and has no s uspicious imaging features, and if the patient has normal life expectancy. (ACR, 2014) Reviewed by: Kelly Baker MD on 07/26/2021 12:59 PM PDT Approved by: Kelly Baker MD on 07/26/2021 12:59 PM PDT Station ID: [id number]
[2021-07-26 14:02] VITALS: BP 159/63
== END 2021-07-26 14:16 | disposition home or self-care (01) ==
LOC: ED 10:54
DX: J69.0 Pneumonitis due to inhalation of food and vomit (principal); R13.10 Dysphagia, unspecified; E11.9 Type 2 diabetes mellitus without complications; Z79.84 Long term (current) use of oral hypoglycemic drugs
CPT/HCPCS: 36415; 80053; 83690; 83735; 85025; 96365; 99283

== ENCOUNTER 2021-08-11 12:55 | Emergency (ER) | payer MEDICARE, OTHER ==
[2021-08-11] MEDS ORDERED: SODIUM CHLORIDE 0.9% 1,000 ML IV STA ×2 (13:16→14:27)
--- OUTSIDE RECORDS SUMMARY | 2021-08-11 13:20 | EXTERNAL MEDICAL SUMMARY RPT | Continuity of Care Document ---
:1935 Author Organization [facility] Address [address] [id number] Phone Allergies No information. Encounters No information. Functional Status No information. Immunizations No information. Medications No information. Problems No information. Procedures date description facility [id number] [facility] [id number] [facility] [id number] [facility] Results/Labs test date author facility value unit interpret ation Result panel 1 (unknown) (no (unknown) (unknown) (no value) (units (unk nown) date) unknown) (unknown) (no (unknown) (unknown) (no value) (units (unk nown) date) unknown) (unknown) (no (unknown) (unknown) [address] [place] [address] (units (unknown) date) unknown) (unknown) (no (unknown) (unknown) [place], [place] (units ( unknown) date) [id number] unknown) (unknown) (no (unknown) (unknown) CT Scan Report (units (unknown) date) unknown) (unknown) (no (unknown) (unknown) [facility] (units (unknown) date) unknown) (unknown) (no (unknown) (unknown) Signed (units (unkno wn) date) unknown) (unknown) (no (unknown) (unknown) (no value) (units (unk nown) date) unknown) (unknown) (no (unknown) (unknown) 07/03/21 (units (unkno wn) date) unknown) (unknown) (no (unknown) (unknown) 1. (units (unkno wn) date) Reticulonodular unknown) density within the left lung base, suggestive of (unknown) (no (unknown) (unknown) 2. Hiatal hernia. (units (unknown) date) unknown) (unknown) (no (unknown) (unknown) 3. Coronary (units (un known) date) artery disease. unknown) (unknown) (no (unknown) (unknown) 4. Increased (units (u nknown) date) right lung base unknown) nodule. Initial further assessment with PET-CT (unknown) (no (unknown) (unknown) 5. Nonobstructing (units (unknown) date) bilateral renal unknown) calculi. (unknown) (no (unknown) (unknown) 6. (units (unkno wn) date) Cholelithiasis. unknown) No evidence of cholecystitis. (unknown) (no (unknown) (unknown) 7. New trace (units (u nknown) date) pericardial unknown) effusion. (unknown) (no (unknown) (unknown) ABDOMEN: (units (unkno wn) date) unknown) (unknown) (no (unknown) (unknown) After the (units (unkn own) date) administration of unknown) oral contrast, 5 mm thick sections acquired from (unknown) (no (unknown) (unknown) Approved by: (units (u nknown) date) Kym Galloway M.D. unknown) on 07/03/2021 at 9:42 (unknown) (no (unknown) (unknown) Both (units (unkno wn) date) unknown) (unknown) (no (unknown) (unknown) CHEST: (units (unkno wn) date) unknown) (unknown) (no (unknown) (unknown) COMPARISON: (units (un known) date) [facility], unknown) CT, CT CHEST WO [facility], 11/09/2020, 13:29. (unknown) (no (unknown) (unknown) Chest wall: No (units (unknown) date) axillary or unknown) supraclavicular adenopathy by size criteria. (unknown) (no (unknown) (unknown) Dictated by: (units (u nknown) date) Kym Galloway M.D. unknown) on 07/03/2021 at 9:37 (unknown) (no (unknown) (unknown) FINDINGS: (units (unkn own) date) unknown) (unknown) (no (unknown) (unknown) IMPRESSION: (units (un known) date) unknown) (unknown) (no (unknown) (unknown) INDICATIONS: (units (u nknown) date) Pain in unknown) throat;Aphagia;Abn ormal weight loss (unknown) (no (unknown) (unknown) Image quality: (units (unknown) date) Excellent. unknown) (unknown) (no (unknown) (unknown) Lungs and pleura: (units (unknown) date) No acute unknown) pulmonary opacities. The previously seen (unknown) (no (unknown) (unknown) Mediastinum: (units (u nknown) date) Heart size is unknown) normal. Trace pericardial effusion, new since the (unknown) (no (unknown) (unknown) Mild (units (unkno wn) date) reticulonodular unknown) density within the left lung base posteriorly. Calcified (unknown) (no (unknown) (unknown) Miscellaneous: (units (unknown) date) No ventral unknown) hernias. (unknown) (no (unknown) (unknown) No change in (units (u nknown) date) sclerotic focus unknown) within the T10 vertebral body. (unknown) (no (unknown) (unknown) No mediastinal (units (unknown) date) adenopathy by size unknown) criteria. Thoracic aorta and central (unknown) (no (unknown) (unknown) Nodes and (units (unkn own) date) vessels: No unknown) retroperitoneal or mesenteric adenopathy by size (unknown) (no (unknown) (unknown) Pancreas is (units (un known) date) normal in unknown) contours. Spleen is normal in size. No adrenal nodules. (unknown) (no (unknown) (unknown) Peritoneum and (units (unknown) date) bowel: Small and unknown) large bowel loops are normal in caliber and (unknown) (no (unknown) (unknown) Solid organs: (units ( unknown) date) Liver is normal in unknown) size. Gallbladder demonstrates calculi (unknown) (no (unknown) (unknown) TECHNIQUE: (units (unk nown) date) unknown) (unknown) (no (unknown) (unknown) acquired, with (units (unknown) date) additional 7 mm unknown) coronal MIP reformats through the lungs. For (unknown) (no (unknown) (unknown) and inferior vena (units (unknown) date) cava are normal in unknown) caliber. (unknown) (no (unknown) (unknown) and/or kV (units (unkn own) date) according to unknown) patient size. (unknown) (no (unknown) (unknown) arteries are (units (u nknown) date) normal in size. unknown) Esophagus is normal in caliber. No change in (unknown) (no (unknown) (unknown) dose reduction, (units (unknown) date) the following was unknown) used: automated exposure control, adjustment (unknown) (no (unknown) (unknown) examination (units (un known) date) Severe unknown) calcification of the coronary vasculature. No pericardial (unknown) (no (unknown) (unknown) gallbladder lumen (units (unknown) date) without evidence unknown) of wall thickening to indicate (unknown) (no (unknown) (unknown) hernia. (units (unkno wn) date) unknown) (unknown) (no (unknown) (unknown) interpolar (units (unk nown) date) kidney, largest of unknown) which is inferiorly, measuring 19 mm diameter. (unknown) (no (unknown) (unknown) is grossly (units (unk nown) date) unremarkable on unknown) noncontrast imaging . (unknown) (no (unknown) (unknown) is recommended. (units (unknown) date) unknown) (unknown) (no (unknown) (unknown) kidneys are (units (un known) date) normal in size. unknown) There are multiple nonobstructing calculi within (unknown) (no (unknown) (unknown) measures 16 mm (units (unknown) date) diameter within unknown) the renal pelvis. No definite hydronephrosis. (unknown) (no (unknown) (unknown) mm diameter. (units (u nknown) date) Mild bibasilar unknown) scarring is present. Mild biapical scarring is (unknown) (no (unknown) (unknown) nonobstructing (units (unknown) date) calculi within the unknown) left kidney are present, as before, largest (unknown) (no (unknown) (unknown) pneumothorax. (units ( unknown) date) Central and unknown) peripheral airways are patent and normal in caliber. (unknown) (no (unknown) (unknown) pulmonary apices (units (unknown) date) to the iliac unknown) crests. 5 mm thick coronal and sagittal (unknown) (no (unknown) (unknown) thickness. No (units (unknown) date) free fluid or air. unknown) (unknown) (no (unknown) (unknown) within the right (units (unknown) date) lung base unknown) anterolaterally has increased in size, currently (unknown) (no (unknown) (unknown) within the (units (unk nown) date) superior aspect of unknown) the right major fissure. No pleural effusions or (unknown) (no (unknown) (unknown) [id number] (units (unkno wn) date) unknown) (unknown) (no (unknown) (unknown) Accession Number: (units (unknown) date) [id number] unknown) (unknown) (no (unknown) (unknown) Age/Sex: 85 / M (units (unknown) date) Date of Service: unknown) (unknown) (no (unknown) (unknown) : 1935 (units (unknown) date) Acct:[id number] unknown) (unknown) (no (unknown) (unknown) Loc: CT (units (unkno wn) date) unknown) (unknown) (no (unknown) (unknown) Multiple (units (unkno wn) date) unknown) (unknown) (no (unknown) (unknown) Ordering (units (unkno wn) date) Provider: unknown) Steven Pinedo MD (unknown) (no (unknown) (unknown) PROCEDURE: CT (units (unknown) date) CHEST ABDOMEN WO unknown) CON (unknown) (no (unknown) (unknown) Patient: (units (unkno wn) date) Vu Elmore R unknown) MR#: [id number] (unknown) (no (unknown) (unknown) Procedure: CT (units ( unknown) date) chest abdomen wo unknown) con (unknown) (no (unknown) (unknown) Thyroid gland (units ( unknown) date) unknown) (unknown) (no (unknown) (unknown) cholecystitis. . (units (unknown) date) unknown) (unknown) (no (unknown) (unknown) criteria. Aorta (units (unknown) date) unknown) (unknown) (no (unknown) (unknown) effusion. (units (unkn own) date) unknown) (unknown) (no (unknown) (unknown) examination (units (un known) date) unknown) (unknown) (no (unknown) (unknown) granuloma (units (unkn own) date) unknown) (unknown) (no (unknown) (unknown) large hiatal (units (u nknown) date) unknown) (unknown) (no (unknown) (unknown) measuring 7 (units (un known) date) unknown) (unknown) (no (unknown) (unknown) of mA (units (unkno wn) date) unknown) (unknown) (no (unknown) (unknown) of which (units (unkno wn) date) unknown) (unknown) (no (unknown) (unknown) pneumonitis. (units (u nknown) date) unknown) (unknown) (no (unknown) (unknown) present. (units (unkno wn) date) unknown) (unknown) (no (unknown) (unknown) prior (units (unkno wn) date) unknown) (unknown) (no (unknown) (unknown) pulmonary (units (unkn own) date) unknown) (unknown) (no (unknown) (unknown) radiation (units (unkn own) date) unknown) (unknown) (no (unknown) (unknown) reformats (units (unkn own) date) unknown) (unknown) (no (unknown) (unknown) subpleural nodule (units (unknown) date) unknown) (unknown) (no (unknown) (unknown) the (units (unkno wn) date) unknown) (unknown) (no (unknown) (unknown) the right (units (unkn own) date) unknown) (unknown) (no (unknown) (unknown) wall (units (unkno wn) date) unknown) (unknown) (no (unknown) (unknown) within the (units (unk nown) date) unknown) Result panel 2 (unknown) (no (unknown) (unknown) (no value) (units (unk nown) date) unknown) (unknown) (no (unknown) (unknown) (no value) (units (unk nown) date) unknown) (unknown) (no (unknown) (unknown) [address] [place] [address] (units (unknown) date) unknown) (unknown) (no (unknown) (unknown) [place] [address] (unit s (unknown) date) unknown) (unknown) (no (unknown) (unknown) [facility] (units (unknown) date) unknown) (unknown) (no (unknown) (unknown) Nuclear [facility] (units (unknown) date) Report unknown) (unknown) (no (unknown) (unknown) Signed (units (unkno wn) date) unknown) (unknown) (no (unknown) (unknown) (no value) (units (unk nown) date) unknown) (unknown) (no (unknown) (unknown) (maximum SUV 1.0), (units (unknown) date) likely benign. unknown) (unknown) (no (unknown) (unknown) 07/24/21 (units (unkno wn) date) unknown) (unknown) (no (unknown) (unknown) 1. Intense abnormal (unit s (unknown) date) uptake in distal unknown) esophagus consistent with esophageal (unknown) (no (unknown) (unknown) 11/09/2020, 13:29. (units (unknown) date) [facility], CT, unknown) CT CHEST ABDOMEN WO CON, 07/03/2021, (unknown) (no (unknown) (unknown) 2. Moderate-sized (units (unknown) date) hiatal hernia. unknown) Focal uptake in the posterior wall of the (unknown) (no (unknown) (unknown) 3. Mildly increased (unit s (unknown) date) FDG activity in the unknown) left hilum is indeterminate but (unknown) (no (unknown) (unknown) 4. There are mildly (unit s (unknown) date) enlarged, mildly unknown) hypermetabolic lymph nodes in upper (unknown) (no (unknown) (unknown) 5. Small right (units (unknown) date) lower lobe lung unknown) nodule demonstrates low FDG uptake likely (unknown) (no (unknown) (unknown) 6. Please see the (units (unknown) date) body of the report unknown) for other nonurgent incidental findings. (unknown) (no (unknown) (unknown) A 1.3 cm left (units ( unknown) date) para-aortic lymph unknown) node is identified (series 4, image 186), (unknown) (no (unknown) (unknown) Abdomen and pelvis: (unit s (unknown) date) There is a 1.5 x unknown) 1.2 cm gastrohepatic ligament lymph node (unknown) (no (unknown) (unknown) After intravenous (units (unknown) date) administration of unknown) F-18 fluoro-deoxyglucose (FDG), noncontrast (unknown) (no (unknown) (unknown) Aorta and inferior (units (unknown) date) vena cava are normal unknown) in size. Severe atherosclerosis. No (unknown) (no (unknown) (unknown) Approved by: Shy (units (unknown) date) Alejandro Parker on unknown) 07/25/2021 at 9:22 (unknown) (no (unknown) (unknown) Bones: No abnormal (unit s (unknown) date) osseous tracer unknown) uptake. No lytic or blastic bony lesions. (unknown) (no (unknown) (unknown) COMPARISON: (units (un known) date) [facility], CT, unknown) CT SOFT TISSUE NECK WO CON, 12/06/2020, (unknown) (no (unknown) (unknown) Dictated by: Shy Morenounits (unknown) date) Alejandro Parker on unknown) 07/24/2021 at 13:22 (unknown) (no (unknown) (unknown) FINDINGS: (units (unkn own) date) unknown) (unknown) (no (unknown) (unknown) Gallbladder (units (un known) date) contains gallstones. unknown) (unknown) (no (unknown) (unknown) Head and neck: No (units (unknown) date) soft tissue masses unknown) in the neck. No enlarged cervical or (unknown) (no (unknown) (unknown) [facility], [place], [place] (units (unknown) date) BARIUM SWALLOW, unknown) 12/06/2020, 8:25. [facility], CT, CT (unknown) (no (unknown) (unknown) IMPRESSION: (units (un known) date) unknown) (unknown) (no (unknown) (unknown) INDICATIONS: LUNG (unit s (unknown) date) NODULE unknown) (unknown) (no (unknown) (unknown) Kidneys are normal (units (unknown) date) in size, without unknown) hydronephrosis. There are renal cysts (unknown) (no (unknown) (unknown) No acute pulmonary (units (unknown) date) opacities. No unknown) pleural effusions or pneumothorax. Heart (unknown) (no (unknown) (unknown) Pancreas is normal (units (unknown) date) in morphology. No unknown) adrenal nodules. (unknown) (no (unknown) (unknown) RADIOPHARMACEUTICAL (unit s (unknown) date) : 10.5 mCi F-18 unknown) fluorodeoxyglucose IV. (unknown) (no (unknown) (unknown) Recommend EGD and (units (unknown) date) tissue diagnosis. unknown) (unknown) (no (unknown) (unknown) Small and large (units (unknown) date) intestines are unknown) normal in caliber. Extensive colonic (unknown) (no (unknown) (unknown) TECHNIQUE: (units (unk nown) date) unknown) (unknown) (no (unknown) (unknown) There are multiple (units (unknown) date) nonobstructive renal unknown) stones bilaterally. No ureteral (unknown) (no (unknown) (unknown) There is a 1.3 cm (units (unknown) date) aortocaval lymph unknown) node (series 4, image 186), demonstrating (unknown) (no (unknown) (unknown) There is a (units (unk nown) date) moderate-sized unknown) hiatal hernia. A focal uptake is seen in the (unknown) (no (unknown) (unknown) There is (units (unkno wn) date) heterogeneous unknown) hepatic tracer uptake. Liver is normal in size, without (unknown) (no (unknown) (unknown) There is intense (units (unknown) date) abnormal uptake in unknown) the distal esophagus consistent with (unknown) (no (unknown) (unknown) There is mildly (units (unknown) date) increased uptake in unknown) the left hilum demonstrating maximum SUV (unknown) (no (unknown) (unknown) Thorax: Small (units (unknown) date) subcentimeter right unknown) lower lobe nodule demonstrates low level FDG (unknown) (no (unknown) (unknown) calcifications (units (unknown) date) bilaterally. unknown) (unknown) (no (unknown) (unknown) cancer. The (units (u nknown) date) proximal esophagus unknown) is mildly distended, suggesting mild degree of (unknown) (no (unknown) (unknown) cardia is (units (unkn own) date) consistent with unknown) neoplasm. (unknown) (no (unknown) (unknown) focal uptake is (units (unknown) date) projecting to the unknown) descending colon (maximum SUV 4.5), probably (unknown) (no (unknown) (unknown) glands appear (units ( unknown) date) normal. Sinuses and unknown) mastoids are clear. Severe carotid artery (unknown) (no (unknown) (unknown) glucose level as (units (unknown) date) measured by unknown) glucometer was 122 mg/dl. The area imaged spanned (unknown) (no (unknown) (unknown) hydronephrosis. (units (unknown) date) There is a 19 x 15 unknown) mm stone within the dependent bladder. (unknown) (no (unknown) (unknown) image 157 (units (unkn own) date) demonstrating unknown) increased FDG uptake (maximum SUV 4.7) consistent with (unknown) (no (unknown) (unknown) increased FDG (units ( unknown) date) activity with unknown) maximum SUV 3.8 suspicious for metastasis. (unknown) (no (unknown) (unknown) increased FDG (units ( unknown) date) uptake with maximum unknown) SUV 4.5, suspicious for metastasis. (unknown) (no (unknown) (unknown) indeterminate but (units (unknown) date) suspicious for unknown) metastasis. (unknown) (no (unknown) (unknown) is slightly (units (un known) date) thickened. Prostate unknown) is enlarged. (unknown) (no (unknown) (unknown) masses. The spleen (unit s (unknown) date) is normal in size. unknown) (unknown) (no (unknown) (unknown) metastasis. (units (un known) date) unknown) (unknown) (no (unknown) (unknown) mild diverticular (units (unknown) date) inflammation. A unknown) focal uptake in the pelvis projecting to a (unknown) (no (unknown) (unknown) normal. Small (units (unknown) date) pericardial unknown) effusion. Severe coronary artery calcifications. (unknown) (no (unknown) (unknown) obstruction. (units (u nknown) date) unknown) (unknown) (no (unknown) (unknown) or air. No pelvic (units (unknown) date) or inguinal unknown) adenopathy. (unknown) (no (unknown) (unknown) overlapping (units (un known) date) emission PET images unknown) was then obtained. The patient's pretest (unknown) (no (unknown) (unknown) skull base to the (units (unknown) date) upper thighs. unknown) (unknown) (no (unknown) (unknown) small bowel (units (un known) date) (maximum SUV 4.7), unknown) indeterminate in nature. More diffuse uptake is (unknown) (no (unknown) (unknown) supraclavicular (units (unknown) date) lymph nodes; no unknown) abnormal kadie tracer uptake. Salivary and (unknown) (no (unknown) (unknown) suspicious for (units (unknown) date) metastasis. unknown) (unknown) (no (unknown) (unknown) the ascending (units ( unknown) date) colon, nonspecific. 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 (unknown) (no (unknown) (unknown) were obtained for (units (unknown) date) attenuation unknown) correction and anatomic localization. A series (unknown) (no (unknown) (unknown) (series 4, (units (unk nown) date) unknown) (unknown) (no (unknown) (unknown) [id number] (units (unkno wn) date) unknown) (unknown) (no (unknown) (unknown) 3.7, (units (unkno wn) date) unknown) (unknown) (no (unknown) (unknown) 8:27. [place] (units ( unknown) date) unknown) (unknown) (no (unknown) (unknown) 9:07. (units (unkno wn) date) unknown) (unknown) (no (unknown) (unknown) Accession Number: (units (unknown) date) [id number] unknown) (unknown) (no (unknown) (unknown) Age/Sex: 85 / M (units (unknown) date) Date of Service: unknown) (unknown) (no (unknown) (unknown) Bladder wall (units (u nknown) date) unknown) (unknown) (no (unknown) (unknown) CHEST WO CON, (units ( unknown) date) unknown) (unknown) (no (unknown) (unknown) CT images (units (unkn own) date) unknown) (unknown) (no (unknown) (unknown) : 1935 (units (unknown) date) Acct:[id number] unknown) (unknown) (no (unknown) (unknown) Loc: [facility] (units (unkn own) date) unknown) (unknown) (no (unknown) (unknown) Ordering Provider: (units (unknown) date) Steven Pinedo MD unknown) (unknown) (no (unknown) (unknown) PROCEDURE: NM PET (unit s (unknown) date) CT FUSION SKULL 2 unknown) THIGH (unknown) (no (unknown) (unknown) Patient: (units (unkno wn) date) Vu Elmore unknown) MR#: [id number] (unknown) (no (unknown) (unknown) Procedure: NM PET (units (unknown) date) CT fusion skull 2 unknown) thigh (unknown) (no (unknown) (unknown) abdomen, (units (unkno wn) date) unknown) (unknown) (no (unknown) (unknown) benign. (units (unkno wn) date) unknown) (unknown) (no (unknown) (unknown) bilaterally. (units (u nknown) date) unknown) (unknown) (no (unknown) (unknown) cancer. (units (unkno wn) date) unknown) (unknown) (no (unknown) (unknown) demonstrating (units ( unknown) date) unknown) (unknown) (no (unknown) (unknown) diverticulosis. A (units (unknown) date) unknown) (unknown) (no (unknown) (unknown) esophageal (units (unk nown) date) unknown) (unknown) (no (unknown) (unknown) fasting blood (units ( unknown) date) unknown) (unknown) (no (unknown) (unknown) focal (units (unkno wn) date) unknown) (unknown) (no (unknown) (unknown) free fluid (units (unk nown) date) unknown) (unknown) (no (unknown) (unknown) from the (units (unkno wn) date) unknown) (unknown) (no (unknown) (unknown) gastric (units (unkno wn) date) unknown) (unknown) (no (unknown) (unknown) loop of (units (unkno wn) date) unknown) (unknown) (no (unknown) (unknown) mildly (units (unkno wn) date) unknown) (unknown) (no (unknown) (unknown) noted in (units (unkno wn) date) unknown) (unknown) (no (unknown) (unknown) of (units (unkno wn) date) unknown) (unknown) (no (unknown) (unknown) posterior wall of (units (unknown) date) unknown) (unknown) (no (unknown) (unknown) related to (units (unk nown) date) unknown) (unknown) (no (unknown) (unknown) size is (units (unkno wn) date) unknown) (unknown) (no (unknown) (unknown) stones. No (units (un known) date) unknown) (unknown) (no (unknown) (unknown) suspicious for (units (unknown) date) unknown) (unknown) (no (unknown) (unknown) thyroid (units (unkno wn) date) unknown) (unknown) (no (unknown) (unknown) uptake (units (unkno wn) date) unknown) Result panel 3 (unknown) (no (unknown) (unknown) (no value) (units (unk nown) date) unknown) (unknown) (no (unknown) (unknown) (no value) (units (unk nown) date) unknown) (unknown) (no (unknown) (unknown) 08/09/21 (units (unkno wn) date) unknown) (unknown) (no (unknown) (unknown) 09:27 (units (unkno wn) date) unknown) (unknown) (no (unknown) (unknown) [place], [place] (units ( unknown) date) [id number] unknown) (unknown) (no (unknown) (unknown) Draft (units (unkno wn) date) unknown) (unknown) (no (unknown) (unknown) [facility] (units (unknown) date) unknown) (unknown) (no (unknown) (unknown) Surgery Office (units (unknown) date) Visit unknown) (unknown) (no (unknown) (unknown) itching, hives (units (unknown) date) unknown) (unknown) (no (unknown) (unknown) (no value) (units (unk nown) date) unknown) (unknown) (no (unknown) (unknown) [id number] (units (unkno wn) date) unknown) (unknown) (no (unknown) (unknown) 08/09/21 (units (unkno wn) date) unknown) (unknown) (no (unknown) (unknown) Age/Sex: 85 / M (units (unknown) date) Date of Service: unknown) (unknown) (no (unknown) (unknown) Allergies (units (unkn own) date) unknown) (unknown) (no (unknown) (unknown) Attending Dr: (units ( unknown) date) Maik Fowler MD unknown) (unknown) (no (unknown) (unknown) BMI 17.3 (units (un known) date) unknown) (unknown) (no (unknown) (unknown) BP 110/70 (units (u nknown) date) unknown) (unknown) (no (unknown) (unknown) Blood Pressure (units (unknown) date) Location Lt unknown) brachial (unknown) (no (unknown) (unknown) : 1935 (units (unknown) date) Acct:[id number] unknown) (unknown) (no (unknown) (unknown) Dept at (units (unkno wn) date) . unknown) (unknown) (no (unknown) (unknown) Diabetes type 2, (units (unknown) date) controlled unknown) (unknown) (no (unknown) (unknown) Documented By: (units (unknown) date) Maik Fowler MD unknown) 08/09/21 0925 (unknown) (no (unknown) (unknown) Essential tremor (units (unknown) date) unknown) (unknown) (no (unknown) (unknown) Family History (units (unknown) date) (Reviewed 08/09/21 unknown) @ 09:28 by Stephany Bermeo MA) (unknown) (no (unknown) (unknown) Father Diabetes (units (unknown) date) mellitus unknown) (unknown) (no (unknown) (unknown) Gastroesophageal (units (unknown) date) reflux disease unknown) (unknown) (no (unknown) (unknown) Height 6 ft (units (unknown) date) unknown) (unknown) (no (unknown) (unknown) History of (units (unk nown) date) hydrocelectomy unknown) (12/10/07) (unknown) (no (unknown) (unknown) 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 unknown) (unknown) (no (unknown) (unknown) Hx of bladder (units ( unknown) date) cancer unknown) (unknown) (no (unknown) (unknown) Hx of craniotomy (units (unknown) date) unknown) (unknown) (no (unknown) (unknown) Hx of hernia (units (u nknown) date) repair (12/10/07) unknown) (unknown) (no (unknown) (unknown) Hx of renal (units (un known) date) calculi unknown) (unknown) (no (unknown) (unknown) Hypertension (units (u nknown) date) unknown) (unknown) (no (unknown) (unknown) Intake (units (unkno wn) date) unknown) (unknown) (no (unknown) (unknown) Is patient in (units ( unknown) date) pain?: Yes unknown) (unknown) (no (unknown) (unknown) Loc: [facility] (units (unkno wn) date) unknown) (unknown) (no (unknown) (unknown) Medical History (units (unknown) date) (Reviewed 08/09/21 unknown) @ 09:28 by Stephany Bermeo MA) (unknown) (no (unknown) (unknown) Oxygen Delivery (units (unknown) date) Method room air unknown) (unknown) (no (unknown) (unknown) PFSH (units (unkno wn) date) unknown) (unknown) (no (unknown) (unknown) Pain Location (units ( unknown) date) unknown) (unknown) (no (unknown) (unknown) Pain Scale (units (unk nown) date) unknown) (unknown) (no (unknown) (unknown) Pain location(s):: (units (unknown) date) 04/18 unknown) (unknown) (no (unknown) (unknown) Patient: (units (unkno wn) date) Vu Elmore R unknown) MR#: [id number] (unknown) (no (unknown) (unknown) Position (units (unkno wn) date) Sitting unknown) (unknown) (no (unknown) (unknown) Pulse 78 (units (un known) date) unknown) (unknown) (no (unknown) (unknown) Pulse Oximetry (%) (units (unknown) date) 88 L unknown) (unknown) (no (unknown) (unknown) Pulse Source (units (u nknown) date) Monitor unknown) (unknown) (no (unknown) (unknown) Reason For Visit (units (unknown) date) unknown) (unknown) (no (unknown) (unknown) Signed By: (units (unk nown) date) unknown) (unknown) (no (unknown) (unknown) Smoking Status: (units (unknown) date) Never smoker unknown) (unknown) (no (unknown) (unknown) Smoking Status: (units (unknown) date) Never smoker unknown) (unknown) (no (unknown) (unknown) Social History (units (unknown) date) (Reviewed 08/09/21 unknown) @ 09:28 by Stephany Bermeo MA) (unknown) (no (unknown) (unknown) Sulfa (Sulfonamide (units (unknown) date) Antibiotics) unknown) Allergy (Unknown, Verified 08/09/21 09:25) (unknown) (no (unknown) (unknown) Surgical History (units (unknown) date) (Reviewed 08/09/21 unknown) @ 09:28 by Stephany Bermeo MA) (unknown) (no (unknown) (unknown) Temp 95.5 F L (units (unknown) date) unknown) (unknown) (no (unknown) (unknown) Temp Source (units (un known) date) Temporal Artery unknown) Scan (unknown) (no (unknown) (unknown) This note may have (units (unknown) date) been all or unknown) partially generated using voice recognition (unknown) (no (unknown) (unknown) Tobacco Status (units (unknown) date) unknown) (unknown) (no (unknown) (unknown) Visit Reasons: (units (unknown) date) [facility] pt . unknown) 2020/Gastrostomy tube/Urgent [place] (unknown) (no (unknown) (unknown) Vitals (units (unkno wn) date) unknown) (unknown) (no (unknown) (unknown) Weight 128 lb (units (unknown) date) unknown) (unknown) (no (unknown) (unknown) alcohol intake: (units (unknown) date) current unknown) (unknown) (no (unknown) (unknown) have occurred. If (units (unknown) date) there are any unknown) questions, please contact the Medical Records (unknown) (no (unknown) (unknown) household members: (units (unknown) date) none unknown) (unknown) (no (unknown) (unknown) marital status: (units (unknown) date) unknown) (unknown) (no (unknown) (unknown) may occur. (units (unk nown) date) Occasional unknown) wrong-word or 'sound-alike' substitutions may have (unknown) (no (unknown) (unknown) occupational (units (u nknown) date) status: previously unknown) employed (unknown) (no (unknown) (unknown) occurred due to (units (unknown) date) the inherent unknown) limitations of voice recognition software. Please (unknown) (no (unknown) (unknown) read the note (units ( unknown) date) carefully and unknown) recognize, using context, where these substitutions (unknown) (no (unknown) (unknown) software. Although (units (unknown) date) every effort is unknown) made to edit content, trim machine adjuster errors (unknown) (no (unknown) (unknown) substance use (units ( unknown) date) type: does not use unknown) Result panel 4 (unknown) (no (unknown) (unknown) (no value) (units (unk nown) date) unknown) (unknown) (no (unknown) (unknown) (no value) (units (unk nown) date) unknown) (unknown) (no (unknown) (unknown) 08/09/21 (units (unkno wn) date) unknown) (unknown) (no (unknown) (unknown) 09:27 (units (unkno wn) date) unknown) (unknown) (no (unknown) (unknown) [place], [place] (units ( unknown) date) [id number] unknown) (unknown) (no (unknown) (unknown) Draft (units (unkno wn) date) unknown) (unknown) (no (unknown) (unknown) [facility] (units (unknown) date) unknown) (unknown) (no (unknown) (unknown) Surgery Office (units (unknown) date) Visit unknown) (unknown) (no (unknown) (unknown) itching, hives (units (unknown) date) unknown) (unknown) (no (unknown) (unknown) (no value) (units (unk nown) date) unknown) (unknown) (no (unknown) (unknown) [id number] (units (unkno wn) date) unknown) (unknown) (no (unknown) (unknown) 08/09/21 (units (unkno wn) date) unknown) (unknown) (no (unknown) (unknown) 6 weesk no (units (unk nown) date) nutrition unknown) (unknown) (no (unknown) (unknown) Age/Sex: 85 / M (units (unknown) date) Date of Service: unknown) (unknown) (no (unknown) (unknown) Allergies (units (unkn own) date) unknown) (unknown) (no (unknown) (unknown) Attending Dr: (units ( unknown) date) Maik Fowler MD unknown) (unknown) (no (unknown) (unknown) BMI 17.3 (units (un known) date) unknown) (unknown) (no (unknown) (unknown) BP 110/70 (units (u nknown) date) unknown) (unknown) (no (unknown) (unknown) Blood Pressure (units (unknown) date) Location Lt unknown) brachial (unknown) (no (unknown) (unknown) : 1935 (units (unknown) date) Acct:[id number] unknown) (unknown) (no (unknown) (unknown) Dept at (units (unkno wn) date) . unknown) (unknown) (no (unknown) (unknown) Details: (units (unkno wn) date) unknown) (unknown) (no (unknown) (unknown) Diabetes type 2, (units (unknown) date) controlled unknown) (unknown) (no (unknown) (unknown) Documented By: (units (unknown) date) Maik Fowler MD unknown) 08/09/21 0925 (unknown) (no (unknown) (unknown) Essential tremor (units (unknown) date) unknown) (unknown) (no (unknown) (unknown) Family History (units (unknown) date) (Reviewed 08/09/21 unknown) @ 09:28 by Stephany Bermeo MA) (unknown) (no (unknown) (unknown) Father Diabetes (units (unknown) date) mellitus unknown) (unknown) (no (unknown) (unknown) Gastroesophageal (units (unknown) date) reflux disease unknown) (unknown) (no (unknown) (unknown) HPI (units (unkno wn) date) unknown) (unknown) (no (unknown) (unknown) Height 6 ft (units (unknown) date) unknown) (unknown) (no (unknown) (unknown) History of (units (unk nown) date) hydrocelectomy unknown) (12/10/07) (unknown) (no (unknown) (unknown) 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 unknown) (unknown) (no (unknown) (unknown) Hx of bladder (units ( unknown) date) cancer unknown) (unknown) (no (unknown) (unknown) Hx of craniotomy (units (unknown) date) unknown) (unknown) (no (unknown) (unknown) Hx of hernia (units (u nknown) date) repair (12/10/07) unknown) (unknown) (no (unknown) (unknown) Hx of renal (units (un known) date) calculi unknown) (unknown) (no (unknown) (unknown) Hypertension (units (u nknown) date) unknown) (unknown) (no (unknown) (unknown) Intake (units (unkno wn) date) unknown) (unknown) (no (unknown) (unknown) Is patient in (units ( unknown) date) pain?: Yes unknown) (unknown) (no (unknown) (unknown) Loc: [facility] (units (unkno wn) date) unknown) (unknown) (no (unknown) (unknown) Medical History (units (unknown) date) (Reviewed 08/09/21 unknown) @ 09:28 by Stephany Bermeo MA) (unknown) (no (unknown) (unknown) Oxygen Delivery (units (unknown) date) Method room air unknown) (unknown) (no (unknown) (unknown) PFSH (units (unkno wn) date) unknown) (unknown) (no (unknown) (unknown) Pain Location (units ( unknown) date) unknown) (unknown) (no (unknown) (unknown) Pain Scale (units (unk nown) date) unknown) (unknown) (no (unknown) (unknown) Pain location(s):: (units (unknown) date) 04/18 unknown) (unknown) (no (unknown) (unknown) Patient: (units (unkno wn) date) CatarinaVu R unknown) MR#: [id number] (unknown) (no (unknown) (unknown) Position (units (unkno wn) date) Sitting unknown) (unknown) (no (unknown) (unknown) Pulse 78 (units (un known) date) unknown) (unknown) (no (unknown) (unknown) Pulse Oximetry (%) (units (unknown) date) 88 L unknown) (unknown) (no (unknown) (unknown) Pulse Source (units (u nknown) date) Monitor unknown) (unknown) (no (unknown) (unknown) Reason For Visit (units (unknown) date) unknown) (unknown) (no (unknown) (unknown) Signed By: (units (unk nown) date) unknown) (unknown) (no (unknown) (unknown) Smoking Status: (units (unknown) date) Never smoker unknown) (unknown) (no (unknown) (unknown) Smoking Status: (units (unknown) date) Never smoker unknown) (unknown) (no (unknown) (unknown) Social History (units (unknown) date) (Reviewed 08/09/21 unknown) @ 09:28 by Stephany Bermeo MA) (unknown) (no (unknown) (unknown) Sulfa (Sulfonamide (units (unknown) date) Antibiotics) unknown) Allergy (Unknown, Verified 08/09/21 09:25) (unknown) (no (unknown) (unknown) Surgical History (units (unknown) date) (Reviewed 08/09/21 unknown) @ 09:28 by Stephany Bermeo MA) (unknown) (no (unknown) (unknown) Temp 95.5 F L (units (unknown) date) unknown) (unknown) (no (unknown) (unknown) Temp Source (units (un known) date) Temporal Artery unknown) Scan (unknown) (no (unknown) (unknown) This note may have (units (unknown) date) been all or unknown) partially generated using voice recognition (unknown) (no (unknown) (unknown) Tobacco Status (units (unknown) date) unknown) (unknown) (no (unknown) (unknown) Visit Reasons: (units (unknown) date) [facility] pt . 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 If (units (unknown) date) there are any unknown) questions, please contact the Medical Records (unknown) (no (unknown) (unknown) household members: (units (unknown) date) none unknown) (unknown) (no (unknown) (unknown) marital status: (units (unknown) date) unknown) (unknown) (no (unknown) (unknown) may occur. (units (unk nown) date) Occasional unknown) wrong-word or 'sound-alike' substitutions may have (unknown) (no (unknown) (unknown) needs open (units (unk nown) date) gastrostomy tube no unknown) prior abdominal surgery. (unknown) (no (unknown) (unknown) occupational (units (u nknown) date) status: previously unknown) employed (unknown) (no (unknown) (unknown) occurred due to (units (unknown) date) the inherent unknown) limitations of voice recognition software. Please (unknown) (no (unknown) (unknown) read the note (units ( unknown) date) carefully and unknown) recognize, using context, where these substitutions (unknown) (no (unknown) (unknown) software. Although (units (unknown) date) every effort is unknown) made to edit content, trim machine adjuster errors (unknown) (no (unknown) (unknown) substance use (units ( unknown) date) type: does not use unknown) Result panel 5 (unknown) (no (unknown) (unknown) (no value) (units (unk nown) date) unknown) (unknown) (no (unknown) (unknown) Qualifiers: (units (un known) date) unknown) (unknown) (no (unknown) (unknown) Status: Acute (units ( unknown) date) unknown) (unknown) (no (unknown) (unknown) (no value) (units (unk nown) date) unknown) (unknown) (no (unknown) (unknown) 08/09/21 (units (unkno wn) date) unknown) (unknown) (no (unknown) (unknown) 08/10/21 0816 (units ( unknown) date) unknown) (unknown) (no (unknown) (unknown) 09:27 (units (unkno wn) date) unknown) (unknown) (no (unknown) (unknown) [place], [place] (units ( unknown) date) [id number] unknown) (unknown) (no (unknown) (unknown) [facility] (units (unknown) date) unknown) (unknown) (no (unknown) (unknown) 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) location: unspecified location (unknown) (no (unknown) (unknown) Signed (units (unkno wn) date) unknown) (unknown) (no (unknown) (unknown) Surgery Office (units (unknown) date) Visit unknown) (unknown) (no (unknown) (unknown) itching, hives (units (unknown) date) unknown) (unknown) (no (unknown) (unknown) (no value) (units (unk nown) date) unknown) (unknown) (no (unknown) (unknown) (1) Esophageal (units (unknown) date) cancer: unknown) (unknown) (no (unknown) (unknown) [id number] (units (unkno wn) date) unknown) (unknown) (no (unknown) (unknown) 08/09/21 (units (unkno wn) date) unknown) (unknown) (no (unknown) (unknown) 85-year-old man (units (unknown) date) with esophageal unknown) cancer referred for feeding tube placement. (unknown) (no (unknown) (unknown) 85-year-old man (units (unknown) date) with esophageal unknown) cancer who has developed severe esophageal (unknown) (no (unknown) (unknown) ABDOMEN: Soft, (units (unknown) date) non-tender, unknown) non-distended (unknown) (no (unknown) (unknown) Age/Sex: 85 / M (units (unknown) date) Date of Service: unknown) (unknown) (no (unknown) (unknown) Allergies (units (unkn own) date) unknown) (unknown) (no (unknown) (unknown) Assessment + Plan (units (unknown) date) unknown) (unknown) (no (unknown) (unknown) Attending Dr: (units ( unknown) date) Maik Fowler MD unknown) (unknown) (no (unknown) (unknown) BMI 17.3 (units (un known) date) unknown) (unknown) (no (unknown) (unknown) BP 110/70 (units (u nknown) date) unknown) (unknown) (no (unknown) (unknown) Blood Pressure (units (unknown) date) Location Lt unknown) brachial (unknown) (no (unknown) (unknown) CV: Regular rate, (units (unknown) date) no peripheral edema unknown) (unknown) (no (unknown) (unknown) Chief Complaint (units (unknown) date) unknown) (unknown) (no (unknown) (unknown) Chief Complaint: (units (unknown) date) cannot swallow unknown) (unknown) (no (unknown) (unknown) : 1935 (units (unknown) date) Acct:[id number] unknown) (unknown) (no (unknown) (unknown) Dept at (units (unkno wn) date) . unknown) (unknown) (no (unknown) (unknown) Details: (units (unkno wn) date) unknown) (unknown) (no (unknown) (unknown) Diabetes type 2, (units (unknown) date) controlled unknown) (unknown) (no (unknown) (unknown) Documented By: (units (unknown) date) Maik Fowler MD unknown) 08/09/21 0925 (unknown) (no (unknown) (unknown) Essential tremor (units (unknown) date) unknown) (unknown) (no (unknown) (unknown) Exam (units (unkno wn) date) unknown) (unknown) (no (unknown) (unknown) Exam Narrative (units (unknown) date) unknown) (unknown) (no (unknown) (unknown) Exam Narrative: (units (unknown) date) unknown) (unknown) (no (unknown) (unknown) Family History (units (unknown) date) (Reviewed 08/10/21 unknown) @ 08:10 by Maik Fowler MD) (unknown) (no (unknown) (unknown) Father Diabetes (units (unknown) date) mellitus unknown) (unknown) (no (unknown) (unknown) GENERAL: (units (unkno wn) date) Cachectic elderly unknown) man in no apparent distress (unknown) (no (unknown) (unknown) Gastroesophageal (units (unknown) date) reflux disease unknown) (unknown) (no (unknown) (unknown) HEENT: No scleral (units (unknown) date) icterus unknown) (unknown) (no (unknown) (unknown) HPI (units (unkno wn) date) unknown) (unknown) (no (unknown) (unknown) Height 6 ft (units (unknown) date) unknown) (unknown) (no (unknown) (unknown) History of (units (unk nown) date) hydrocelectomy unknown) (12/10/07) (unknown) (no (unknown) (unknown) 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 unknown) (unknown) (no (unknown) (unknown) Hx of bladder (units ( unknown) date) cancer unknown) (unknown) (no (unknown) (unknown) Hx of craniotomy (units (unknown) date) unknown) (unknown) (no (unknown) (unknown) Hx of hernia (units (u nknown) date) repair (12/10/07) unknown) (unknown) (no (unknown) (unknown) Hx of renal (units (un known) date) calculi unknown) (unknown) (no (unknown) (unknown) Hypertension (units (u nknown) date) unknown) (unknown) (no (unknown) (unknown) Intake (units (unkno wn) date) unknown) (unknown) (no (unknown) (unknown) Is patient in (units ( unknown) date) pain?: Yes unknown) (unknown) (no (unknown) (unknown) LUNGS: Mild (units (u nknown) date) increased work of unknown) breathing. Great difficulty speaking with full (unknown) (no (unknown) (unknown) Loc: [facility] (units (unkno wn) date) unknown) (unknown) (no (unknown) (unknown) Medical History (units (unknown) date) (Updated 08/10/21 @ unknown) 08:11 by Maik Fowler MD) (unknown) (no (unknown) (unknown) Open gastrostomy (units (unknown) date) tube placement unknown) (unknown) (no (unknown) (unknown) Operative risks (units (unknown) date) including bleeding, unknown) infection, intestinal injury, leak were (unknown) (no (unknown) (unknown) Oxygen Delivery (units (unknown) date) Method room air unknown) (unknown) (no (unknown) (unknown) PFSH (units (unkno wn) date) unknown) (unknown) (no (unknown) (unknown) Pain Location (units ( unknown) date) unknown) (unknown) (no (unknown) (unknown) Pain Scale (units (unk nown) date) unknown) (unknown) (no (unknown) (unknown) Pain location(s):: (units (unknown) date) 04/18 unknown) (unknown) (no (unknown) (unknown) Patient is not (units (unknown) date) entirely familiar unknown) with his history and a complete set of of (unknown) (no (unknown) (unknown) Patient: (units (unkno wn) date) Vu Elmore unknown) MR#: [id number] (unknown) (no (unknown) (unknown) Plan (units (unkno wn) date) unknown) (unknown) (no (unknown) (unknown) Position (units (unkno wn) date) Sitting unknown) (unknown) (no (unknown) (unknown) Pulse 78 (units (un known) date) unknown) (unknown) (no (unknown) (unknown) Pulse Oximetry (%) (units (unknown) date) 88 L unknown) (unknown) (no (unknown) (unknown) Pulse Source (units (u nknown) date) Monitor unknown) (unknown) (no (unknown) (unknown) Qualified Code(s): (units (unknown) date) C15.9 - Malignant unknown) neoplasm of esophagus, unspecified (unknown) (no (unknown) (unknown) Reason For Visit (units (unknown) date) unknown) (unknown) (no (unknown) (unknown) Signed By: (units (unk nown) date) <Electronically unknown) signed by Maik Fowler MD> (unknown) (no (unknown) (unknown) Smoking Status: (units (unknown) date) Never smoker unknown) (unknown) (no (unknown) (unknown) Smoking Status: (units (unknown) date) Never smoker unknown) (unknown) (no (unknown) (unknown) Social History (units (unknown) date) (Reviewed 08/10/21 unknown) @ 08:10 by Maik Fowler MD) (unknown) (no (unknown) (unknown) Sulfa (Sulfonamide (units (unknown) date) Antibiotics) unknown) Allergy (Unknown, Verified 08/09/21 09:25) (unknown) (no (unknown) (unknown) Surgical History (units (unknown) date) (Reviewed 08/10/21 unknown) @ 08:10 by Maik Fowler MD) (unknown) (no (unknown) (unknown) Temp 95.5 F L (units (unknown) date) unknown) (unknown) (no (unknown) (unknown) Temp Source (units (un known) date) Temporal Artery unknown) Scan (unknown) (no (unknown) (unknown) This note may have (units (unknown) date) been all or unknown) partially generated using voice recognition (unknown) (no (unknown) (unknown) Time Coding (units (un known) date) Minutes Spent: unknown) (must be on same date of service/appointment ) (unknown) (no (unknown) (unknown) Time Spent (units (unk nown) date) unknown) (unknown) (no (unknown) (unknown) Tobacco Status (units (unknown) date) unknown) (unknown) (no (unknown) (unknown) Total Time: 25 (units (unknown) date) unknown) (unknown) (no (unknown) (unknown) Visit Reasons: (units (unknown) date) [facility] pt . unknown) 2020/Gastrostomy tube/Urgent [place] (unknown) (no (unknown) (unknown) Vitals (units (unkno wn) date) unknown) (unknown) (no (unknown) (unknown) We discussed (units (u nknown) date) options for unknown) nutritional support. PEG tube would not be an option (unknown) (no (unknown) (unknown) Weight 128 lb (units (unknown) date) unknown) (unknown) (no (unknown) (unknown) alcohol intake: (units (unknown) date) current unknown) (unknown) (no (unknown) (unknown) cancer. Technical (units (unknown) date) overview of the unknown) operation was discussed with the patient. (unknown) (no (unknown) (unknown) discussed. His (units (unknown) date) questions have been unknown) answered and he is in agreement with this (unknown) (no (unknown) (unknown) dysphagia. (units (unk nown) date) unknown) (unknown) (no (unknown) (unknown) given the degree (units (unknown) date) of esophageal unknown) obstruction that he currently has. he would (unknown) (no (unknown) (unknown) has severe (units (unk nown) date) difficulty unknown) swallowing. For the past 6 weeks he has been unable to (unknown) (no (unknown) (unknown) have occurred. If (units (unknown) date) there are any unknown) questions, please contact the Medical Records (unknown) (no (unknown) (unknown) household members: (units (unknown) date) none unknown) (unknown) (no (unknown) (unknown) however he has no (units (unknown) date) intention of unknown) pursuing any surgical therapy for his esophageal (unknown) (no (unknown) (unknown) instead require (units (unknown) date) open gastrostomy unknown) tube placement. I explained that this could (unknown) (no (unknown) (unknown) limit his ability (units (unknown) date) to proceed with a unknown) future esophagectomy with gastric pull-up (unknown) (no (unknown) (unknown) marital status: (units (unknown) date) unknown) (unknown) (no (unknown) (unknown) may occur. (units (unk nown) date) Occasional unknown) wrong-word or 'sound-alike' substitutions may have (unknown) (no (unknown) (unknown) months. He has no (units (unknown) date) intention of unknown) proceeding with any esophageal surgery. (unknown) (no (unknown) (unknown) no solid food. He (units (unknown) date) has lost a unknown) substantial amount of weight over the past 6 (unknown) (no (unknown) (unknown) occupational (units (u nknown) date) status: previously unknown) employed (unknown) (no (unknown) (unknown) occurred due to (units (unknown) date) the inherent unknown) limitations of voice recognition software. Please (unknown) (no (unknown) (unknown) offered a (units (unkn own) date) esophagectomy with unknown) a gastric pull-up at the [facility] (unknown) (no (unknown) (unknown) plan (units (unkno wn) date) unknown) (unknown) (no (unknown) (unknown) read the note (units ( unknown) date) carefully and unknown) recognize, using context, where these substitutions (unknown) (no (unknown) (unknown) records not (units (unk nown) date) available at this unknown) time. It appears that he has esophageal cancer was (unknown) (no (unknown) (unknown) software. Although (units (unknown) date) every effort is unknown) made to edit content, trim machine adjuster errors (unknown) (no (unknown) (unknown) substance use (units ( unknown) date) type: does not use unknown) (unknown) (no (unknown) (unknown) take any (units (unkno wn) date) significant oral unknown) nutrition. Thin liquids he is still able to pass but (unknown) (no (unknown) (unknown) voice (units (unkno wn) date) unknown) (unknown) (no (unknown) (unknown) which he declined. (units (unknown) date) He is not unknown) currently undergoing any oncologic therapy. He Social History date description facility (no date) Never smoked tobacco (finding) [facility] Vital Signs date measurement value units +0000 BMI BMI 17.3 kg/m2 [id number] BP_diastolic BP_diastolic 70 mm[H g] +0000 BP_systolic BP_systolic 110 mm[Hg] +0000 heart_rate heart_rate 78 /min +0000 height_metric height_metric 182.88 cm [id number]+0000 height_standard height_standard 72 in +0000 temperature_metric temperature_metric 35.28 C +0000 temperature_standard temperature_standard 9 5.5 F +0000 weight_metric weight_metric 26.34 kg [id number] weight_standard weight_standard 58.06 lb
[2021-08-11 13:34] LABS: BASOPHILS # (AUTO) 0.1 10^3/uL (0.0-0.1); BASOPHILS % (AUTO) 0.5 %; EOSINOPHILS # (AUTO) 0.1 10^3/uL (0.0-0.7); EOSINOPHILS % (AUTO) 0.8 %; HCT - HEMATOCRIT 44.7 % (42.0-52.0); HGB - HEMOGLOBIN 14.7 g/dL (14.0-18.0); LYMPHOCYTES # (AUTO) 1.4 10^3/uL (1.5-3.5); LYMPHOCYTES % (AUTO) 12.9 %; MEAN CORPUSCULAR HEMOGLOBIN 32.2 pg (27.0-31.0); MEAN CORPUSCULAR HGB CONC 32.9 g/dL (32.0-36.0); MEAN PLATELET VOLUME 10.2 fL (7.4-11.4); MONOCYTES # (AUTO) 0.6 10^3/uL (0.0-1.0); MONOCYTES % (AUTO) 5.1 %; NEUTROPHILS # (AUTO) 8.8 10^3/uL (1.5-6.6); NEUTROPHILS % (AUTO) 80.4 %; PLT - PLATELET COUNT 362 10^3/uL (130-450); RED BLOOD COUNT 4.56 10^6/uL (4.70-6.10); RED CELL DISTRIBUTION WIDTH 13.2 % (12.0-15.0)
[2021-08-11 13:45] LABS: ALBUMIN/GLOBULIN RATIO 0.9 (1.0-2.2); BILIRUBIN,TOTAL 1.2 mg/dL (0.2-1.0); CALCIUM 10.5 mg/dL (8.5-10.3); CREATININE 1.4 mg/dL (0.6-1.2); POTASSIUM 3.7 mmol/L (3.5-5.0); TOTAL PROTEIN 8.6 g/dL (6.7-8.2)
--- NOTE | 2021-08-11 14:19 | ED Physician Documentation ---
History of Present Illness - Stated complaint Stated Complaint: WEAKNESS - Chief complaint Chief Complaint: General - History obtained from History obtained from: Patient, Family - History of Present Illness Timing: Today Pain level max: 0 Pain level now: 0 - Additonal information Additional information: Patient is an 85-year-old male with a history of a neck mass. He is scheduled to get a G-tube on Thursday. He is here for dehydration and requesting IV fluids. No vomiting. Nothing makes it better or worse. No fevers. No chills. No cough. No abdominal pain. Review of Systems Constitutional: denies: Fever, Chills Nose: denies: Rhinorrhea / runny nose, Congestion GI: denies: Vomiting, Diarrhea Skin: denies: Rash Musculoskeletal: denies: Neck pain, Back pain Neurologic: denies: Headache PD PAST MEDICAL HISTORY - Past Medical History Cardiovascular: None Respiratory: None Neuro: None, Other Endocrine/Autoimmune: Type 2 diabetes GI: GERD : Benign prostate hypertrophy HEENT: Chronic vision loss, Chronic hearing loss Psych: None Musculoskeletal: Chronic back pain Derm: None - Past Surgical History Past Surgical History: Yes General: Colonoscopy, EGD Neuro: Craniotomy - Present Medications Home Medications: Ambulatory Orders Medication Instructions Recorded Confirmed Cholecalciferol (Vitamin D3) 2,000 unit PO DAILY 03/22/18 07/20/18 [Vitamin D3] Cod Liver Oil 1 each PO DAILY 03/22/18 07/20/18 Finasteride 5 mg PO DAILY 03/22/18 07/20/18 Multivitamin [Multivitamins] 1 each PO DAILY 03/22/18 07/20/18 Omeprazole 20 mg PO DAILY 03/22/18 07/20/18 Primidone 75 mg PO BID 03/22/18 07/20/18 Glucosamine Sulfate Dipot Chlr 1,000 mg PO BID 03/23/18 07/20/18 [Glucosamine Sulfate] Rosuvastatin Calcium 5 mg PO DAILY 03/23/18 07/20/18 metFORMIN [Glucophage] 1,500 mg PO TIDWM 03/23/18 07/20/18 Ferrous Gluconate [Fergon] 270 mg PO DAILY #30 tablet 03/24/18 07/20/18 diphenhydrAMINE [Benadryl] 25 mg PO BID PRN #0 03/24/18 07/20/18 Amoxicillin/Potassium Clav 10 ml PO BID #200 ml 07/26/21 [Amox-Clav 400-57 mg/5 ml Susp] - Allergies Allergies/Adverse Reactions: Allergies Allergy/AdvReac Type Severity Reaction Status Date / Time Sulfa (Sulfonamide Allergy Intermediate Rash Verified 08/11/21 13:12 Antibiotics) - Social History Does the pt smoke?: No Smoking Status: Never smoker Does the pt drink ETOH?: No Does the pt have substance abuse?: No - Immunizations Immunizations are current?: Yes - POLST Patient has POLST: No PD ED PE NORMAL - Vitals Vital signs reviewed: Yes - General General: Alert and oriented X 3, No acute distress - HEENT HEENT: Other (dry lips and tongue) - Neck Neck: Supple, no meningeal sign - Cardiac Cardiac: RRR, Strong equal pulses - Respiratory Respiratory: No respiratory distress, Clear bilaterally - Abdomen Abdomen: Soft, Non tender, Non distended - Derm Derm: Warm and dry - Extremities Extremities: No edema - Neuro Neuro: Alert and oriented X 3 - Psych Psych: Normal mood, Normal affect Results - Vitals Vitals: Vital Signs - 24 hr 08/11/21 08/11/21 08/11/21 13:09 15:09 16:00 Temperature 36.6 C Heart Rate 85 63 62 Respiratory 14 15 18 Rate Blood Pressure 143/64 H 166/66 H 133/75 H O2 Saturation 99 100 100 Oxygen O2 Source Room air - Labs Labs: Laboratory Tests 08/11/21 08/11/21 13:27 13:27 WBC 11.0 H RBC 4.56 L Hgb 14.7 Hct 44.7 MCV 98.0 H MCH 32.2 H MCHC 32.9 RDW 13.2 Plt Count 362 MPV 10.2 Neut # (Auto) 8.8 H Lymph # (Auto) 1.4 L [place] # (Auto) 0.6 Eos # (Auto) 0.1 Baso # (Auto) 0.1 Absolute Nucleated RBC 0.00 Nucleated RBC % 0.0 Sodium 142 Potassium 3.7 Chloride 100 L Carbon Dioxide 29 Anion Gap 13.0 BUN 28 H Creatinine 1.4 H Estimated GFR (MDRD) 48 L Glucose 174 H Calcium 10.5 H Total Bilirubin 1.2 H AST 19 ALT 27 Alkaline Phosphatase 92 Total Protein 8.6 H Albumin 4.0 Globulin 4.6 H Albumin/Globulin Ratio 0.9 L Lipase 33 PD MEDICAL DECISION MAKING - ED course Complexity details: reviewed results, re-evaluated patient, considered differential, d/w patient, d/w family ED course: Patient feels much better after IV fluids. No significant lab abnormalities. Patient will follow up with his doctor as scheduled. Patient counseled regarding signs and symptoms for which I believe and urgent re-evaluation would be necessary. Patient with good understanding of and agreement to plan and is comfortable going home at this time This document was made in part using voice recognition software. While efforts are made to proofread this document, sound alike and grammatical errors may occur. Departure - Departure Disposition: 01 Home, Self Care Clinical Impression: Dehydration Condition: Good Instructions: ED Dehydration Follow-Up: Steven Pinedo MD [Primary Care Provider] - Within 1 week Comments: Please follow-up with your doctor for further care. You were given 2 L of fluid today. That should help to get you to your G-tube placement on Thursday. Return if you worsen Discharge Date/Time: 08/11/21 16:27
[2021-08-11 16:27] VITALS: BP 133/75
== END 2021-08-11 16:27 | disposition home or self-care (01) ==
LOC: ED 12:55
DX: E86.0 Dehydration (principal)
CPT/HCPCS: 36415; 80053; 83690; 85025; 96360; 96361; 99282